=== PATIENT | male | born 1935 ===

== ENCOUNTER 2016-12-09 20:04 | Inpatient (IN) | payer MEDICARE, MEDICAID ==
[2016-12-09] MEDS ORDERED: Albuterol-Ipratrop 3 mg / 0.5 (3 ml) UD INH STA (21:22)
--- NOTE | 2016-12-09 21:29 | ED PDOC ---
HPI: Psych/Substance Abuse Time Seen by Provider: 12/09/16 20:08 Chief Complaint (Nursing): Psychiatric Evaluation Chief Complaint (Provider): Psychiatric Evaulation History Per: Other (Nursing report/patient's medication list) History/Exam Limitations: clinical condition Onset/Duration Of Symptoms: Hrs Current Symptoms Are (Timing): Still Present Additional Complaint(s): 20:08 Lorne Marin, an 81 year old male with dementia, presents to the ED on 12/09/16 for a psychiatric evaluation following aggressive behavior reported in his half-way. According to the half-way report, the patient was attempting to hit the staff members and refused to take his medications for unknown reasons. The patient is a poor historian and only reports that he's having a lot of trouble sleeping due to shortness of breath, but is unable to give further details for how long this has been occurring. The patient cannot recall the events being described at the half-way and doesn't know who his doctor is. The patient denies any chest pain, but reports pain in his feet. Of note, the patient's past medical history is obtained through reviewing the patient's medication list. Past Medical History Reviewed: Historical Data, Nursing Documentation, Vital Signs Vital Signs: Last Vital Signs Temp 97.1 F L 12/09/16 20:07 Pulse 76 12/09/16 20:07 Resp 18 12/09/16 20:07 BP 126/55 L 12/09/16 20:07 Pulse Ox 99 12/09/16 20:07 - Medical History PMH: CHF, Dementia, Diabetes, HTN, Pneumonia - Family History Family History: States: Unknown Family Hx - Living Arrangements Living Arrangements: Skilled Nursing/Assist Lvng - Home Medications Home Medications: Ambulatory Orders Medication Instructions Recorded Acetaminophen [Tylenol 325mg tab] 650 mg PO Q4 PRN 12/09/16 Acetaminophen [Tylenol 325mg tab] 650 mg PO Q4 PRN 12/09/16 Albuterol/Ipratropium [Duoneb 3 1 vial INH Q6 PRN 12/09/16 mg/0.5 mg (3 ml) UD] Amino Acids/Protein Hydrolys 30 ml PO DAILY 12/09/16 [Provide Gold Regular Liquid] Atorvastatin [Lipitor] 20 mg PO HS 12/09/16 Bacitracin OINT [Bacitracin OINT] 1 appl TOP Q12 12/09/16 Bacitracin Zinc [Bacitracin Zinc] 1 appl TOP BID 12/09/16 Benzocaine/Menthol [Cepacol Sore 1 darrion PO DAILY PRN 12/09/16 Throat] Carvedilol [Coreg] 6.25 mg PO Q12 12/09/16 Divalproex [Depakote Sprinkles] 125 mg PO BID 12/09/16 Enoxaparin [Lovenox] 40 mg SC DAILY 12/09/16 Famotidine [Pepcid] 20 mg PO BID 12/09/16 Furosemide [Lasix] 20 mg PO DAILY 12/09/16 Gabapentin [Neurontin] 300 mg PO BID 12/09/16 LORazepam [Ativan] 0.5 mg PO Q12 PRN 12/09/16 LORazepam [Ativan] 0.5 mg PO Q8 PRN 12/09/16 Linagliptin [Tradjenta] 5 mg PO DAILY 12/09/16 Magnesium Hydroxide [Milk Of 30 ml PO Q4 PRN 12/09/16 Magnesia] Nystatin [Nystop] 1 appl TOP DAILY 12/09/16 Petrolatum,White/Lanolin [Vitamin 1 appl TOP DAILY 12/09/16 A & D Ointment] Potassium Chloride [K-Dur 20 mEq 20 meq PO DAILY 12/09/16 ER Tab] Sennosides [Natural Senna Laxative] 8.6 mg PO DAILY PRN 12/09/16 Silver Sulfadiazine 1% [Silvadene 1 appl TOP BID 12/09/16 1%] Temazepam [Restoril] 7.5 mg PO HS PRN 12/09/16 traMADol [Ultram] 50 mg PO Q6 PRN 12/09/16 Home Med [Home Med] 1 tab SL DAILY 12/10/16 Home Med [Home Med] 30 ml PO Q4 PRN 12/10/16 - Allergies Allergies/Adverse Reactions: Allergies Allergy/AdvReac Type Severity Reaction Status Date / Time No Known Allergies Allergy Verified 12/09/16 20:07 Review of Systems Review Of Systems: ROS cannot be obtained secondary to pt's inabilty to answer questions. (cannot be obtained due to patient's baseline mental status) Cardiovascular: Negative for: Chest Pain Musculoskeletal: Positive for: Foot Pain Physical Exam - Reviewed Nursing Documentation Reviewed: Yes Vital Signs Reviewed: Yes - Physical Exam Appears: Positive for: Non-toxic, No Acute Distress Head Exam: Positive for: ATRAUMATIC, NORMOCEPHALIC Skin: Positive for: Warm, Dry, Pallor Eye Exam: Positive for: Normal appearance, EOMI, PERRL ENT: Positive for: Pharynx Is (Clear), Other (Moist Mucus Membranes) Neck: Positive for: Normal, Painless ROM, Supple Cardiovascular/Chest: Positive for: Irregularly Irregular. Negative for: Murmur Respiratory: Positive for: Accessory Muscle Use (specifically abdominal breathing), Rhonchi (diffuse b/l) Gastrointestinal/Abdominal: Positive for: Normal Exam, Soft. Negative for: Tenderness, Distended, Guarding, Rebound Back: Positive for: Normal Inspection. Negative for: Decreased ROM Extremity: Positive for: Swelling (Trace bilateral lower leg edema), Other ( multiple ecchymotic lesions noted to extremities; skin breakdown on left heel; abrasions on toes bilaterally; bilateral feet are cool with weak pedal pulses) Lymphatic: Negative for: Adenopathy Neurologic/Psych: Positive for: Alert, Oriented (x2). Negative for: Motor/ Sensory Deficits - Laboratory Results Result Diagrams: 12/10/16 05:05 12/10/16 05:10 - ECG O2 Sat by Pulse Oximetry: 99 (RA) Pulse Ox Interpretation: Normal Medical Decision Making Medical Decision Makin:08 Initial Impression: Altered Mental Status and Shortness of Breath Differential diagnoses includes CHF, COPD exacerbation, pneumonia, sepsis, electrolyte abnormality, dementia Initial Plan: * Chest Portable [RAD] Stat * Type and Screen Routine * ABG Shock Panel Stat * EKG Stat * Alcohol Serum Stat * B-type Natriuretic Peptide Stat * COMP Metabolic Panel Stat * LACT Acid, Plasma Stat * Magnesium Stat * Phosphorus Stat * Troponin I Stat * ED Urine Dipstick (POC) Stat * CBC (with differential) * Partial Thromboplastin time [COAG] Stat * Prothrombin Time [COAG] Stat * Duoneb 3 mg/0.5 mg (3 ml) UD 3ml INH Stat * Lasix 40 mg IVP Stat * Blood Culture Stat Pt appears more comfortable breathing post nebs. CXR demonstrate no inf/eff. Pt to be hospitalized for COPD/CHF exacerbation. [facility] Pt began to become agitated in ER (possible owning) and unable to redirect. Given initially ativan (which is prescribed for half-way stay as well. Also given Haldol. Scribe Attestation: Documented by Renetta Willis, training under Jayde Jimenez, acting as a scribe for Shana Ferguson MD. Provider Scribe Attestation: All medical record entries made by the Scribe were at my direction and personally dictated by me. I have reviewed the chart and agree that the record accurately reflects my personal performance of the history, physical exam, medical decision making, and the department course for this patient. I have also personally directed, reviewed, and agree with the discharge instructions and disposition. Disposition - Clinical Impression Clinical Impression: Altered mental status, CHF exacerbation, COPD exacerbation - Disposition Disposition Time: 22:00 Condition: FAIR - Pt Status Changed To: Hospital Disposition Of: Inpatient - Admit Certification Admit to Inpatient:: After my assessment, the patient will require hospitalization for at least two midnights. This is because of the severity of symptoms shown, intensity of services needed, and/or the medical risk in this patient being treated as an outpatient. - POA Present On Arrival: None
[2016-12-09 21:30] LABS: BASO # 0.1 K/uL (0.0-0.2); BASO % 1.5 % (0.0-2.0); EOS # 0.3 K/uL (0.0-0.7); EOS % 3.7 % (0.0-4.0); HEMATOCRIT 41.3 % (35.0-51.0); LYMPH # 1.1 K/uL (1.0-4.3); MEAN CELL VOLUME 96.1 fl (80.0-94.0); MEAN CORPUSCULAR HGB CONC 33.3 g/dL (33.0-37.0); MONO # 0.8 K/uL (0.0-0.8); MONO % 9.4 % (0.0-10.0); NEUT # 6.1 K/uL (1.8-7.0); NEUT % 72.4 % (50.0-75.0); RED CELL DISTRIBUTION WIDTH 13.2 % (11.5-14.5); WHITE BLOOD COUNT 8.4 K/uL (4.8-10.8)
[2016-12-09 21:41] LABS: ALCOHOL SERUM < 10 mg/dl (0-10); ALKALINE PHOSPHATASE 87 U/L (38-126); ALT/SGPT 82 U/L (21-72); AST/SGOT 70 U/L (17-59); BILIRUBIN,TOTAL 1.1 mg/dl (0.2-1.3); BLOOD UREA NITROGEN 12 mg/dl (9-20); CALCIUM 8.7 mg/dL (8.4-10.2); CARBON DIOXIDE 32 mmol/L (22-30); CHLORIDE 103 mmol/L (98-107); GFR AFRICAN-AMERICAN > 60; GLUCOSE,RANDOM 126 mg/dL (75-110); MAGNESIUM 2.1 MG/DL (1.6-2.3); PHOSPHOROUS 2.4 mg/dl (2.5-4.5); POTASSIUM 4.1 MMOL/L (3.6-5.0); SODIUM 144 mmol/l (132-148)
[2016-12-09] MEDS ORDERED: Albuterol-Ipratrop 3 mg / 0.5 (3 ml) UD ONE (22:26)
[2016-12-09 22:59] LABS: PARTIAL THROMBOPLASTIN TIME 25.1 SECONDS (23.3-32.5)
[2016-12-10 00:43] LABS: RBC URINE 1 /hpf (0-3); URINE BILIRUBIN NEGATIVE (NEGATIVE); URINE BLOOD SMALL (NEGATIVE); URINE COLOR COLORLESS (YELLOW); URINE GLUCOSE (UA) NEG (Normal); URINE KETONE NEGATIVE (NEGATIVE); URINE LEUKOCYTE ESTERASE NEG Leu/uL (Negative); URINE PROTEIN NEGATIVE (NEGATIVE); URINE UROBILINOGEN 0.2-1.0 mg/dL (0.2-1.0); WBC URINE < 1 /hpf (0-5)
[2016-12-10] MEDS ORDERED: Magnesium Hydroxide Susp 30 ml UD PO PRN (02:08)
[2016-12-10] MEDS ORDERED: Benzocaine/Menthol (Cepacol) Lozenge PO PRN (02:08)
[2016-12-10] MEDS ORDERED: TEMAZEPAM 7.5 MG PO PRN (02:08)
[2016-12-10 06:54] LABS: BASO # 0.1 K/uL (0.0-0.2); BASO % 0.7 % (0.0-2.0); EOS # 0.4 K/uL (0.0-0.7); EOS % 3.7 % (0.0-4.0); HEMATOCRIT 40.2 % (35.0-51.0); LYMPH # 1.3 K/uL (1.0-4.3); LYMPH % 13.3 % (20.0-40.0); MEAN CELL VOLUME 95.1 fl (80.0-94.0); MEAN CORPUSCULAR HEMOGLOBIN 31.8 pg (27.0-31.0); MEAN CORPUSCULAR HGB CONC 33.4 g/dL (33.0-37.0); MEAN PLATELET VOLUME 10.7 fl (7.2-11.7); MONO # 1.1 K/uL (0.0-0.8); MONO % 11.2 % (0.0-10.0); NEUT % 71.1 % (50.0-75.0); NRBC % 0.2 % (0.0-0.0); RED CELL DISTRIBUTION WIDTH 12.9 % (11.5-14.5); WHITE BLOOD COUNT 9.8 K/uL (4.8-10.8)
[2016-12-10 07:05] LABS: ALKALINE PHOSPHATASE 96 U/L (38-126); ALT/SGPT 81 U/L (21-72); AST/SGOT 55 U/L (17-59); BLOOD UREA NITROGEN 11 mg/dl (9-20); CALCIUM 8.7 mg/dL (8.4-10.2); CARBON DIOXIDE 33 mmol/L (22-30); CHLORIDE 101 mmol/L (98-107); GFR AFRICAN-AMERICAN > 60; GLUCOSE,RANDOM 122 mg/dL (75-110); POTASSIUM 3.3 MMOL/L (3.6-5.0); SODIUM 147 mmol/l (132-148); TOTAL PROTEIN 5.7 G/DL (6.3-8.2)
--- NOTE | 2016-12-10 07:14 | CP.PCM.HP ---
History of Present Illness - History of Present Illness History of Present Illness: pt sent by [facility] for agitation/confusion. no other complaints. no cp, dyspnea. was initiated stated to have chf/copd exacerbation in er but cardio stated that there is no further tx to be rednered fo these dx. pt in o distress. pt is agitated pulling at [place]. Present on Admission - Present on Admission Any Indicators Present on Admission: No Review of Systems - Psychiatric Psychiatric: As Per HPI, Behavioral Changes Past Patient History - Past Social History Smoking Status: Never Smoked - CARDIAC Hx Cardiac Disorders: Yes - PULMONARY Hx Respiratory Disorders: Yes - NEUROLOGICAL Hx Dementia: Yes - ENDOCRINE/METABOLIC Hx Endocrine Disorders: Yes - MUSCULOSKELETAL/RHEUMATOLOGICAL Hx Falls: (na) - PSYCHIATRIC Hx Psychophysiologic Disorder: Yes Meds Allergies/Adverse Reactions: Allergies Allergy/AdvReac Type Severity Reaction Status Date / Time No Known Allergies Allergy Verified 12/09/16 20:07 Physical Exam - Constitutional Appears: Well, Non-toxic, No Acute Distress - Head Exam Head Exam: ATRAUMATIC, NORMAL INSPECTION, NORMOCEPHALIC - Eye Exam Eye Exam: EOMI, Normal appearance, PERRL Pupil Exam: NORMAL ACCOMODATION, PERRL - ENT Exam ENT Exam: Mucous Membranes Moist, Normal Exam - Neck Exam Neck exam: Positive for: Normal Inspection - Respiratory Exam Respiratory Exam: Clear to Auscultation Bilateral, NORMAL BREATHING PATTERN - Cardiovascular Exam Cardiovascular Exam: REGULAR RHYTHM, RRR, +S1, +S2 - GI/Abdominal Exam GI & Abdominal Exam: Normal Bowel Sounds, Soft. absent: Tenderness - Extremities Exam Extremities exam: Positive for: full ROM, normal capillary refill, normal inspection, pedal pulses present - Back Exam Back exam: NORMAL INSPECTION - Neurological Exam Neurological exam: Alert, CN II-XII Intact, Normal Gait, Oriented x3, Reflexes Normal - Psychiatric Exam Psychiatric exam: Normal Affect, Normal Mood - Skin Skin Exam: Dry, Intact, Normal Color, Warm Results - Vital Signs Recent Vital Signs: Last Vital Signs Temp 98.4 F 12/10/16 01:12 Pulse 83 12/10/16 01:12 Resp 22 12/10/16 03:57 BP 132/55 L 12/10/16 01:12 Pulse Ox 99 12/10/16 03:57 - Labs Result Diagrams: 12/10/16 05:05 04/26/17 05:10 Labs: Laboratory Results - last 24 hr 12/10/16 12/10/16 00:00 05:19 POC Glucose (mg/dL) 125 H Urine Color Colorless Urine Clarity Clear Urine pH 7.0 Ur Specific [place] 1.005 Urine Protein Negative Urine Glucose (UA) Neg Urine Ketones Negative Urine Blood Small Urine Nitrate Negative Urine Bilirubin Negative Urine Urobilinogen 0.2-1.0 Ur Leukocyte Esterase Neg Urine RBC (Auto) 1 Urine Microscopic WBC < 1 Assessment & Plan (1) DVT prophylaxis Assessment and Plan: scd and aehose lovenox Status: Acute (2) Altered mental status Assessment and Plan: likely dmentia related neuro incr depakote as level not therapeutic psych for geropsych admission Status: Acute (3) CHF exacerbation Assessment and Plan: cont meds, cardio Status: Acute (4) COPD exacerbation Assessment and Plan: cont home meds Status: Acute Decision To Admit - Pt Status Changed To: Hospital Disposition Of: Observation - . Bed Request Type: Telemetry Admitting Physician: Gertrude Garcia
--- NOTE | 2016-12-10 08:25 | CP.PCM.CON ---
History of Present Illness - History of Present Illness History of Present Illness: Patient was brought to [facility] for evaluation of chest pain The patien has been agitated and does not provide history. He is llying comfortably in bed, He is attempting to pull off telmetry monitor. Review of Systems - Review of Systems Systems not reviewed;Unavailable: Altered Mental Status Past Patient History - Past Social History Smoking Status: Never Smoked - CARDIAC Hx Cardiac Disorders: Yes - PULMONARY Hx Respiratory Disorders: Yes - NEUROLOGICAL Hx Dementia: Yes - ENDOCRINE/METABOLIC Hx Endocrine Disorders: Yes - MUSCULOSKELETAL/RHEUMATOLOGICAL Hx Falls: (na) - PSYCHIATRIC Hx Psychophysiologic Disorder: Yes Meds Allergies/Adverse Reactions: Allergies Allergy/AdvReac Type Severity Reaction Status Date / Time No Known Allergies Allergy Verified 12/09/16 20:07 - Medications Medications: Current Medications Acetaminophen (Tylenol 325mg Tab) 650 mg PO Q4 PRN PRN Reason: Pain, Mild (1-3) Albuterol/Ipratropium (Duoneb 3 Mg/0.5 Mg (3 Ml) Ud) 3 ml INH Q6 PRN PRN Reason: Shortness of Breath Atorvastatin Calcium (Lipitor) 20 mg PO HS [facility] Bacitracin (Bacitracin Oint) 1 applic TOP Q12 [facility] Benzocaine/Menthol (Cepacol Sore Throat) 1 darrion PO DAILY PRN PRN Reason: Sore Throat Carvedilol (Coreg) 6.25 mg PO Q12 [facility] Divalproex Sodium (Depakote Sprinkles) 125 mg PO BID [facility] Enoxaparin Sodium (Lovenox) 40 mg SC DAILY [facility] PRN Reason: Protocol Famotidine (Pepcid) 20 mg PO BID [facility] Furosemide (Lasix) 20 mg PO DAILY [facility] Gabapentin (Neurontin) 300 mg PO BID [facility] Home Med (Amino Acids/Protein Hydrolys [Provide Gold Regular Liquid]) 30 ml PO DAILY [facility] Lorazepam (Ativan) 0.5 mg PO Q8 PRN PRN Reason: Agitation Lorazepam (Ativan) 0.5 mg IVP Q8 PRN PRN Reason: Agitation Last Admin: 12/10/16 08:13 Dose: 0.5 mg Magnesium Hydroxide (Milk Of Magnesia) 30 ml PO Q4 PRN PRN Reason: Heartburn Nystatin (Nystop Topical Powder) 1 applic TOP DAILY [facility] Potassium Chloride (K-Dur 20 Meq Er Tab) 20 meq PO DAILY [facility] Sennosides (Senokot Tab) 8.6 mg PO DAILY PRN PRN Reason: Constipation Silver Sulfadiazine (Silvadene 1% 20 Gm) 1 ea TOP BID [facility] Sitagliptin Phosphate (Januvia) 100 mg PO DAILY [facility] Temazepam (Restoril) 7.5 mg PO HS PRN PRN Reason: Insomnia Tramadol HCl (Ultram) 50 mg PO Q6 PRN PRN Reason: Pain, moderate (4-7) Vitamin A (Vitamin A & D Oint Ud Foilpak) 1 ea TOP DAILY [facility] Physical Exam - Constitutional Appears: Confused - Head Exam Head Exam: NORMAL INSPECTION - Eye Exam Eye Exam: Normal appearance - ENT Exam ENT Exam: Mucous Membranes Moist - Neck Exam Neck exam: Positive for: Full Rom - Respiratory Exam Respiratory Exam: Decreased Breath Sounds - Cardiovascular Exam Cardiovascular Exam: REGULAR RHYTHM - GI/Abdominal Exam GI & Abdominal Exam: Normal Bowel Sounds - Rectal Exam Rectal Exam: Deferred - Extremities Exam Extremities exam: Positive for: pedal edema - Back Exam Back exam: NORMAL INSPECTION - Neurological Exam Neurological exam: Alert, Oriented x3 - Psychiatric Exam Psychiatric exam: Normal Affect Results - Vital Signs Recent Vital Signs: Last Vital Signs Temp 97.9 F 12/10/16 08:15 Pulse 50 L 12/10/16 08:15 Resp 18 12/10/16 08:15 BP 132/77 12/10/16 08:15 Pulse Ox 94 L 12/10/16 08:15 - Labs Result Diagrams: 12/11/16 05:05 12/11/16 05:05 Labs: Laboratory Results - last 24 hr 12/10/16 12/10/16 12/10/16 00:00 05:05 05:10 WBC 9.8 RBC 4.23 L Hgb 13.4 Hct 40.2 MCV 95.1 H MCH 31.8 H MCHC 33.4 RDW 12.9 Plt Count 151 MPV 10.7 Neut % (Auto) 71.1 Lymph % (Auto) 13.3 L [place] % (Auto) 11.2 H Eos % (Auto) 3.7 Baso % (Auto) 0.7 Neut # 7.0 Lymph # 1.3 [place] # 1.1 H Eos # 0.4 Baso # 0.1 Sodium 147 Potassium 3.3 L Chloride 101 Carbon Dioxide 33 H Anion Gap 16 BUN 11 Creatinine 0.8 Est GFR ( Amer) > 60 Est GFR (Non-Af Amer) > 60 POC Glucose (mg/dL) Random Glucose 122 H Calcium 8.7 Total Bilirubin 1.0 AST 55 ALT 81 H Alkaline Phosphatase 96 Troponin I < 0.0120 NT-Pro-B Natriuret Pep 230 Total Protein 5.7 L Albumin 2.9 L Globulin 2.8 Albumin/Globulin Ratio 1.0 Urine Color Colorless Urine Clarity Clear Urine pH 7.0 Ur Specific [place] 1.005 Urine Protein Negative Urine Glucose (UA) Neg Urine Ketones Negative Urine Blood Small Urine Nitrate Negative Urine Bilirubin Negative Urine Urobilinogen 0.2-1.0 Ur Leukocyte Esterase Neg Urine RBC (Auto) 1 Urine Microscopic WBC < 1 12/10/16 05:19 WBC RBC Hgb Hct MCV MCH MCHC RDW Plt Count MPV Neut % (Auto) Lymph % (Auto) [place] % (Auto) Eos % (Auto) Baso % (Auto) Neut # Lymph # [place] # Eos # Baso # Sodium Potassium Chloride Carbon Dioxide Anion Gap BUN Creatinine Est GFR ( Amer) Est GFR (Non-Af Amer) POC Glucose (mg/dL) 125 H Random Glucose Calcium Total Bilirubin AST ALT Alkaline Phosphatase Troponin I NT-Pro-B Natriuret Pep Total Protein Albumin Globulin Albumin/Globulin Ratio Urine Color Urine Clarity Urine pH Ur Specific [place] Urine Protein Urine Glucose (UA) Urine Ketones Urine Blood Urine Nitrate Urine Bilirubin Urine Urobilinogen Ur Leukocyte Esterase Urine RBC (Auto) Urine Microscopic WBC - EKG Data EKG Interpreted by: Myself Assessment & Plan (1) Chest pain Assessment and Plan: unclear etiology. Patient does not offer history. would consider checking cardiac enzymes. If negative no further workup required. Status: Acute
--- NOTE | 2016-12-10 08:42 | CARD ---
APPROVED REPORT EKG Measurement Heart [id number] <Conclusion> Sinus rhythm with APCs. Low voltage QRS Abnormal ECG
[2016-12-10] MEDS ORDERED: Potassium Chloride 20 mEq/15 ml LIQ UD PO ONE (08:57)
[2016-12-10] MEDS ORDERED: AMINO ACIDS PO SCH (09:00)
[2016-12-10] MEDS ORDERED: APPL TOP SCH (09:00)
[2016-12-10] MEDS ORDERED: LANOLIN TOP SCH (09:00)
[2016-12-10] MEDS ORDERED: PETROLATUM WHITE TOP SCH (09:00)
[2016-12-10] MEDS ORDERED: PROTEIN HYDROLYS PO SCH (09:00)
[2016-12-10] MEDS ORDERED: Divalproex 125 mg Sprinkle Capsule PO SCH (09:00)
[2016-12-10] MEDS ORDERED: [UNRECOGNIZED DRUG - OTHER] TOP SCH (09:00)
[2016-12-10] MEDS: Bacitracin OINT 15GM TOP SCH ×2 (11:13→21:15)
[2016-12-10] MEDS: Enoxaparin 40 mg Syringe SC SCH (11:14)
[2016-12-10] MEDS: Vitamins A & D Oint UD Foilpak TOP SCH (11:15)
[2016-12-10] MEDS: Silver Sulfadiazine 1% Cream (20 gm) TOP SCH ×2 (11:15→16:23)
[2016-12-10] MEDS: Potassium Chloride 20 mEq ER Tab PO SCH (11:15)
--- NOTE | 2016-12-10 11:19 | RAD ---
HISTORY: Shortness of breath. Upright study 21:00. COMPARISON: No prior. FINDINGS: LUNGS: Atelectasis at the lung bases. PLEURA: No significant pleural effusion identified, no pneumothorax apparent. CARDIOVASCULAR: No radiographic findings to suggest acute or significant cardiovascular disease. OSSEOUS STRUCTURES: No significant abnormalities. VISUALIZED UPPER ABDOMEN: Normal. OTHER FINDINGS: None. IMPRESSION: No active disease.
--- NOTE | 2016-12-10 14:02 | CP.PCM.CON ---
History of Present Illness - History of Present Illness History of Present Illness: psychiatry consult ordered by yulisa virk reason: agitation reviewed chart, spoke to Betsy Jeffries apn. pt is now away at a CT scan. he is sedated from getting haldol, ativan eariler today. will reassess in morning would avoid using ativan as it may worsen confusion and disinhibit pt as well as increase fall risk would use risperdal mtab 0.5mg q6hr for agitation would check a depakote level and t/c titrating up dose for aggression again, will reassess in am when pt is awake and not at CT Past Patient History - Past Social History Smoking Status: Never Smoked - CARDIAC Hx Cardiac Disorders: Yes - PULMONARY Hx Respiratory Disorders: Yes - NEUROLOGICAL Hx Dementia: Yes - ENDOCRINE/METABOLIC Hx Endocrine Disorders: Yes - MUSCULOSKELETAL/RHEUMATOLOGICAL Hx Falls: (na) - PSYCHIATRIC Hx Psychophysiologic Disorder: Yes Meds Allergies/Adverse Reactions: Allergies Allergy/AdvReac Type Severity Reaction Status Date / Time No Known Allergies Allergy Verified 12/09/16 20:07 - Medications Medications: Current Medications Acetaminophen (Tylenol 325mg Tab) 650 mg PO Q4 PRN PRN Reason: Pain, Mild (1-3) Albuterol/Ipratropium (Duoneb 3 Mg/0.5 Mg (3 Ml) Ud) 3 ml INH Q6 PRN PRN Reason: Shortness of Breath Atorvastatin Calcium (Lipitor) 20 mg PO HS [facility] Bacitracin (Bacitracin Oint) 1 applic TOP Q12 [facility] Last Admin: 12/10/16 11:13 Dose: Not Given Benzocaine/Menthol (Cepacol Sore Throat) 1 darrion PO DAILY PRN PRN Reason: Sore Throat Carvedilol (Coreg) 6.25 mg PO Q12 [facility] Last Admin: 12/10/16 11:13 Dose: Not Given Divalproex Sodium (Depakote Sprinkles) 125 mg PO BID [facility] Last Admin: 12/10/16 11:14 Dose: Not Given Enoxaparin Sodium (Lovenox) 40 mg SC DAILY [facility] PRN Reason: Protocol Last Admin: 12/10/16 11:14 Dose: Not Given Famotidine (Pepcid) 20 mg PO BID [facility] Last Admin: 12/10/16 11:15 Dose: Not Given Furosemide (Lasix) 20 mg PO DAILY [facility] Last Admin: 12/10/16 11:14 Dose: Not Given Gabapentin (Neurontin) 300 mg PO BID [facility] Last Admin: 12/10/16 11:15 Dose: Not Given Home Med (Amino Acids/Protein Hydrolys [Provide Gold Regular Liquid]) 30 ml PO DAILY [facility] Lorazepam (Ativan) 0.5 mg PO Q8 PRN PRN Reason: Agitation Lorazepam (Ativan) 0.5 mg IVP Q8 PRN PRN Reason: Agitation Last Admin: 12/10/16 08:13 Dose: 0.5 mg Magnesium Hydroxide (Milk Of Magnesia) 30 ml PO Q4 PRN PRN Reason: Heartburn Nystatin (Nystop Topical Powder) 1 applic TOP DAILY [facility] Last Admin: 12/10/16 11:15 Dose: Not Given Potassium Chloride (K-Dur 20 Meq Er Tab) 20 meq PO DAILY [facility] Last Admin: 12/10/16 11:15 Dose: Not Given Sennosides (Senokot Tab) 8.6 mg PO DAILY PRN PRN Reason: Constipation Silver Sulfadiazine (Silvadene 1% 20 Gm) 1 ea TOP BID [facility] Last Admin: 12/10/16 11:15 Dose: Not Given Sitagliptin Phosphate (Januvia) 100 mg PO DAILY [facility] Last Admin: 12/10/16 11:14 Dose: Not Given Temazepam (Restoril) 7.5 mg PO HS PRN PRN Reason: Insomnia Tramadol HCl (Ultram) 50 mg PO Q6 PRN PRN Reason: Pain, moderate (4-7) Vitamin A (Vitamin A & D Oint Ud Foilpak) 1 ea TOP DAILY [facility] Last Admin: 12/10/16 11:15 Dose: Not Given Results - Vital Signs Recent Vital Signs: Last Vital Signs Temp 98.0 F 12/10/16 12:23 Pulse 102 H 12/10/16 12:23 Resp 20 12/10/16 12:23 BP 133/69 12/10/16 12:23 Pulse Ox 95 12/10/16 12:23 - Labs Result Diagrams: 12/10/16 05:05 12/10/16 05:10
--- NOTE | 2016-12-10 15:06 | CT ---
PROCEDURE: CT HEAD WITHOUT CONTRAST. HISTORY: AMS COMPARISON: None available. TECHNIQUE: Axial computed tomography images were obtained through the head/brain without intravenous contrast. Radiation dose: Total exam DLP = 1860.40 mGy-cm. This CT exam was performed using one or more of the following dose reduction techniques: Automated exposure control, adjustment of the mA and/or kV according to patient size, and/or use of iterative reconstruction technique. FINDINGS: Please note that this examination is incomplete. Patient uncooperative and moving during examination. A portion of the posterior fossa was not evaluated this examination. This includes a portion of the inferior occipital lobes and the cerebellum. . HEMORRHAGE: No intracranial hemorrhage. BRAIN: No intracranial mass. Moderate age-appropriate diffuse atrophy. Mild periventricular white matter lucency consistent with microvascular ischemic change. Very small lacunar infarct in body of left caudate nucleus. No evidence of acute infarct. VENTRICLES: Mild ex vacuo dilatation consistent with degree surrounding atrophy. No hydrocephalus. No midline shift. CALVARIUM: Unremarkable PARANASAL SINUSES: Mild chronic pansinusitis. MASTOID AIR CELLS: Bilateral mastoid effusions, nonspecific. OTHER FINDINGS: None. IMPRESSION: Limited examination. Due to patient motion and uncooperative 80, a portion of the posterior fossa was not evaluated at this time. No intracranial mass, hemorrhage or evidence of acute infarct. Mild chronic pansinusitis. Bilateral nonspecific mastoid effusions. Age-appropriate involutional changes.
--- NOTE | 2016-12-10 16:50 | CP.PCM.CON ---
History of Present Illness - History of Present Illness History of Present Illness: Mr. Marin is an 81-year-old man with dementia who was transferred from the custodial after he became combative and agitated. The patient continues to be confused and is difficult to converse with. He continuously moves his arms and legs in a resistant manner and seems to be upset about his positioning. He just recently returned form CT scan of the head, which did not show any acute findings despite a significant amount of motion artifact. Review of Systems - Review of Systems Systems not reviewed;Unavailable: Dementia, Altered Mental Status Past Patient History - Past Social History Smoking Status: Never Smoked - CARDIAC Hx Cardiac Disorders: Yes - PULMONARY Hx Respiratory Disorders: Yes - NEUROLOGICAL Hx Dementia: Yes - ENDOCRINE/METABOLIC Hx Endocrine Disorders: Yes - MUSCULOSKELETAL/RHEUMATOLOGICAL Hx Falls: (na) - PSYCHIATRIC Hx Psychophysiologic Disorder: Yes Meds Allergies/Adverse Reactions: Allergies Allergy/AdvReac Type Severity Reaction Status Date / Time No Known Allergies Allergy Verified 12/09/16 20:07 - Medications Medications: Current Medications Acetaminophen (Tylenol 325mg Tab) 650 mg PO Q4 PRN PRN Reason: Pain, Mild (1-3) Albuterol/Ipratropium (Duoneb 3 Mg/0.5 Mg (3 Ml) Ud) 3 ml INH Q6 PRN PRN Reason: Shortness of Breath Atorvastatin Calcium (Lipitor) 20 mg PO HS [facility] Bacitracin (Bacitracin Oint) 1 applic TOP Q12 [facility] Last Admin: 12/10/16 11:13 Dose: Not Given Benzocaine/Menthol (Cepacol Sore Throat) 1 darrion PO DAILY PRN PRN Reason: Sore Throat Carvedilol (Coreg) 6.25 mg PO Q12 [facility] Last Admin: 12/10/16 11:13 Dose: Not Given Divalproex Sodium (Depakote Sprinkles) 250 mg PO BID [facility] Enoxaparin Sodium (Lovenox) 40 mg SC DAILY [facility] PRN Reason: Protocol Last Admin: 12/10/16 11:14 Dose: Not Given Famotidine (Pepcid) 20 mg PO BID [facility] Last Admin: 12/10/16 16:23 Dose: Not Given Furosemide (Lasix) 20 mg PO DAILY [facility] Last Admin: 12/10/16 11:14 Dose: Not Given Gabapentin (Neurontin) 300 mg PO BID [facility] Last Admin: 12/10/16 16:23 Dose: Not Given Home Med (Amino Acids/Protein Hydrolys [Provide Gold Regular Liquid]) 30 ml PO DAILY [facility] Lorazepam (Ativan) 0.5 mg PO Q8 PRN PRN Reason: Agitation Lorazepam (Ativan) 0.5 mg IVP Q8 PRN PRN Reason: Agitation Last Admin: 12/10/16 08:13 Dose: 0.5 mg Magnesium Hydroxide (Milk Of Magnesia) 30 ml PO Q4 PRN PRN Reason: Heartburn Nystatin (Nystop Topical Powder) 1 applic TOP DAILY [facility] Last Admin: 12/10/16 11:15 Dose: Not Given Potassium Chloride (K-Dur 20 Meq Er Tab) 20 meq PO DAILY [facility] Last Admin: 12/10/16 11:15 Dose: Not Given Risperidone (Risperdal Tab) 0.5 mg PO Q6 PRN PRN Reason: Agitation Sennosides (Senokot Tab) 8.6 mg PO DAILY PRN PRN Reason: Constipation Silver Sulfadiazine (Silvadene 1% 20 Gm) 1 ea TOP BID [facility] Last Admin: 12/10/16 16:23 Dose: Not Given Sitagliptin Phosphate (Januvia) 100 mg PO DAILY [facility] Last Admin: 12/10/16 11:14 Dose: Not Given Temazepam (Restoril) 7.5 mg PO HS PRN PRN Reason: Insomnia Tramadol HCl (Ultram) 50 mg PO Q6 PRN PRN Reason: Pain, moderate (4-7) Vitamin A (Vitamin A & D Oint Ud Foilpak) 1 ea TOP DAILY [facility] Last Admin: 12/10/16 11:15 Dose: Not Given Physical Exam - Constitutional Appears: Unkempt, Combative, Agitated, Confused - Head Exam Head Exam: ATRAUMATIC, NORMAL INSPECTION, NORMOCEPHALIC - Eye Exam Eye Exam: EOMI, Normal appearance, PERRL - ENT Exam ENT Exam: Mucous Membranes Moist, Normal Exam - Neck Exam Neck exam: Positive for: Normal Inspection - Respiratory Exam Respiratory Exam: Clear to Auscultation Bilateral, NORMAL BREATHING PATTERN - Cardiovascular Exam Cardiovascular Exam: REGULAR RHYTHM, +S1, +S2 - GI/Abdominal Exam GI & Abdominal Exam: Normal Bowel Sounds, Soft. absent: Tenderness - Rectal Exam Rectal Exam: Deferred - Back Exam Back exam: NORMAL INSPECTION - Neurological Exam Neurological exam: Altered Additional comments: Moves all extremities, speech is somewhat dysarthric, does not follow commands, answers only his name. Difficult to examine more extensively - Psychiatric Exam Psychiatric exam: Agitated Results - Vital Signs Recent Vital Signs: Last Vital Signs Temp 97.4 F L 12/10/16 16:00 Pulse 80 12/10/16 16:00 Resp 20 12/10/16 16:00 BP 129/83 12/10/16 16:00 Pulse Ox 96 12/10/16 16:00 - Labs Result Diagrams: 12/10/16 05:05 12/10/16 05:10 Labs: Laboratory Results - last 24 hr 12/10/16 12/10/16 12/10/16 14:13 14:13 16:13 POC Glucose (mg/dL) 164 H Vitamin B12 > 1000 H Valproic Acid < 10.0 L - Imaging and Cardiology CT scan - head Status: Image reviewed by me, Report reviewed by me (No acute findings. Poor quality. ) Assessment & Plan (1) Encephalopathy Assessment and Plan: The patient likely has advanced dementia and may have a psychiatric component as well. I recommend avoiding benzodiazepines, but may consider a small dose of Seroquel or Risperdal, per psychiatry. Continue adequate hydration with NS at 100 mL/hr, infectious work-up with cultures and urinalysis, DVT prophylaxis. Thank you for this consultation. Status: Acute Priority: High
[2016-12-10] MEDS: Divalproex 125 mg Sprinkle Capsule PO SCH (19:52)
[2016-12-10 22:32] LABS: FOLATE > 20.0 ng/mL
--- NOTE | 2016-12-11 06:53 | CP.PCM.PN ---
Subjective - Date & Time of Evaluation Date of Evaluation: 12/11/16 Time of Evaluation: 06:53 - Subjective Subjective: pt sleeping in bed w/ 1L1 at bedside. no distres. pt still w/ agitation requiring medication for sedation. pt pulled blackmon despite these monitoring. bw noted wnl. k low butpt on daily kdur. cleared by neuro and cardio pendign psych dispo Objective - Vital Signs/Intake and Output Vital Signs (last 24 hours): Temp Pulse Resp BP Pulse Ox 97.8 F 82 16 146/64 95 12/11/16 05:20 12/11/16 05:20 12/11/16 05:20 12/11/16 05:20 12/11/16 05:20 - Medications Medications: Current Medications Acetaminophen (Tylenol 325mg Tab) 650 mg PO Q4 PRN PRN Reason: Pain, Mild (1-3) Albuterol/Ipratropium (Duoneb 3 Mg/0.5 Mg (3 Ml) Ud) 3 ml INH Q6 PRN PRN Reason: Shortness of Breath Atorvastatin Calcium (Lipitor) 20 mg PO HS [facility] Last Admin: 12/10/16 21:16 Dose: 20 mg Bacitracin (Bacitracin Oint) 1 applic TOP Q12 [facility] Last Admin: 12/10/16 21:15 Dose: 1 applic Benzocaine/Menthol (Cepacol Sore Throat) 1 darrion PO DAILY PRN PRN Reason: Sore Throat Carvedilol (Coreg) 6.25 mg PO Q12 [facility] Last Admin: 12/10/16 21:15 Dose: 6.25 mg Divalproex Sodium (Depakote Sprinkles) 250 mg PO BID [facility] Last Admin: 12/10/16 19:52 Dose: Not Given Enoxaparin Sodium (Lovenox) 40 mg SC DAILY [facility] PRN Reason: Protocol Last Admin: 12/10/16 11:14 Dose: Not Given Famotidine (Pepcid) 20 mg PO BID [facility] Last Admin: 12/10/16 16:23 Dose: Not Given Furosemide (Lasix) 20 mg PO DAILY [facility] Last Admin: 12/10/16 11:14 Dose: Not Given Gabapentin (Neurontin) 300 mg PO BID [facility] Last Admin: 12/10/16 16:23 Dose: Not Given Home Med (Amino Acids/Protein Hydrolys [Provide Gold Regular Liquid]) 30 ml PO DAILY [facility] Lorazepam (Ativan) 0.5 mg PO Q8 PRN PRN Reason: Agitation Lorazepam (Ativan) 0.5 mg IVP Q8 PRN PRN Reason: Agitation Last Admin: 12/10/16 20:55 Dose: 0.5 mg Magnesium Hydroxide (Milk Of Magnesia) 30 ml PO Q4 PRN PRN Reason: Heartburn Nystatin (Nystop Topical Powder) 1 applic TOP DAILY [facility] Last Admin: 12/10/16 11:15 Dose: Not Given Potassium Chloride (K-Dur 20 Meq Er Tab) 20 meq PO DAILY [facility] Last Admin: 12/10/16 11:15 Dose: Not Given Risperidone (Risperdal Tab) 0.5 mg PO Q6 PRN PRN Reason: Agitation Sennosides (Senokot Tab) 8.6 mg PO DAILY PRN PRN Reason: Constipation Silver Sulfadiazine (Silvadene 1% 20 Gm) 1 ea TOP BID [facility] Last Admin: 12/10/16 16:23 Dose: Not Given Sitagliptin Phosphate (Januvia) 100 mg PO DAILY [facility] Last Admin: 12/10/16 11:14 Dose: Not Given Temazepam (Restoril) 7.5 mg PO HS PRN PRN Reason: Insomnia Tramadol HCl (Ultram) 50 mg PO Q6 PRN PRN Reason: Pain, moderate (4-7) Vitamin A (Vitamin A & D Oint Ud Foilpak) 1 ea TOP DAILY [facility] Last Admin: 12/10/16 11:15 Dose: Not Given - Labs Labs: PT 11.8 SECONDS (9.6-11.2) H 12/09/16 20:50 INR 1.13 (0.92-1.08) H 12/09/16 20:50 APTT 25.1 SECONDS (23.3-32.5) 12/09/16 20:50 - Constitutional Appears: Well, Non-toxic, No Acute Distress, Agitated - Head Exam Head Exam: ATRAUMATIC, NORMAL INSPECTION, NORMOCEPHALIC - Eye Exam Eye Exam: EOMI, Normal appearance, PERRL Pupil Exam: NORMAL ACCOMODATION, PERRL - ENT Exam ENT Exam: Mucous Membranes Moist, Normal Exam - Neck Exam Neck Exam: Full ROM, Normal Inspection. absent: Lymphadenopathy - Respiratory Exam Respiratory Exam: Clear to Ausculation Bilateral, NORMAL BREATHING PATTERN - Cardiovascular Exam Cardiovascular Exam: REGULAR RHYTHM, RRR, +S1, +S2. absent: Murmur - GI/Abdominal Exam GI & Abdominal Exam: Soft, Normal Bowel Sounds. absent: Tenderness - Extremities Exam Extremities Exam: Full ROM, Normal Capillary Refill, Normal Inspection. absent : Joint Swelling, Pedal Edema - Back Exam Back Exam: NORMAL INSPECTION - Neurological Exam Neurological Exam: Altered, Awake, CN II-XII Intact, Normal Gait - Psychiatric Exam Psychiatric exam: Normal Affect, Normal Mood - Skin Skin Exam: Dry, Intact, Normal Color, Warm Assessment and Plan (1) DVT prophylaxis Status: Acute (2) Altered mental status Status: Acute (3) CHF exacerbation Status: Acute (4) COPD exacerbation Status: Acute - Assessment and Plan (Free Text) Assessment: (1) DVT prophylaxis Assessment and Plan: scd and aehose lovenox Status: Acute (2) Altered mental status Assessment and Plan: likely dmentia related neuro incr depakote as level not therapeutic psych for geropsych admission Status: Acute (3) CHF exacerbation Assessment and Plan: cont meds, cardio Status: Acute (4) COPD exacerbation Assessment and Plan: cont home meds Status: Acute
[2016-12-11 07:13] LABS: BASO # 0.1 K/uL (0.0-0.2); BASO % 0.7 % (0.0-2.0); EOS # 0.3 K/uL (0.0-0.7); EOS % 2.9 % (0.0-4.0); HEMATOCRIT 37.3 % (35.0-51.0); LYMPH # 1.2 K/uL (1.0-4.3); LYMPH % 12.9 % (20.0-40.0); MEAN CELL VOLUME 95.1 fl (80.0-94.0); MEAN CORPUSCULAR HGB CONC 33.6 g/dL (33.0-37.0); MEAN PLATELET VOLUME 10.6 fl (7.2-11.7); MONO # 1.1 K/uL (0.0-0.8); MONO % 12.1 % (0.0-10.0); NEUT # 6.5 K/uL (1.8-7.0); NEUT % 71.4 % (50.0-75.0)
[2016-12-11 07:25] LABS: ALKALINE PHOSPHATASE 92 U/L (38-126); ALT/SGPT 74 U/L (21-72); AST/SGOT 40 U/L (17-59); BLOOD UREA NITROGEN 11 mg/dl (9-20); CALCIUM 8.4 mg/dL (8.4-10.2); CARBON DIOXIDE 32 mmol/L (22-30); CHLORIDE 101 mmol/L (98-107); GFR AFRICAN-AMERICAN > 60; GLUCOSE,RANDOM 124 mg/dL (75-110); POTASSIUM 3.3 MMOL/L (3.6-5.0); SODIUM 143 mmol/l (132-148); TOTAL PROTEIN 5.3 G/DL (6.3-8.2)
[2016-12-11] MEDS ORDERED: Divalproex 250 mg ER (ONCE DAILY formulation) PO SCH (09:00)
[2016-12-11 09:14] LABS: ABG ALLEN TEST YES; ARTERIAL BLOOD GAS HCO3 31.4 mmol/L (21-28); ARTERIAL BLOOD GAS PH 7.44 (7.35-7.45); ARTERIAL BLOOD GAS PO2 86 mm/Hg (80-100)
[2016-12-11] MEDS: Enoxaparin 40 mg Syringe SC SCH (09:40)
[2016-12-11] MEDS: Silver Sulfadiazine 1% Cream (20 gm) TOP SCH ×2 (09:41→18:15)
[2016-12-11] MEDS: Vitamins A & D Oint UD Foilpak TOP SCH (09:41)
[2016-12-11] MEDS: Divalproex 125 mg Sprinkle Capsule PO SCH ×2 (09:49→16:32)
[2016-12-11] MEDS: Bacitracin OINT 15GM TOP SCH ×2 (09:49→21:32)
[2016-12-11] MEDS: Potassium Chloride 20 mEq ER Tab PO SCH (09:49)
--- NOTE | 2016-12-11 11:56 | PQF GENQUE ---
Marshall Jiménez ENGINEER STEAM, Two (2) queries as follows: (1)Food Analyst documented the following information with no mention of this diagnosis in your documentation. Please indicate in your next progress note and/ or discharge summary your agreement with digital media sales consultant or provide clarification that this diagnosis is not a current condition. Diagnosis: Encephalopathy: Acute Documented by:Shamir Jackson MD Location: Consult Note: 12/10/2016 OR: Disagree OR: Other explanation of clinical finding (2) I f in agreement with the Diagnosis of Encephalopathy: AMS due to Dementia and Encephalopathy OR: Disagree OR:Other explanation of clinical finding Neurology Consult: 81-year-old man with dementia who was transferred from the [facility] after he became combative and agitated. The patient continues to be confused and is difficult to converse with. He continuously moves his arms and legs in a resistant manner and seems to be upset about his positioning. He just recently returned form CT scan of the head, which did not show any acute findings despite a significant amount of motion artifact Assessment ;Plan: (1) Encephalopathy Assessment and Plan: The patient likely has advanced dementia and may have a psychiatric component as well. I recommend avoiding benzodiazepines, but may consider a small dose of Seroquel or Risperdal , per psychiatry. Continue adequate hydration with NS at 100 mL/hr, infectious work-up with cultures and urinalysis, DVT prophylaxis. Status: Acute Priority: High 12/11 ENGINEER STEAM progress note: 2) Altered mental status: likely dmentia related ;neuro incr depakote as level not therapeutic,psych: for geropsych admission Status: Acute Psych consult pending This form is a permanent part of the medical record Clarification of your documentation is requested to better reflect the severity of illness and intensity of treatment of your patient. Indicators present [] Specify: [] [] Specify: [] [] Specify: [] [] Specify: [] Location in the medical record that reflects the above clinical findings: [] Treatment Provided: [] PHYSICIAN'S RESPONSE Based on your medical judgment of the clinical indicators outlined above please clarify the following: [] Practitioner response -agree w/ neuro note [] If unable to determine, please check the box, sign and date. Present On Admission (POA) Indicator: [] Present at the time of admission [] Not present at the time of admission [] Clinically Undetermined In responding to this query, please exercise your independent professional judgment. The fact that a question is asked does not imply that any particular answer is desired or expected. Thank you for your clarification on this documentation. If you have any questions please call. * Thank you, Brittaney Dubois RN BSN ext. #[phone] MTDD
--- NOTE | 2016-12-11 12:04 | PQF GENQUE ---
Marshall Jiménez NP, Please specify the type of heart failure exacerbation in your progress notes: 1. 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 Indicators present [] Specify: [] [] Specify: [] [] Specify: [] [] Specify: [] Location in the medical record that reflects the above clinical findings: [] Treatment Provided: [] PHYSICIAN'S RESPONSE Based on your medical judgment of the clinical indicators outlined above please clarify the following: [] Practitioner response chronic systolic chf [] If unable to determine, please check the box, sign and date. Present On Admission (POA) Indicator: [] Present at the time of admission [] Not present at the time of admission [] Clinically Undetermined In responding to this query, please exercise your independent professional judgment. The fact that a question is asked does not imply that any particular answer is desired or expected. Thank you for your clarification on this documentation. If you have any questions please call. * Thank you, Brittaney Dubois RN BSN ext. #[phone] MTDD
--- NOTE | 2016-12-11 12:58 | CP.PCM.CON ---
History of Present Illness - History of Present Illness History of Present Illness: psychiatry consult orderd by [facility] reason: agitation cc: pt sleeping hpi: pt has no history of dementia or any psych history per his and granddaughter who were present. pt is snoring loudly and it is difficult to arouse the patient. pt has gotten haldol and ativan for agitation. also takes restoril at night. family states aggression only started when he was sent to [facility]. family states they tried depakote there but pt spit it out. substance use history: last alcohol use was 30 years ago per the . no other substance use noted social: born in [place]. came to [place] in 1959. worked in [employer] mse: somnolent. episodes of confusion and agitation per chart. assessment: delirium r/o dementia with behavioral distrubance recommendations: would not give restoril or ativan as pt is somnolent will take time for haldol to wash out use prn risperdal mtab 0.5mg for aggression can restart the depakote but would use sprinkle formulation would continue 1:1 supervision pt is not in a [facility], but was sent there for rehab and he can return home per family Past Patient History - Past Social History Smoking Status: Never Smoked - CARDIAC Hx Cardiac Disorders: Yes - PULMONARY Hx Respiratory Disorders: Yes - NEUROLOGICAL Hx Dementia: Yes - ENDOCRINE/METABOLIC Hx Endocrine Disorders: Yes - MUSCULOSKELETAL/RHEUMATOLOGICAL Hx Falls: (na) - PSYCHIATRIC Hx Psychophysiologic Disorder: Yes Meds Allergies/Adverse Reactions: Allergies Allergy/AdvReac Type Severity Reaction Status Date / Time No Known Allergies Allergy Verified 12/09/16 20:07 - Medications Medications: Current Medications Acetaminophen (Tylenol 325mg Tab) 650 mg PO Q4 PRN PRN Reason: Pain, Mild (1-3) Albuterol/Ipratropium (Duoneb 3 Mg/0.5 Mg (3 Ml) Ud) 3 ml INH Q6 PRN PRN Reason: Shortness of Breath Atorvastatin Calcium (Lipitor) 20 mg PO HS [facility] Last Admin: 12/10/16 21:16 Dose: 20 mg Bacitracin (Bacitracin Oint) 1 applic TOP Q12 [facility] Last Admin: 12/11/16 09:49 Dose: 1 applic Benzocaine/Menthol (Cepacol Sore Throat) 1 darrion PO DAILY PRN PRN Reason: Sore Throat Carvedilol (Coreg) 6.25 mg PO Q12 [facility] Last Admin: 12/11/16 09:49 Dose: Not Given Divalproex Sodium (Depakote Sprinkles) 250 mg PO BID [facility] Last Admin: 12/11/16 09:49 Dose: Not Given Enoxaparin Sodium (Lovenox) 40 mg SC DAILY [facility] PRN Reason: Protocol Last Admin: 12/11/16 09:40 Dose: 40 mg Famotidine (Pepcid) 20 mg PO BID [facility] Last Admin: 12/11/16 09:50 Dose: Not Given Furosemide (Lasix) 20 mg PO DAILY [facility] Last Admin: 12/11/16 09:49 Dose: Not Given Gabapentin (Neurontin) 300 mg PO BID [facility] Last Admin: 12/11/16 09:48 Dose: Not Given Sodium Chloride (Sodium Chloride 0.9%) 1,000 mls @ 75 mls/hr IV .[id number] [facility] Stop: 12/12/16 09:52 Lorazepam (Ativan) 0.5 mg PO Q8 PRN PRN Reason: Agitation Lorazepam (Ativan) 0.5 mg IVP Q8 PRN PRN Reason: Agitation Last Admin: 12/10/16 20:55 Dose: 0.5 mg Magnesium Hydroxide (Milk Of Magnesia) 30 ml PO Q4 PRN PRN Reason: Heartburn Nystatin (Nystop Topical Powder) 1 applic TOP DAILY [facility] Last Admin: 12/11/16 09:50 Dose: 1 applic Potassium Chloride (K-Dur 20 Meq Er Tab) 20 meq PO DAILY [facility] Last Admin: 12/11/16 09:49 Dose: Not Given Risperidone (Risperdal Tab) 0.5 mg PO Q6 PRN PRN Reason: Agitation Sennosides (Senokot Tab) 8.6 mg PO DAILY PRN PRN Reason: Constipation Silver Sulfadiazine (Silvadene 1% 20 Gm) 1 ea TOP BID [facility] Last Admin: 12/11/16 09:41 Dose: 1 % Sitagliptin Phosphate (Januvia) 100 mg PO DAILY [facility] Last Admin: 12/11/16 09:49 Dose: Not Given Temazepam (Restoril) 7.5 mg PO HS PRN PRN Reason: Insomnia Tramadol HCl (Ultram) 50 mg PO Q6 PRN PRN Reason: Pain, moderate (4-7) Vitamin A (Vitamin A & D Oint Ud Foilpak) 1 ea TOP DAILY [facility] Last Admin: 12/11/16 09:41 Dose: 1 ea Results - Vital Signs Recent Vital Signs: Last Vital Signs Temp 98.6 F 12/11/16 12:36 Pulse 76 12/11/16 12:36 Resp 20 12/11/16 12:36 BP 122/49 L 12/11/16 12:36 Pulse Ox 99 12/11/16 12:36 - Labs Result Diagrams: 12/11/16 05:05 12/11/16 05:05 Labs: Laboratory Results - last 24 hr 12/10/16 12/10/16 12/10/16 14:13 14:13 14:13 WBC RBC Hgb Hct MCV MCH MCHC RDW Plt Count MPV Neut % (Auto) Lymph % (Auto) Charles % (Auto) Eos % (Auto) Baso % (Auto) Neut # Lymph # Charles # Eos # Baso # Sodium Potassium Chloride Carbon Dioxide Anion Gap BUN Creatinine Est GFR ( Amer) Est GFR (Non-Af Amer) POC Glucose (mg/dL) Random Glucose Calcium Total Bilirubin AST ALT Alkaline Phosphatase Total Protein Albumin Globulin Albumin/Globulin Ratio Vitamin B12 > 1000 H Folate > 20.0 Valproic Acid < 10.0 L RPR Nonreactive 12/10/16 12/10/16 12/11/16 16:13 21:45 05:05 WBC 9.0 RBC 3.93 L Hgb 12.6 Hct 37.3 MCV 95.1 H MCH 32.0 H MCHC 33.6 RDW 13.0 Plt Count 158 MPV 10.6 Neut % (Auto) 71.4 Lymph % (Auto) 12.9 L Charles % (Auto) 12.1 H Eos % (Auto) 2.9 Baso % (Auto) 0.7 Neut # 6.5 Lymph # 1.2 Charles # 1.1 H Eos # 0.3 Baso # 0.1 Sodium Potassium Chloride Carbon Dioxide Anion Gap BUN Creatinine Est GFR ( Amer) Est GFR (Non-Af Amer) POC Glucose (mg/dL) 164 H 148 H Random Glucose Calcium Total Bilirubin AST ALT Alkaline Phosphatase Total Protein Albumin Globulin Albumin/Globulin Ratio Vitamin B12 Folate Valproic Acid RPR 12/11/16 12/11/16 05:05 11:34 WBC RBC Hgb Hct MCV MCH MCHC RDW Plt Count MPV Neut % (Auto) Lymph % (Auto) Charles % (Auto) Eos % (Auto) Baso % (Auto) Neut # Lymph # Charles # Eos # Baso # Sodium 143 Potassium 3.3 L Chloride 101 Carbon Dioxide 32 H Anion Gap 13 BUN 11 Creatinine 0.7 L Est GFR ( Amer) > 60 Est GFR (Non-Af Amer) > 60 POC Glucose (mg/dL) 158 H Random Glucose 124 H Calcium 8.4 Total Bilirubin 1.0 AST 40 ALT 74 H Alkaline Phosphatase 92 Total Protein 5.3 L Albumin 2.6 L Globulin 2.7 Albumin/Globulin Ratio 1.0 Vitamin B12 Folate Valproic Acid RPR
[2016-12-11] MEDS: Sodium Chloride 0.9% 1,000 ML IV SCH ×2 (18:15→22:59)
[2016-12-12] MEDS: Albuterol-Ipratrop 3 mg / 0.5 (3 ml) UD INH PRN ×3 (02:37→22:54)
--- NOTE | 2016-12-12 07:51 | CP.PCM.PN ---
Subjective - Date & Time of Evaluation Date of Evaluation: 12/12/16 Time of Evaluation: 07:51 - Subjective Subjective: pt mental status about the same, meds continued and 1:1 continued for agitation. no f/c, nv/d. for psych dispo. Objective - Vital Signs/Intake and Output Vital Signs (last 24 hours): Temp Pulse Resp BP Pulse Ox 98 F 96 H 20 131/64 95 12/11/16 22:00 12/12/16 02:38 12/11/16 22:00 12/11/16 22:00 12/11/16 22:00 - Medications Medications: Current Medications Acetaminophen (Tylenol 325mg Tab) 650 mg PO Q4 PRN PRN Reason: Pain, Mild (1-3) Albuterol/Ipratropium (Duoneb 3 Mg/0.5 Mg (3 Ml) Ud) 3 ml INH Q6 PRN PRN Reason: Shortness of Breath Last Admin: 12/12/16 02:37 Dose: 3 ml Atorvastatin Calcium (Lipitor) 20 mg PO HS [facility] OF [facility] Last Admin: 12/11/16 21:32 Dose: 20 mg Bacitracin (Bacitracin Oint) 1 applic TOP Q12 [facility] Last Admin: 12/11/16 21:32 Dose: 1 applic Benzocaine/Menthol (Cepacol Sore Throat) 1 darrion PO DAILY PRN PRN Reason: Sore Throat Carvedilol (Coreg) 6.25 mg PO Q12 [facility] OF [facility] Last Admin: 12/11/16 21:33 Dose: 6.25 mg Divalproex Sodium (Depakote Sprinkles) 250 mg PO BID [facility] OF [facility] Last Admin: 12/11/16 16:32 Dose: 250 mg Enoxaparin Sodium (Lovenox) 40 mg SC DAILY [facility] PRN Reason: Protocol Last Admin: 12/11/16 09:40 Dose: 40 mg Famotidine (Pepcid) 20 mg PO BID [facility] Last Admin: 12/11/16 18:16 Dose: 20 mg Furosemide (Lasix) 20 mg PO DAILY [facility] Last Admin: 12/11/16 09:49 Dose: Not Given Gabapentin (Neurontin) 300 mg PO BID [facility] Last Admin: 12/11/16 16:33 Dose: 300 mg Sodium Chloride (Sodium Chloride 0.9%) 1,000 mls @ 75 mls/hr IV .[id number] ON LICENSE OF [facility] Stop: 12/12/16 09:52 Last Admin: 12/11/16 22:59 Dose: Not Given Lorazepam (Ativan) 0.5 mg PO Q8 PRN PRN Reason: Agitation Lorazepam (Ativan) 0.5 mg IVP Q8 PRN PRN Reason: Agitation Last Admin: 12/11/16 19:58 Dose: 0.5 mg Magnesium Hydroxide (Milk Of Magnesia) 30 ml PO Q4 PRN PRN Reason: Heartburn Nystatin (Nystop Topical Powder) 1 applic TOP DAILY [facility] Last Admin: 12/11/16 09:50 Dose: 1 applic Potassium Chloride (K-Dur 20 Meq Er Tab) 20 meq PO DAILY [facility] Last Admin: 12/11/16 09:49 Dose: Not Given Risperidone (Risperdal Tab) 0.5 mg PO Q6 PRN PRN Reason: Agitation Last Admin: 12/11/16 16:33 Dose: 0.5 mg Sennosides (Senokot Tab) 8.6 mg PO DAILY PRN PRN Reason: Constipation Silver Sulfadiazine (Silvadene 1% 20 Gm) 1 ea TOP BID ON [facility] OF [facility] Last Admin: 12/11/16 18:15 Dose: 1 % Sitagliptin Phosphate (Januvia) 100 mg PO DAILY [facility] Last Admin: 12/11/16 09:49 Dose: Not Given Temazepam (Restoril) 7.5 mg PO HS PRN PRN Reason: Insomnia Tramadol HCl (Ultram) 50 mg PO Q6 PRN PRN Reason: Pain, moderate (4-7) Vitamin A (Vitamin A & D Oint Ud Foilpak) 1 ea TOP DAILY ON [facility] OF [facility] Last Admin: 12/11/16 09:41 Dose: 1 ea - Labs Labs: 12/11/16 05:05 12/11/16 05:05 PT 11.8 SECONDS (9.6-11.2) H 12/09/16 20:50 INR 1.13 (0.92-1.08) H 12/09/16 20:50 APTT 25.1 SECONDS (23.3-32.5) 12/09/16 20:50 - Constitutional Appears: Well, Non-toxic, No Acute Distress - Head Exam Head Exam: ATRAUMATIC, NORMAL INSPECTION, NORMOCEPHALIC - Eye Exam Eye Exam: EOMI, Normal appearance, PERRL Pupil Exam: NORMAL ACCOMODATION, PERRL - ENT Exam ENT Exam: Mucous Membranes Moist, Normal Exam - Neck Exam Neck Exam: Full ROM, Normal Inspection. absent: Lymphadenopathy - Respiratory Exam Respiratory Exam: Clear to Ausculation Bilateral, NORMAL BREATHING PATTERN - Cardiovascular Exam Cardiovascular Exam: REGULAR RHYTHM, +S1, +S2. absent: Murmur - GI/Abdominal Exam GI & Abdominal Exam: Soft, Normal Bowel Sounds. absent: Tenderness - Extremities Exam Extremities Exam: Full ROM, Normal Capillary Refill, Normal Inspection. absent : Joint Swelling, Pedal Edema - Back Exam Back Exam: NORMAL INSPECTION - Neurological Exam Neurological Exam: Alert, Awake, CN II-XII Intact, Normal Gait, Oriented x3 - Psychiatric Exam Psychiatric exam: Normal Affect, Normal Mood - Skin Skin Exam: Dry, Intact, Normal Color, Warm Assessment and Plan (1) DVT prophylaxis Status: Acute (2) Altered mental status Status: Acute (3) CHF exacerbation Status: Acute (4) COPD exacerbation Status: Acute - Assessment and Plan (Free Text) Assessment: (1) DVT prophylaxis Assessment and Plan: scd and aehose lovenox Status: Acute (2) Altered mental status Assessment and Plan: likely dmentia related neuro incr depakote as level not therapeutic psych for geropsych admission Status: Acute (3) CHF exacerbation Assessment and Plan: cont meds, cardio Status: Acute (4) COPD exacerbation Assessment and Plan: cont home meds Status: Acute
[2016-12-12 08:12] LABS: BASO # 0.1 K/uL (0.0-0.2); BASO % 0.6 % (0.0-2.0); EOS # 0.3 K/uL (0.0-0.7); EOS % 3.6 % (0.0-4.0); HEMATOCRIT 38.3 % (35.0-51.0); LYMPH # 1.1 K/uL (1.0-4.3); LYMPH % 13.5 % (20.0-40.0); MEAN CORPUSCULAR HEMOGLOBIN 31.9 pg (27.0-31.0); MEAN CORPUSCULAR HGB CONC 32.8 g/dL (33.0-37.0); MEAN PLATELET VOLUME 9.9 fl (7.2-11.7); MONO % 12.2 % (0.0-10.0); NEUT # 5.7 K/uL (1.8-7.0); NEUT % 70.1 % (50.0-75.0); RED CELL DISTRIBUTION WIDTH 13.2 % (11.5-14.5); WHITE BLOOD COUNT 8.2 K/uL (4.8-10.8)
[2016-12-12 08:26] LABS: ALKALINE PHOSPHATASE 87 U/L (38-126); ALT/SGPT 65 U/L (21-72); AST/SGOT 35 U/L (17-59); BILIRUBIN,TOTAL 0.9 mg/dl (0.2-1.3); BLOOD UREA NITROGEN 10 mg/dl (9-20); CALCIUM 8.3 mg/dL (8.4-10.2); CARBON DIOXIDE 31 mmol/L (22-30); CHLORIDE 103 mmol/L (98-107); GFR AFRICAN-AMERICAN > 60; GLUCOSE,RANDOM 116 mg/dL (75-110); POTASSIUM 3.9 MMOL/L (3.6-5.0); SODIUM 144 mmol/l (132-148); TOTAL PROTEIN 5.7 G/DL (6.3-8.2)
[2016-12-12] MEDS: Silver Sulfadiazine 1% Cream (20 gm) TOP SCH ×2 (09:00→17:00)
[2016-12-12] MEDS: Potassium Chloride 20 mEq ER Tab PO SCH (09:38)
[2016-12-12] MEDS: Enoxaparin 40 mg Syringe SC SCH (09:40)
[2016-12-12] MEDS: Bacitracin OINT 15GM TOP SCH ×2 (09:40→21:06)
[2016-12-12] MEDS: Divalproex 125 mg Sprinkle Capsule PO SCH ×2 (09:41→16:19)
[2016-12-12] MEDS: Vitamins A & D Oint UD Foilpak TOP SCH (09:43)
--- NOTE | 2016-12-12 12:20 | RAD ---
HISTORY: Cough COMPARISON: 12/09/2016 FINDINGS: LUNGS: The lungs are clear. PLEURA: No significant pleural effusion identified, no pneumothorax apparent. CARDIOVASCULAR: Normal. OSSEOUS STRUCTURES: No significant abnormalities. VISUALIZED UPPER ABDOMEN: Normal. OTHER FINDINGS: There is chronic elevation of the right hemidiaphragm. IMPRESSION: No active pulmonary disease.
[2016-12-12] MEDS ORDERED: Albuterol-Ipratrop 3 mg / 0.5 (3 ml) UD INH STA (17:00)
[2016-12-13] MEDS: Albuterol-Ipratrop 3 mg / 0.5 (3 ml) UD INH PRN ×2 (02:00→18:05)
--- NOTE | 2016-12-13 07:08 | CP.PCM.PN ---
Subjective - Date & Time of Evaluation Date of Evaluation: 12/13/16 Time of Evaluation: 07:08 - Subjective Subjective: pt calmer, still on 1:1 requires coaching for swallowing food/pills pt/ot/st consults pending cleared by cardio/neuro psych consult just chanign meds around not for geropsych admission. no distress am labs pending no s/s infection at htis time. Objective - Vital Signs/Intake and Output Vital Signs (last 24 hours): Temp Pulse Resp BP Pulse Ox 98.4 F 80 21 105/70 97 12/12/16 20:48 12/12/16 21:06 12/12/16 20:48 12/12/16 21:06 12/12/16 20:48 - Medications Medications: Current Medications Acetaminophen (Tylenol 325mg Tab) 650 mg PO Q4 PRN PRN Reason: Pain, Mild (1-3) Albuterol/Ipratropium (Duoneb 3 Mg/0.5 Mg (3 Ml) Ud) 3 ml INH RQ4 PRN PRN Reason: Shortness of Breath Last Admin: 12/13/16 02:00 Dose: 3 ml Atorvastatin Calcium (Lipitor) 20 mg PO HS [facility] Last Admin: 12/12/16 21:05 Dose: 20 mg Bacitracin (Bacitracin Oint) 1 applic TOP Q12 [facility] Last Admin: 12/12/16 21:06 Dose: 1 applic Benzocaine/Menthol (Cepacol Sore Throat) 1 darrion PO DAILY PRN PRN Reason: Sore Throat Carvedilol (Coreg) 6.25 mg PO Q12 [facility] Last Admin: 12/12/16 21:06 Dose: 6.25 mg Divalproex Sodium (Depakote Sprinkles) 250 mg PO BID [facility] Last Admin: 12/12/16 16:19 Dose: 250 mg Enoxaparin Sodium (Lovenox) 40 mg SC DAILY [facility] PRN Reason: Protocol Last Admin: 12/12/16 09:40 Dose: 40 mg Famotidine (Pepcid) 20 mg PO BID [facility] Last Admin: 12/12/16 16:19 Dose: 20 mg Furosemide (Lasix) 20 mg PO DAILY [facility] Last Admin: 12/12/16 09:39 Dose: 20 mg Gabapentin (Neurontin) 300 mg PO BID [facility] Last Admin: 12/12/16 16:19 Dose: 300 mg Lorazepam (Ativan) 0.5 mg PO Q8 PRN PRN Reason: Agitation Lorazepam (Ativan) 0.5 mg IVP Q8 PRN PRN Reason: Agitation Last Admin: 12/11/16 19:58 Dose: 0.5 mg Magnesium Hydroxide (Milk Of Magnesia) 30 ml PO Q4 PRN PRN Reason: Heartburn Nystatin (Nystop Topical Powder) 1 applic TOP DAILY [facility] Last Admin: 12/12/16 09:00 Dose: 1 applic Potassium Chloride (K-Dur 20 Meq Er Tab) 20 meq PO DAILY [facility] Last Admin: 12/12/16 09:38 Dose: 20 meq Risperidone (Risperdal Tab) 0.5 mg PO Q6 PRN PRN Reason: Agitation Last Admin: 12/11/16 16:33 Dose: 0.5 mg Sennosides (Senokot Tab) 8.6 mg PO DAILY PRN PRN Reason: Constipation Silver Sulfadiazine (Silvadene 1% 20 Gm) 1 ea TOP BID [facility] Last Admin: 12/12/16 17:00 Dose: 1 % Sitagliptin Phosphate (Januvia) 100 mg PO DAILY [facility] Last Admin: 12/12/16 09:38 Dose: 100 mg Temazepam (Restoril) 7.5 mg PO HS PRN PRN Reason: Insomnia Tramadol HCl (Ultram) 50 mg PO Q6 PRN PRN Reason: Pain, moderate (4-7) Vitamin A (Vitamin A & D Oint Ud Foilpak) 1 ea TOP DAILY [facility] Last Admin: 12/12/16 09:43 Dose: 1 ea - Labs Labs: 12/12/16 07:45 12/12/16 07:45 PT 11.8 SECONDS (9.6-11.2) H 12/09/16 20:50 INR 1.13 (0.92-1.08) H 12/09/16 20:50 APTT 25.1 SECONDS (23.3-32.5) 12/09/16 20:50 - Constitutional Appears: Non-toxic, No Acute Distress, Agitated, Confused - Head Exam Head Exam: ATRAUMATIC, NORMAL INSPECTION, NORMOCEPHALIC - Eye Exam Eye Exam: EOMI, Normal appearance, PERRL Pupil Exam: NORMAL ACCOMODATION, PERRL - ENT Exam ENT Exam: Mucous Membranes Moist, Normal Exam - Neck Exam Neck Exam: Full ROM, Normal Inspection. absent: Lymphadenopathy - Respiratory Exam Respiratory Exam: Clear to Ausculation Bilateral, NORMAL BREATHING PATTERN - Cardiovascular Exam Cardiovascular Exam: REGULAR RHYTHM, +S1, +S2. absent: Murmur - GI/Abdominal Exam GI & Abdominal Exam: Soft, Normal Bowel Sounds. absent: Tenderness - Extremities Exam Extremities Exam: Full ROM, Normal Capillary Refill, Normal Inspection. absent : Joint Swelling, Pedal Edema - Back Exam Back Exam: NORMAL INSPECTION - Neurological Exam Neurological Exam: Abnormal Gait, Altered, Awake, CN II-XII Intact - Psychiatric Exam Psychiatric exam: Normal Affect, Normal Mood - Skin Skin Exam: Dry, Intact, Normal Color, Warm Assessment and Plan (1) DVT prophylaxis Status: Acute (2) Altered mental status Status: Acute (3) CHF exacerbation Status: Acute (4) COPD exacerbation Status: Acute - Assessment and Plan (Free Text) Assessment: (1) DVT prophylaxis Assessment and Plan: scd and aehose lovenox Status: Acute (2) Altered mental status Assessment and Plan: likely dmentia related neuro incr depakote as level not therapeutic psych for geropsych admission-?? Status: Acute (3) CHF exacerbation Assessment and Plan: cont meds, cardio Status: Acute (4) COPD exacerbation Assessment and Plan: cont home meds Status: Acute ?? dc back to [facility] vs home w/ family
[2016-12-13 07:53] LABS: BASO # 0.1 K/uL (0.0-0.2); BASO % 0.6 % (0.0-2.0); EOS # 0.2 K/uL (0.0-0.7); EOS % 2.7 % (0.0-4.0); HEMATOCRIT 39.2 % (35.0-51.0); LYMPH # 1.1 K/uL (1.0-4.3); MEAN CELL VOLUME 95.1 fl (80.0-94.0); MEAN CORPUSCULAR HEMOGLOBIN 32.1 pg (27.0-31.0); MEAN CORPUSCULAR HGB CONC 33.8 g/dL (33.0-37.0); MEAN PLATELET VOLUME 10.2 fl (7.2-11.7); MONO # 1.1 K/uL (0.0-0.8); MONO % 12.8 % (0.0-10.0); NEUT # 5.9 K/uL (1.8-7.0); NEUT % 70.9 % (50.0-75.0); NRBC % 0.1 % (0.0-0.0); RED CELL DISTRIBUTION WIDTH 12.8 % (11.5-14.5); WHITE BLOOD COUNT 8.3 K/uL (4.8-10.8)
[2016-12-13 08:09] LABS: ALKALINE PHOSPHATASE 93 U/L (38-126); ALT/SGPT 57 U/L (21-72); AST/SGOT 31 U/L (17-59); BILIRUBIN,TOTAL 0.9 mg/dl (0.2-1.3); BLOOD UREA NITROGEN 14 mg/dl (9-20); CALCIUM 8.8 mg/dL (8.4-10.2); CARBON DIOXIDE 32 mmol/L (22-30); CHLORIDE 103 mmol/L (98-107); GFR AFRICAN-AMERICAN > 60; GLUCOSE,RANDOM 119 mg/dL (75-110); POTASSIUM 3.8 MMOL/L (3.6-5.0); SODIUM 144 mmol/l (132-148); TOTAL PROTEIN 5.6 G/DL (6.3-8.2)
--- NOTE | 2016-12-13 10:43 | CARD ---
APPROVED REPORT EXAM: Two-dimensional and M-mode echocardiogram with Doppler and color Doppler. Other Information Quality : FairRhythm : NSR Technically limited study due to body habitus.Pt agitated Mitral Valve E/A ratio0.0 TDI E/Lateral E'0.0E/Medial E'0.0 LEFT VENTRICLE The left ventricle is normal size. There is borderline concentric left ventricular hypertrophy. The left ventricular function is normal. The left ventricular ejection fraction is within the normal range. (LVEF was probably normal) LV segmental wall motion appeard normal.. Transmitral Doppler flow pattern is Grade I-abnormal relaxation pattern. RIGHT VENTRICLE The right ventricle is normal size. The right ventricular systolic function is normal. ATRIA The left atrium is borderline dilated. The right atrium size is normal. AORTIC VALVE The aortic valve is normal in structure and function. No aortic regurgitation is present. There is no aortic valvular stenosis. MITRAL VALVE The mitral valve is normal in structure. There is no evidence of mitral valve prolapse. There is no mitral valve stenosis. Mitral regurgitation is moderate. TRICUSPID VALVE The tricuspid valve is normal in structure and function. There is no tricuspid valve regurgitation noted. PULMONIC VALVE The pulmonic valve is not well visualized. There is no pulmonic valvular regurgitation. GREAT VESSELS The aortic root is normal in size. Due to poor image quality, the IVC could not be assessed. PERICARDIAL EFFUSION The pericardium appears normal. <Conclusion> Extremely poor images due to poor echo window and an agitated pt. Limited study. M-mode images could not be obtained. Particularly, inferior LV wall could not be visualised. The left ventricle is normal size. There is borderline concentric left ventricular hypertrophy. LV segmental wall which could be visualied appeared to move normally. The left ventricular function appears to be normal. The left ventricular ejection fraction is within the normal range. Transmitral Doppler flow pattern is Grade I-abnormal relaxation pattern. Mitral regurgitation is moderate.
[2016-12-13] MEDS: Bacitracin OINT 15GM TOP SCH ×2 (10:57→20:48)
[2016-12-13] MEDS: Enoxaparin 40 mg Syringe SC SCH (10:57)
[2016-12-13] MEDS: Divalproex 125 mg Sprinkle Capsule PO SCH ×2 (10:59→16:55)
[2016-12-13] MEDS: Vitamins A & D Oint UD Foilpak TOP SCH (10:59)
[2016-12-13] MEDS: Potassium Chloride 20 mEq ER Tab PO SCH (10:59)
[2016-12-13] MEDS: Silver Sulfadiazine 1% Cream (20 gm) TOP SCH ×2 (11:00→17:02)
[2016-12-14 08:26] LABS: BASO % 0.5 % (0.0-2.0); EOS # 0.2 K/uL (0.0-0.7); EOS % 3.3 % (0.0-4.0); HEMATOCRIT 39.3 % (35.0-51.0); MEAN CELL VOLUME 95.4 fl (80.0-94.0); MEAN CORPUSCULAR HEMOGLOBIN 31.9 pg (27.0-31.0); MEAN CORPUSCULAR HGB CONC 33.4 g/dL (33.0-37.0); MEAN PLATELET VOLUME 9.8 fl (7.2-11.7); MONO # 0.8 K/uL (0.0-0.8); MONO % 14.1 % (0.0-10.0); NEUT # 3.9 K/uL (1.8-7.0); NEUT % 65.1 % (50.0-75.0); NRBC % 0.1 % (0.0-0.0)
[2016-12-14 08:41] LABS: ALKALINE PHOSPHATASE 95 U/L (38-126); ALT/SGPT 48 U/L (21-72); AST/SGOT 26 U/L (17-59); BILIRUBIN,TOTAL 0.8 mg/dl (0.2-1.3); BLOOD UREA NITROGEN 12 mg/dl (9-20); CALCIUM 8.7 mg/dL (8.4-10.2); CARBON DIOXIDE 31 mmol/L (22-30); CHLORIDE 105 mmol/L (98-107); GFR AFRICAN-AMERICAN > 60; GLUCOSE,RANDOM 125 mg/dL (75-110); POTASSIUM 3.3 MMOL/L (3.6-5.0); SODIUM 146 mmol/l (132-148); TOTAL PROTEIN 5.5 G/DL (6.3-8.2)
[2016-12-14] MEDS ORDERED: Potassium Chloride 20 mEq ER Tab PO ONE (09:18)
--- NOTE | 2016-12-14 09:19 | CP.PCM.PN ---
Subjective - Date & Time of Evaluation Date of Evaluation: 12/14/16 Time of Evaluation: 09:19 - Subjective Subjective: pt more calm today. not agitated at present. no f/c, n/v/d. bw noted. k low peding sw and psych dispo Objective - Vital Signs/Intake and Output Vital Signs (last 24 hours): Temp Pulse Resp BP Pulse Ox 98.0 F 82 20 143/82 95 12/14/16 08:02 12/14/16 08:02 12/14/16 08:02 12/14/16 08:02 12/14/16 08:02 - Medications Medications: Current Medications Acetaminophen (Tylenol 325mg Tab) 650 mg PO Q4 PRN PRN Reason: Pain, Mild (1-3) Albuterol/Ipratropium (Duoneb 3 Mg/0.5 Mg (3 Ml) Ud) 3 ml INH RQ4 PRN PRN Reason: Shortness of Breath Last Admin: 12/13/16 18:05 Dose: 3 ml Atorvastatin Calcium (Lipitor) 20 mg PO HS [facility] Last Admin: 12/13/16 21:00 Dose: 20 mg Bacitracin (Bacitracin Oint) 1 applic TOP Q12 [facility] Last Admin: 12/13/16 20:48 Dose: 1 applic Benzocaine/Menthol (Cepacol Sore Throat) 1 darrion PO DAILY PRN PRN Reason: Sore Throat Carvedilol (Coreg) 6.25 mg PO Q12 [facility] Last Admin: 12/13/16 20:46 Dose: 6.25 mg Divalproex Sodium (Depakote Sprinkles) 250 mg PO BID [facility] Last Admin: 12/13/16 16:55 Dose: Not Given Enoxaparin Sodium (Lovenox) 40 mg SC DAILY [facility] PRN Reason: Protocol Last Admin: 12/13/16 10:57 Dose: 40 mg Famotidine (Pepcid) 20 mg PO BID [facility] Last Admin: 12/13/16 16:54 Dose: Not Given Furosemide (Lasix) 20 mg PO DAILY [facility] Last Admin: 12/13/16 10:59 Dose: 20 mg Gabapentin (Neurontin) 300 mg PO BID [facility] Last Admin: 12/13/16 17:02 Dose: Not Given Lorazepam (Ativan) 0.5 mg PO Q8 PRN PRN Reason: Agitation Lorazepam (Ativan) 0.5 mg IVP Q8 PRN PRN Reason: Agitation Last Admin: 12/11/16 19:58 Dose: 0.5 mg Magnesium Hydroxide (Milk Of Magnesia) 30 ml PO Q4 PRN PRN Reason: Heartburn Nystatin (Nystop Topical Powder) 1 applic TOP DAILY [facility] Last Admin: 12/13/16 11:00 Dose: 1 applic Potassium Chloride (K-Dur 20 Meq Er Tab) 20 meq PO DAILY [facility] Last Admin: 12/13/16 10:59 Dose: 20 meq Risperidone (Risperdal Tab) 0.5 mg PO Q6 PRN PRN Reason: Agitation Last Admin: 12/13/16 20:44 Dose: 0.5 mg Sennosides (Senokot Tab) 8.6 mg PO DAILY PRN PRN Reason: Constipation Silver Sulfadiazine (Silvadene 1% 20 Gm) 1 ea TOP BID [facility] Last Admin: 12/13/16 17:02 Dose: 1 % Sitagliptin Phosphate (Januvia) 100 mg PO DAILY [facility] Last Admin: 12/13/16 10:59 Dose: 100 mg Temazepam (Restoril) 7.5 mg PO HS PRN PRN Reason: Insomnia Vitamin A (Vitamin A & D Oint Ud Foilpak) 1 ea TOP DAILY [facility] Last Admin: 12/13/16 10:59 Dose: 1 ea - Labs Labs: 12/14/16 06:30 12/14/16 06:00 PT 11.8 SECONDS (9.6-11.2) H 12/09/16 20:50 INR 1.13 (0.92-1.08) H 12/09/16 20:50 APTT 25.1 SECONDS (23.3-32.5) 12/09/16 20:50 - Constitutional Appears: Well, Non-toxic, No Acute Distress - Head Exam Head Exam: ATRAUMATIC, NORMAL INSPECTION, NORMOCEPHALIC - Eye Exam Eye Exam: EOMI, Normal appearance, PERRL Pupil Exam: NORMAL ACCOMODATION, PERRL - ENT Exam ENT Exam: Mucous Membranes Moist, Normal Exam - Neck Exam Neck Exam: Full ROM, Normal Inspection. absent: Lymphadenopathy - Respiratory Exam Respiratory Exam: Clear to Ausculation Bilateral, NORMAL BREATHING PATTERN - Cardiovascular Exam Cardiovascular Exam: REGULAR RHYTHM, RRR, +S1, +S2. absent: Murmur - GI/Abdominal Exam GI & Abdominal Exam: Soft, Normal Bowel Sounds. absent: Tenderness - Extremities Exam Extremities Exam: Full ROM, Normal Capillary Refill, Normal Inspection. absent : Joint Swelling, Pedal Edema - Back Exam Back Exam: NORMAL INSPECTION - Neurological Exam Neurological Exam: Alert, Awake, CN II-XII Intact, Normal Gait, Oriented x3 - Psychiatric Exam Psychiatric exam: Normal Affect, Normal Mood - Skin Skin Exam: Dry, Intact, Normal Color, Warm Assessment and Plan (1) DVT prophylaxis Status: Acute (2) Altered mental status Status: Acute (3) CHF exacerbation Status: Acute (4) COPD exacerbation Status: Acute - Assessment and Plan (Free Text) Assessment: (1) DVT prophylaxis Assessment and Plan: scd and aehose lovenox Status: Acute (2) Altered mental status Assessment and Plan: likely dmentia related neuro incr depakote as level not therapeutic psych for geropsych admission-?? Status: Acute (3) CHF exacerbation Assessment and Plan: cont meds, cardio Status: Acute (4) COPD exacerbation Assessment and Plan: cont home meds Status: Acute ?? dc back to [facility] vs home w/ family depokot elevel noted. cont dosing at present.
[2016-12-14] MEDS: Vitamins A & D Oint UD Foilpak TOP SCH (09:44)
[2016-12-14] MEDS: Potassium Chloride 20 mEq ER Tab PO SCH (09:45)
[2016-12-14] MEDS: Enoxaparin 40 mg Syringe SC SCH (09:48)
[2016-12-14] MEDS: Divalproex 125 mg Sprinkle Capsule PO SCH ×2 (09:48→17:38)
[2016-12-14] MEDS: Silver Sulfadiazine 1% Cream (20 gm) TOP SCH ×2 (09:49→17:38)
[2016-12-14] MEDS: Bacitracin OINT 15GM TOP SCH ×2 (10:00→20:54)
[2016-12-15 07:15] LABS: BASO % 0.7 % (0.0-2.0); EOS # 0.3 K/uL (0.0-0.7); HEMATOCRIT 43.4 % (35.0-51.0); LYMPH # 1.3 K/uL (1.0-4.3); LYMPH % 20.2 % (20.0-40.0); MEAN CELL VOLUME 95.7 fl (80.0-94.0); MEAN CORPUSCULAR HEMOGLOBIN 31.1 pg (27.0-31.0); MEAN CORPUSCULAR HGB CONC 32.5 g/dL (33.0-37.0); MEAN PLATELET VOLUME 9.8 fl (7.2-11.7); MONO # 0.9 K/uL (0.0-0.8); MONO % 12.9 % (0.0-10.0); NEUT # 4.1 K/uL (1.8-7.0); NEUT % 62.2 % (50.0-75.0); NRBC % 0.1 % (0.0-0.0); RED CELL DISTRIBUTION WIDTH 13.2 % (11.5-14.5); WHITE BLOOD COUNT 6.6 K/uL (4.8-10.8)
--- NOTE | 2016-12-15 07:18 | CP.PCM.PN ---
Subjective - Date & Time of Evaluation Date of Evaluation: 12/15/16 Time of Evaluation: 07:18 - Subjective Subjective: pt remains as assessed. sleeping calm at present. no complaitns/distress for dispo today still on 1:1 Objective - Vital Signs/Intake and Output Vital Signs (last 24 hours): Temp Pulse Resp BP Pulse Ox 97.5 F L 80 20 129/71 97 12/14/16 17:48 12/14/16 20:54 12/14/16 17:48 12/14/16 20:54 12/14/16 17:48 - Medications Medications: Current Medications Acetaminophen (Tylenol 325mg Tab) 650 mg PO Q4 PRN PRN Reason: Pain, Mild (1-3) Albuterol/Ipratropium (Duoneb 3 Mg/0.5 Mg (3 Ml) Ud) 3 ml INH RQ4 PRN PRN Reason: Shortness of Breath Last Admin: 12/13/16 18:05 Dose: 3 ml Atorvastatin Calcium (Lipitor) 20 mg PO HS [facility] Last Admin: 12/14/16 21:02 Dose: 20 mg Bacitracin (Bacitracin Oint) 1 applic TOP Q12 [facility] Last Admin: 12/14/16 20:54 Dose: 1 applic Benzocaine/Menthol (Cepacol Sore Throat) 1 darrion PO DAILY PRN PRN Reason: Sore Throat Carvedilol (Coreg) 6.25 mg PO Q12 [facility] Last Admin: 12/14/16 20:54 Dose: 6.25 mg Divalproex Sodium (Depakote Sprinkles) 250 mg PO BID [facility] Last Admin: 12/14/16 17:38 Dose: 250 mg Enoxaparin Sodium (Lovenox) 40 mg SC DAILY [facility] PRN Reason: Protocol Last Admin: 12/14/16 09:48 Dose: 40 mg Famotidine (Pepcid) 20 mg PO BID [facility] Last Admin: 12/14/16 17:38 Dose: 20 mg Furosemide (Lasix) 20 mg PO DAILY [facility] Last Admin: 12/14/16 09:45 Dose: 20 mg Gabapentin (Neurontin) 300 mg PO BID [facility] Last Admin: 12/14/16 17:38 Dose: 300 mg Lorazepam (Ativan) 0.5 mg PO Q8 PRN PRN Reason: Agitation Lorazepam (Ativan) 0.5 mg IVP Q8 PRN PRN Reason: Agitation Last Admin: 12/11/16 19:58 Dose: 0.5 mg Magnesium Hydroxide (Milk Of Magnesia) 30 ml PO Q4 PRN PRN Reason: Heartburn Nystatin (Nystop Topical Powder) 1 applic TOP DAILY [facility] Last Admin: 12/14/16 09:49 Dose: 1 applic Potassium Chloride (K-Dur 20 Meq Er Tab) 20 meq PO DAILY [facility] Last Admin: 12/14/16 09:45 Dose: 20 meq Risperidone (Risperdal Tab) 0.5 mg PO Q6 PRN PRN Reason: Agitation Last Admin: 12/14/16 20:54 Dose: 0.5 mg Sennosides (Senokot Tab) 8.6 mg PO DAILY PRN PRN Reason: Constipation Silver Sulfadiazine (Silvadene 1% 20 Gm) 1 ea TOP BID [facility] Last Admin: 12/14/16 17:38 Dose: 1 % Sitagliptin Phosphate (Januvia) 100 mg PO DAILY [facility] Last Admin: 12/14/16 09:45 Dose: 100 mg Temazepam (Restoril) 7.5 mg PO HS PRN PRN Reason: Insomnia Vitamin A (Vitamin A & D Oint Ud Foilpak) 1 ea TOP DAILY [facility] Last Admin: 12/14/16 09:44 Dose: 1 ea - Labs Labs: 12/14/16 06:30 12/14/16 06:00 PT 11.8 SECONDS (9.6-11.2) H 12/09/16 20:50 INR 1.13 (0.92-1.08) H 12/09/16 20:50 APTT 25.1 SECONDS (23.3-32.5) 12/09/16 20:50 - Constitutional Appears: Well, Non-toxic, No Acute Distress, Confused - Head Exam Head Exam: ATRAUMATIC, NORMAL INSPECTION, NORMOCEPHALIC - Eye Exam Eye Exam: EOMI, Normal appearance, PERRL Pupil Exam: NORMAL ACCOMODATION, PERRL - ENT Exam ENT Exam: Mucous Membranes Moist, Normal Exam - Neck Exam Neck Exam: Full ROM, Normal Inspection. absent: Lymphadenopathy - Respiratory Exam Respiratory Exam: Clear to Ausculation Bilateral, NORMAL BREATHING PATTERN - Cardiovascular Exam Cardiovascular Exam: REGULAR RHYTHM, RRR, +S1, +S2. absent: Murmur - GI/Abdominal Exam GI & Abdominal Exam: Soft, Normal Bowel Sounds. absent: Tenderness - Extremities Exam Extremities Exam: Full ROM, Normal Capillary Refill, Normal Inspection. absent : Joint Swelling, Pedal Edema - Back Exam Back Exam: NORMAL INSPECTION - Neurological Exam Neurological Exam: Abnormal Gait, Alert, Altered, Awake, CN II-XII Intact - Psychiatric Exam Psychiatric exam: Normal Affect, Normal Mood - Skin Skin Exam: Dry, Intact, Normal Color, Warm Assessment and Plan (1) DVT prophylaxis Status: Acute (2) Altered mental status Status: Acute (3) CHF exacerbation Status: Acute (4) COPD exacerbation Status: Acute - Assessment and Plan (Free Text) Assessment: (1) DVT prophylaxis Assessment and Plan: scd and aehose lovenox Status: Acute (2) Altered mental status Assessment and Plan: likely dmentia related neuro incr depakote as level not therapeutic psych for geropsych admission-?? Status: Acute (3) CHF exacerbation Assessment and Plan: cont meds, cardio Status: Acute (4) COPD exacerbation Assessment and Plan: cont home meds Status: Acute ?? dc back to [facility] vs home w/ family depokot elevel noted. cont dosing at present. pending am labs, pending dispo, cont 1:!
[2016-12-15 07:53] LABS: ALKALINE PHOSPHATASE 103 U/L (38-126); ALT/SGPT 48 U/L (21-72); AST/SGOT 32 U/L (17-59); BILIRUBIN,TOTAL 0.7 mg/dl (0.2-1.3); BLOOD UREA NITROGEN 12 mg/dl (9-20); CARBON DIOXIDE 30 mmol/L (22-30); CHLORIDE 106 mmol/L (98-107); GFR AFRICAN-AMERICAN > 60; GLUCOSE,RANDOM 130 mg/dL (75-110); POTASSIUM 4.1 MMOL/L (3.6-5.0); SODIUM 146 mmol/l (132-148); TOTAL PROTEIN 6.1 G/DL (6.3-8.2)
[2016-12-15] MEDS: Potassium Chloride 20 mEq ER Tab PO SCH (08:59)
[2016-12-15] MEDS: Enoxaparin 40 mg Syringe SC SCH (08:59)
[2016-12-15] MEDS: Bacitracin OINT 15GM TOP SCH ×2 (09:02→21:29)
[2016-12-15] MEDS: Divalproex 125 mg Sprinkle Capsule PO SCH ×2 (09:02→17:47)
[2016-12-15] MEDS: Vitamins A & D Oint UD Foilpak TOP SCH (09:03)
[2016-12-15] MEDS: Silver Sulfadiazine 1% Cream (20 gm) TOP SCH ×2 (09:04→17:50)
[2016-12-15] MEDS: Albuterol-Ipratrop 3 mg / 0.5 (3 ml) UD INH PRN ×2 (09:36→14:24)
[2016-12-15 12:21] LABS: ABG ALLEN TEST YES; ARTERIAL BLOOD GAS HCO3 31.3 mmol/L (21-28); ARTERIAL BLOOD GAS O2 CAPACITY 17.9 mL/dL (16-24); ARTERIAL BLOOD GAS O2 CONTENT 17.7 ML/dL (15-23); ARTERIAL BLOOD GAS PH 7.35 (7.35-7.45); ARTERIAL BLOOD GAS PO2 84 mm/Hg (80-100); ARTERIAL BLOOD HGB O2 SAT 93.8 % (95.0-98.0); HHB 0.9 % (0.0-5.0); METHEMOGLOBIN 2.3 % (0.0-3.0)
[2016-12-15] MEDS ORDERED: Dextrose 5%/0.45% NS 1,000 ML IV SCH (20:45)
--- NOTE | 2016-12-16 07:23 | CP.PCM.PN ---
Subjective - Date & Time of Evaluation Date of Evaluation: 12/16/16 Time of Evaluation: 07:23 - Subjective Subjective: pt in no distress. less agitated/combative. no f/c, n/v/d. for dispo today Objective - Vital Signs/Intake and Output Vital Signs (last 24 hours): Temp Pulse Resp BP Pulse Ox 98.7 F 86 15 138/65 98 12/15/16 21:26 12/16/16 04:58 12/15/16 21:26 12/15/16 21:26 12/15/16 21:26 - Medications Medications: Current Medications Acetaminophen (Tylenol 325mg Tab) 650 mg PO Q4 PRN PRN Reason: Pain, Mild (1-3) Albuterol/Ipratropium (Duoneb 3 Mg/0.5 Mg (3 Ml) Ud) 3 ml INH RQ4 PRN PRN Reason: Shortness of Breath Last Admin: 12/15/16 14:24 Dose: 3 ml Atorvastatin Calcium (Lipitor) 20 mg PO HS [facility] Last Admin: 12/15/16 21:14 Dose: 20 mg Bacitracin (Bacitracin Oint) 1 applic TOP Q12 [facility] Last Admin: 12/15/16 21:29 Dose: 1 applic Benzocaine/Menthol (Cepacol Sore Throat) 1 darrion PO DAILY PRN PRN Reason: Sore Throat Carvedilol (Coreg) 6.25 mg PO Q12 [facility] Last Admin: 12/15/16 21:14 Dose: 6.25 mg Divalproex Sodium (Depakote Sprinkles) 250 mg PO BID [facility] Last Admin: 12/15/16 17:47 Dose: Not Given Enoxaparin Sodium (Lovenox) 40 mg SC DAILY [facility] PRN Reason: Protocol Last Admin: 12/15/16 08:59 Dose: 40 mg Famotidine (Pepcid) 20 mg PO BID [facility] Last Admin: 12/15/16 17:48 Dose: Not Given Fluticasone Propionate (Flonase) 1 spr ABBY BID [facility] Last Admin: 12/15/16 17:47 Dose: Not Given Furosemide (Lasix) 20 mg PO DAILY [facility] Last Admin: 12/15/16 09:00 Dose: 20 mg Gabapentin (Neurontin) 300 mg PO BID [facility] Last Admin: 12/15/16 17:48 Dose: Not Given Dextrose/Sodium Chloride (Dextrose 5%/0.45% Ns 1000 Ml) 1,000 mls @ 80 mls/hr IV .[id number] [facility] Stop: 12/16/16 20:33 Last Admin: 12/15/16 22:05 Dose: 80 mls/hr Lorazepam (Ativan) 0.5 mg IVP Q8 PRN PRN Reason: Agitation Last Admin: 12/11/16 19:58 Dose: 0.5 mg Magnesium Hydroxide (Milk Of Magnesia) 30 ml PO Q4 PRN PRN Reason: Heartburn Nystatin (Nystop Topical Powder) 1 applic TOP DAILY [facility] Last Admin: 12/15/16 09:03 Dose: 1 applic Potassium Chloride (K-Dur 20 Meq Er Tab) 20 meq PO DAILY [facility] Last Admin: 12/15/16 08:59 Dose: 20 meq Risperidone (Risperdal Tab) 0.5 mg PO Q6 PRN PRN Reason: Agitation Last Admin: 12/15/16 08:59 Dose: 0.5 mg Sennosides (Senokot Tab) 8.6 mg PO DAILY PRN PRN Reason: Constipation Silver Sulfadiazine (Silvadene 1% 20 Gm) 1 ea TOP BID [facility] Last Admin: 12/15/16 17:50 Dose: 1 % Sitagliptin Phosphate (Januvia) 100 mg PO DAILY [facility] Last Admin: 12/15/16 09:03 Dose: 100 mg Temazepam (Restoril) 7.5 mg PO HS PRN PRN Reason: Insomnia Vitamin A (Vitamin A & D Oint Ud Foilpak) 1 ea TOP DAILY [facility] Last Admin: 12/15/16 09:03 Dose: 1 ea - Labs Labs: 12/15/16 06:20 12/15/16 06:20 PT 11.8 SECONDS (9.6-11.2) H 12/09/16 20:50 INR 1.13 (0.92-1.08) H 12/09/16 20:50 APTT 25.1 SECONDS (23.3-32.5) 12/09/16 20:50 - Constitutional Appears: Well, Non-toxic, No Acute Distress - Head Exam Head Exam: ATRAUMATIC, NORMAL INSPECTION, NORMOCEPHALIC - Eye Exam Eye Exam: EOMI, Normal appearance, PERRL Pupil Exam: NORMAL ACCOMODATION, PERRL - ENT Exam ENT Exam: Mucous Membranes Moist, Normal Exam - Neck Exam Neck Exam: Full ROM, Normal Inspection. absent: Lymphadenopathy - Respiratory Exam Respiratory Exam: Clear to Ausculation Bilateral, NORMAL BREATHING PATTERN - Cardiovascular Exam Cardiovascular Exam: REGULAR RHYTHM, RRR, +S1, +S2. absent: Murmur - GI/Abdominal Exam GI & Abdominal Exam: Soft, Normal Bowel Sounds. absent: Tenderness - Extremities Exam Extremities Exam: Full ROM, Normal Capillary Refill, Normal Inspection. absent : Joint Swelling, Pedal Edema - Back Exam Back Exam: NORMAL INSPECTION - Neurological Exam Neurological Exam: Alert, Awake, CN II-XII Intact, Normal Gait, Oriented x3 - Psychiatric Exam Psychiatric exam: Normal Affect, Normal Mood - Skin Skin Exam: Dry, Intact, Normal Color, Warm Assessment and Plan (1) DVT prophylaxis Status: Acute (2) Altered mental status Status: Acute (3) CHF exacerbation Status: Acute (4) COPD exacerbation Status: Acute - Assessment and Plan (Free Text) Assessment: (1) DVT prophylaxis Assessment and Plan: scd and aehose lovenox Status: Acute (2) Altered mental status Assessment and Plan: likely dmentia related neuro incr depakote as level not therapeutic psych for geropsych admission-?? Status: Acute (3) CHF exacerbation Assessment and Plan: cont meds, cardio Status: Acute (4) COPD exacerbation Assessment and Plan: cont home meds Status: Acute ?? dc back to [facility] vs home w/ family depokot elevel noted. cont dosing at present. pending am labs, pending dispo, cont 1:!
[2016-12-16] MEDS: Albuterol-Ipratrop 3 mg / 0.5 (3 ml) UD INH PRN (07:47)
[2016-12-16 08:02] LABS: BASO % 0.5 % (0.0-2.0); EOS # 0.2 K/uL (0.0-0.7); EOS % 3.4 % (0.0-4.0); HEMATOCRIT 41.6 % (35.0-51.0); LYMPH # 1.2 K/uL (1.0-4.3); LYMPH % 17.6 % (20.0-40.0); MEAN CELL VOLUME 96.3 fl (80.0-94.0); MEAN CORPUSCULAR HEMOGLOBIN 31.7 pg (27.0-31.0); MEAN PLATELET VOLUME 9.4 fl (7.2-11.7); MONO # 0.9 K/uL (0.0-0.8); MONO % 12.4 % (0.0-10.0); NEUT # 4.6 K/uL (1.8-7.0); NEUT % 66.1 % (50.0-75.0); NRBC % 0.1 % (0.0-0.0); RED CELL DISTRIBUTION WIDTH 13.4 % (11.5-14.5)
[2016-12-16 08:17] LABS: ALB/GLOB RATIO 0.9 (1.0-2.1); ALKALINE PHOSPHATASE 100 U/L (38-126); ALT/SGPT 48 U/L (21-72); AST/SGOT 28 U/L (17-59); BILIRUBIN,TOTAL 0.7 mg/dl (0.2-1.3); BLOOD UREA NITROGEN 18 mg/dl (9-20); CALCIUM 8.7 mg/dL (8.4-10.2); CARBON DIOXIDE 33 mmol/L (22-30); CHLORIDE 105 mmol/L (98-107); GFR AFRICAN-AMERICAN > 60; GLUCOSE,RANDOM 144 mg/dL (75-110); PHOSPHOROUS 3.4 mg/dl (2.5-4.5); POTASSIUM 3.9 MMOL/L (3.6-5.0); SODIUM 148 mmol/l (132-148); TOTAL PROTEIN 6.1 G/DL (6.3-8.2)
[2016-12-16] MEDS: Bacitracin OINT 15GM TOP SCH (08:59)
[2016-12-16] MEDS: Divalproex 125 mg Sprinkle Capsule PO SCH ×2 (09:00→16:38)
[2016-12-16] MEDS: Potassium Chloride 20 mEq ER Tab PO SCH (09:01)
[2016-12-16] MEDS: Enoxaparin 40 mg Syringe SC SCH (09:04)
[2016-12-16] MEDS: Vitamins A & D Oint UD Foilpak TOP SCH (09:07)
[2016-12-16] MEDS: Silver Sulfadiazine 1% Cream (20 gm) TOP SCH ×2 (12:11→16:39)
--- NOTE | 2016-12-16 17:17 | RAD ---
PROCEDURE: CHEST RADIOGRAPH, 1 VIEW HISTORY: [email or web address] COMPARISON: 12/12/2016. FINDINGS: LUNGS: Bibasilar atelectasis left greater than right. Developing left lower lobe infiltrate could be excluded with followup radiographs. There may also be small bilateral effusions left larger than right. PLEURA: No pneumothorax or pleural fluid seen. CARDIOVASCULAR: Borderline cardiomegaly. OSSEOUS STRUCTURES: No significant abnormalities. VISUALIZED UPPER ABDOMEN: Normal. OTHER FINDINGS: None. IMPRESSION: Bibasilar atelectasis left greater than right. Developing left lower lobe infiltrate could be excluded with followup radiographs. There may also be small bilateral effusions left larger than right.
[2016-12-16 20:50] VITALS: BP 105/60; PULSE 72; RESP 15; TEMP 97.6; O2SAT 95
--- NOTE | 2016-12-17 06:06 | CP.PCM.DIS ---
Provider - Provider Date of Admission: 12/10/16 12:34 Attending physician: Gertrude Garcia MD Time Spent in preparation of Discharge (in minutes): 15 Diagnosis - Discharge Diagnosis (1) DVT prophylaxis Status: Acute (2) Altered mental status Status: Acute (3) CHF exacerbation Status: Acute (4) COPD exacerbation Status: Acute Hospital Course - Lab Results Lab Results: Most Recent Lab Values WBC 7.0 K/uL (4.8-10.8) 12/16/16 07:30 RBC 4.32 Mil/uL (4.40-5.90) L 12/16/16 07:30 Hgb 13.7 g/dL (12.0-18.0) 12/16/16 07:30 Hct 41.6 % (35.0-51.0) 12/16/16 07:30 MCV 96.3 fl (80.0-94.0) H 12/16/16 07:30 MCH 31.7 pg (27.0-31.0) H 12/16/16 07:30 MCHC 33.0 g/dL (33.0-37.0) 12/16/16 07:30 RDW 13.4 % (11.5-14.5) 12/16/16 07:30 Plt Count 160 K/uL (130-400) 12/16/16 07:30 MPV 9.4 fl (7.2-11.7) 12/16/16 07:30 Neut % (Auto) 66.1 % (50.0-75.0) 12/16/16 07:30 Lymph % (Auto) 17.6 % (20.0-40.0) L 12/16/16 07:30 Sac % (Auto) 12.4 % (0.0-10.0) H 12/16/16 07:30 Eos % (Auto) 3.4 % (0.0-4.0) 12/16/16 07:30 Baso % (Auto) 0.5 % (0.0-2.0) 12/16/16 07:30 Neut # 4.6 K/uL (1.8-7.0) 12/16/16 07:30 Lymph # 1.2 K/uL (1.0-4.3) 12/16/16 07:30 Sac # 0.9 K/uL (0.0-0.8) H 12/16/16 07:30 Eos # 0.2 K/uL (0.0-0.7) 12/16/16 07:30 Baso # 0.0 K/uL (0.0-0.2) 12/16/16 07:30 PT 11.8 SECONDS (9.6-11.2) H 12/09/16 20:50 INR 1.13 (0.92-1.08) H 12/09/16 20:50 APTT 25.1 SECONDS (23.3-32.5) 12/09/16 20:50 pCO2 66 mm/Hg (35-45) H 12/15/16 11:21 pO2 84 mm/Hg (80-100) 12/15/16 11:21 HCO3 31.3 mmol/L (21-28) H 12/15/16 11:21 ABG pH 7.35 (7.35-7.45) 12/15/16 11:21 ABG Total CO2 38.4 mmol/L (22-28) H 12/15/16 11:21 ABG O2 Saturation 99.0 % (95-98) H 12/15/16 11:21 ABG O2 Content 17.7 ML/dL (15-23) 12/15/16 11:21 ABG Base Excess 8.3 mmol/L (-2.0-3.0) H 12/15/16 11:21 ABG Hemoglobin 13.4 g/dL (11.7-17.4) 12/15/16 11:21 ABG Carboxyhemoglobin 3.0 % (0.5-1.5) H 12/15/16 11:21 POC ABG HHb (Measured) 0.9 % (0.0-5.0) 12/15/16 11:21 ABG Methemoglobin 2.3 % (0.0-3.0) 12/15/16 11:21 ABG O2 Capacity 17.9 mL/dL (16-24) 12/15/16 11:21 Mo Test Yes 12/15/16 11:21 ABG Potassium 3.5 mmol/L (3.6-5.2) L 12/09/16 21:25 A-a O2 Difference 47.0 mm/Hg 12/15/16 11:21 Hgb O2 Saturation 93.8 % (95.0-98.0) L 12/15/16 11:21 Sodium 141.0 mmol/L (132-148) 12/09/16 21:25 Chloride 109.0 mmol/L (98-107) H 12/09/16 21:25 Glucose 135 mg/dL (75-110) H 12/09/16 21:25 Lactate 0.9 mmol/L (0.7-2.1) 12/09/16 21:25 FiO2 30.0 % 12/15/16 11:21 Blood Gas Comments 2l/m nc,rr 12/15/16 11:21 Crit Value Read Back N 12/15/16 11:21 Sodium 148 mmol/l (132-148) 12/16/16 07:30 Potassium 3.9 MMOL/L (3.6-5.0) 12/16/16 07:30 Chloride 105 mmol/L (98-107) 12/16/16 07:30 Carbon Dioxide 33 mmol/L (22-30) H 12/16/16 07:30 Anion Gap 14 (10-20) 12/16/16 07:30 BUN 18 mg/dl (9-20) 12/16/16 07:30 Creatinine 1.0 mg/dL (0.8-1.5) 12/16/16 07:30 Est GFR ( Amer) > 60 12/16/16 07:30 Est GFR (Non-Af Amer) > 60 12/16/16 07:30 POC Glucose (mg/dL) 204 mg/dL (65-110) H 12/16/16 20:32 Random Glucose 144 mg/dL (75-110) H 12/16/16 07:30 Lactic Acid 1.1 MMOL/L (0.7-2.1) 12/09/16 20:50 Calcium 8.7 mg/dL (8.4-10.2) 12/16/16 07:30 Phosphorus 3.4 mg/dl (2.5-4.5) 12/16/16 07:30 Magnesium 2.0 MG/DL (1.6-2.3) 12/16/16 07:30 Total Bilirubin 0.7 mg/dl (0.2-1.3) 12/16/16 07:30 AST 28 U/L (17-59) 12/16/16 07:30 ALT 48 U/L (21-72) 12/16/16 07:30 Alkaline Phosphatase 100 U/L (38-126) 12/16/16 07:30 Troponin I < 0.0120 ng/mL (0.00-0.120) 12/10/16 05:10 NT-Pro-B Natriuret Pep 230 pg/ml (0-900) 12/10/16 05:10 Total Protein 6.1 G/DL (6.3-8.2) L 12/16/16 07:30 Albumin 2.9 g/dL (3.5-5.0) L 12/16/16 07:30 Globulin 3.1 gm/dL (2.2-3.9) 12/16/16 07:30 Albumin/Globulin Ratio 0.9 (1.0-2.1) L 12/16/16 07:30 Vitamin B12 > 1000 pg/mL (239-931) H 12/10/16 14:13 Folate > 20.0 ng/mL 12/10/16 14:13 Arterial Blood Potassium 3.5 mmol/L (3.6-5.2) L 12/09/16 21:25 Urine Color Colorless (YELLOW) 12/10/16 00:00 Urine Clarity Clear (Clear) 12/10/16 00:00 Urine pH 7.0 (5.0-8.0) 12/10/16 00:00 Ur Specific [place] 1.005 (1.003-1.030) 12/10/16 00:00 Urine Protein Negative mg/dL (NEGATIVE) 12/10/16 00:00 Urine Glucose (UA) Neg mg/dL (Normal) 12/10/16 00:00 Urine Ketones Negative mg/dL (NEGATIVE) 12/10/16 00:00 Urine Blood Small (NEGATIVE) 12/10/16 00:00 Urine Nitrate Negative (NEGATIVE) 12/10/16 00:00 Urine Bilirubin Negative (NEGATIVE) 12/10/16 00:00 Urine Urobilinogen 0.2-1.0 mg/dL (0.2-1.0) 12/10/16 00:00 Ur Leukocyte Esterase Neg Kristen/uL (Negative) 12/10/16 00:00 Urine RBC (Auto) 1 /hpf (0-3) 12/10/16 00:00 Urine Microscopic WBC < 1 /hpf (0-5) 12/10/16 00:00 Valproic Acid < 10.0 ug/mL (50.0-100.0) L 12/14/16 06:30 Alcohol, Quantitative < 10 mg/dl (0-10) 12/09/16 20:50 RPR Nonreactive (NONREACTIVE) 12/10/16 14:13 Blood Type O POSITIVE 12/09/16 21:18 Antibody Screen Negative 12/09/16 21:18 BBK History Checked No verified bt 12/09/16 21:18 Discharge Exam - Head Exam Head Exam: ATRAUMATIC, NORMAL INSPECTION, NORMOCEPHALIC Discharge Plan - Follow Up Plan Condition: FAIR Disposition: REHAB FACILITY/REHAB UNIT Instructions: Altered Mental Status (GEN) Additional Instructions: shira andre dx-delerium, agitation [facility], family aware, rted prn, meds per med rec
== END 2016-12-16 20:45 | DRG 71 ==
LOC: H.ER 20:04 → H.ERHOLD 22:54 → H.TEL 12-10 01:10 → OBSVTOIN 12-10 12:34 → H.MEDSURG1 12-11 18:41
PROVIDERS: ADMIT Family Medicine; ATTEND Family Medicine
PROC: 5A0945Z Assistance with Respiratory Ventilation, 24-96 Consecutive Hours (ICD-10-PCS; principal; 2016-12-12)
DX: G93.40 Encephalopathy, unspecified (principal); J44.1 Chronic obstructive pulmonary disease with (acute) exacerbation; F05 Delirium due to known physiological condition; I50.22 Chronic systolic (congestive) heart failure; I11.0 Hypertensive heart disease with heart failure; F03.91 Unspecified dementia, unspecified severity, with behavioral disturbance; E11.9 Type 2 diabetes mellitus without complications

== ENCOUNTER 2016-12-17 10:06 | Inpatient (IN) | payer MEDICARE, MEDICAID ==
[2016-12-17 10:13] VITALS: BMI 25.7
[2016-12-17] MEDS ORDERED: Sodium Chloride 0.9% 1,000 ML IV SCH (10:15)
[2016-12-17 10:24] LABS: ABG ALLEN TEST YES; ABG MECHANICAL RATE 12; ARTERIAL BLOOD GAS HCO3 28.6 mmol/L (21-28); ARTERIAL BLOOD GAS MODE PRVC/AC; ARTERIAL BLOOD GAS PO2 77 mm/Hg (80-100); ATERIAL BLOOD GAS PEEP 5
[2016-12-17 10:57] LABS: BASO % 0.3 % (0.0-2.0); EOS # 0.1 K/uL (0.0-0.7); EOS % 0.8 % (0.0-4.0); HEMATOCRIT 40.5 % (35.0-51.0); LYMPH # 1.5 K/uL (1.0-4.3); LYMPH % 13.9 % (20.0-40.0); MEAN PLATELET VOLUME 10.2 fl (7.2-11.7); MONO # 1.7 K/uL (0.0-0.8); MONO % 15.2 % (0.0-10.0); NEUT # 7.8 K/uL (1.8-7.0); NEUT % 69.8 % (50.0-75.0); NRBC % 0.2 % (0.0-0.0); RED CELL DISTRIBUTION WIDTH 14.1 % (11.5-14.5); WHITE BLOOD COUNT 11.1 K/uL (4.8-10.8)
[2016-12-17 10:59] LABS: MEAN CELL VOLUME 100.1 fl (80.0-94.0)
[2016-12-17] MEDS ORDERED: Sodium Chloride 0.9% 1,000 ML IV STA (11:15)
--- NOTE | 2016-12-17 11:20 | ED PDOC ---
HPI: SOB/CHF/COPD Time Seen by Provider: 12/17/16 10:12 Chief Complaint (Nursing): Respiratory Distress Chief Complaint (Provider): Respiratory Distress History Per: EMS History/Exam Limitations: clinical condition Onset/Duration Of Symptoms: Days (Today) Current Symptoms Are (Timing): Still Present Additional Complaint(s): Pt. with baseline decrease responsiveness. Overnight even more decreased responsiveness and trouble breathing. EMS showed and had a pulsox of 30 despite mask. They intubated with no meds. Given versed after for post intubation sedation. Was dc from hospital last night. Past Medical History Reviewed: Nursing Documentation, Vital Signs Vital Signs: Last Vital Signs Temp 98.8 F 12/17/16 11:24 Pulse 95 H 12/17/16 11:24 Resp 15 12/17/16 11:24 BP 101/59 L 12/17/16 11:24 Pulse Ox - Medical History PMH: CHF, Dementia, Diabetes, HTN, Pneumonia - Family History Family History: States: Unknown Family Hx - Living Arrangements Living Arrangements: [facility] - Home Medications Home Medications: Ambulatory Orders Medication Instructions Recorded Atorvastatin [Lipitor] 20 mg PO HS 12/17/16 Bacitracin OINT [Bacitracin OINT] 1 appl TOP BID 12/17/16 Carvedilol [Coreg] 6.25 mg PO Q12H 12/17/16 Divalproex [Depakote DR TAB] 125 mg PO BID 12/17/16 Enoxaparin [Lovenox] 40 mg SC DAILY 12/17/16 Famotidine [Pepcid] 20 mg PO BID 12/17/16 Fluticasone Propionate [Flonase] 1 spray ABBY BID 12/17/16 Furosemide [Lasix] 20 mg PO DAILY 12/17/16 Gabapentin [Neurontin] 300 mg PO BID 12/17/16 Linagliptin [Tradjenta] 5 mg PO DAILY 12/17/16 Magnesium Hydroxide [Milk Of 30 ml PO Q4H PRN 12/17/16 Magnesia] Potassium Chloride [Potassium 20 meq PO DAILY 12/17/16 Chloride Oral Soln] SITagliptin [Januvia] 100 mg PO DAILY 12/17/16 - Allergies Allergies/Adverse Reactions: Allergies Allergy/AdvReac Type Severity Reaction Status Date / Time No Known Allergies Allergy Verified 12/17/16 11:02 Review of Systems Review Of Systems: ROS cannot be obtained secondary to pt's inabilty to answer questions. Physical Exam - Reviewed Nursing Documentation Reviewed: Yes Vital Signs Reviewed: Yes - Physical Exam Appears: Positive for: In Acute Distress Head Exam: Positive for: ATRAUMATIC Skin: Positive for: Normal Color, Warm, DRY Eye Exam: Positive for: Other (pinpoint b/l reactive equal). Negative for: Periorbital swelling, Periorbital tenderness ENT: Positive for: Other (intubated) Neck: Positive for: Normal, Supple Cardiovascular/Chest: Positive for: Regular Rate, Rhythm, Edema (diffuse upper extremities mild) Respiratory: Positive for: Decreased Breath Sounds, Other (coarse b/l diminished ; breathes with bagging) Gastrointestinal/Abdominal: Positive for: Normal Exam, Bowel Sounds, Soft. Negative for: Tenderness Back: Positive for: Normal Inspection Extremity: Negative for: Tenderness, Pedal Edema Neurologic/Psych: Positive for: Other (limited neurological exam due to condition). Negative for: Alert, Oriented - Laboratory Results Result Diagrams: 12/17/16 10:52 Interpretation Of Abn Labs: pco2 elevated; 11 wbc - ECG ECG Rhythm: Positive for: Normal QRS, Sinus Rhythm, Nonspecific Changes - Radiology X-Ray: Interpreted by Me, Viewed By Me X-Ray Interpretation: Infiltrates (RLL) - Progress ED Course And Treament: 1115: Pt. difficult to get IV access. Came with IO. Central line groin left femoral attempted with no blood return. Central line right IJ attempted witih ultrasound and not successful. R femoral groin central line attempted and successful. Fluids going. BP improving. Hypotensive at assisted with SBP 70. 1125: Spoke with Dr. Cedeno. Will admit ICU. 1145: Will call code sepsis. Pt. hypotensive 70s systolic. Will start levophed. Pneumonia RLL. 1208: Pt. tube not in place and not cuff above epiglottis. Pt. reintubated with 7.5 tube. Spoke with Juni. Will admit ICU. 1228: Stable. Sats improved. Is a code sepsis as pt. bp was low despite fluids. - Critical Care Total Time (In Min): 60 Documented Critical Care: Time excludes all time spent performint seperately billable procedures Disposition - Clinical Impression Clinical Impression: Respiratory failure, Pneumonia - Patient ED Disposition Is Patient to be Admitted: Yes Counseled Patient/Family Regarding: Studies Performed, Diagnosis - Disposition Disposition Time: 12:20 Condition: CRITICAL - POA Present On Arrival: None Core Measure Indicators: Code Sepsis, Pneumonia Procedures - Central Line Central Line Lumen: triple Central Line Procedure: betadine prep, sterile drapes applied, sterile dressing applied Central Line Postion: femoral (R) Complications: none Central Line Post Position: sutured, good blood return Progress: L femoral and R IJ attempted with no success. Was emergent line access. - Intubation Time of Intubation: 12:00 Intubation Method: orotracheal Tube Size (cm): 7.5 Breath Sounds after Intubation: equal Intubation Complications: no complications Post Intubation Xray: Yes Progress/Xray Impression: Stable. Tube in place; Glidescope used.
[2016-12-17] MEDS ORDERED: Albuterol-Ipratrop 3 mg / 0.5 (3 ml) UD INH STA (11:24)
[2016-12-17] MEDS ORDERED: Albuterol-Ipratrop 3 mg / 0.5 (3 ml) UD IH STA ×2 (11:24)
[2016-12-17] MEDS ORDERED: Sodium Chloride 0.9% 500 ML IV STA (11:35)
[2016-12-17] MEDS ORDERED: Vancomycin 1 g Inj ONE (11:43)
[2016-12-17] MEDS ORDERED: Ciprofloxacin 400mg/200ml D5W 400 MG/200 ML BAG IVPB ONE (11:43)
[2016-12-17] MEDS ORDERED: Propofol 10 mg/ml 1,000 MG/100 ML VIAL ONE (11:54)
[2016-12-17] MEDS ORDERED: Piperacillin/Tazobact 4.5 GM in Sodium Chloride 0.9% 100 ML IVPB STA (11:57)
[2016-12-17] MEDS ORDERED: Propofol 10 mg/ml Inj (20 ML) IV ONE (12:07)
[2016-12-17] MEDS ORDERED: Ciprofloxacin 400mg/200ml D5W 400 MG/200 ML BAG IVPB STA (12:24)
[2016-12-17 12:36] LABS: RBC URINE 128 /hpf (0-3); URINE BACTERIA MOD (<OCC); URINE BILIRUBIN SMALL (NEGATIVE); URINE BLOOD MODERATE (NEGATIVE); URINE COLOR AMBER (YELLOW); URINE GLUCOSE (UA) 50 mg/dL (Normal); URINE KETONE TRACE mg/dL (NEGATIVE); URINE LEUKOCYTE ESTERASE NEG Leu/uL (Negative); URINE PROTEIN >=500 mg/dL (NEGATIVE); WBC URINE 54 /hpf (0-5)
--- NOTE | 2016-12-17 13:26 | CT ---
PROCEDURE: CT HEAD WITHOUT CONTRAST. HISTORY: headache COMPARISON: None available. TECHNIQUE: Axial computed tomography images were obtained through the head/brain without intravenous contrast. Radiation dose: Total exam DLP = 1793.15 mGy-cm. This CT exam was performed using one or more of the following dose reduction techniques: Automated exposure control, adjustment of the mA and/or kV according to patient size, and/or use of iterative reconstruction technique. FINDINGS: HEMORRHAGE: No acute parenchymal, subarachnoid nor extra-axial hemorrhage. BRAIN: Mild -moderate chronic periventricular white matter ischemic changes extend peripherally into the deep and subcortical white matter both cerebral hemispheres. Moderate volume loss. VENTRICLES: Ventricles are dilated due to volume loss however the the ventricles do not appear hydro cephalic CALVARIUM: No acute calvarial fractures PARANASAL SINUSES: Mild to moderate mucosal thickening left maxillary antrum with minor mucosal thickening right maxillary antrum. There is also mild to moderate mucosal thickening within the ethmoid air complex superiorly extending superiorly slightly into the inferior aspect of the frontal sinus. Minor mucosal thickening sphenoid sinus as well. MASTOID AIR CELLS: Partial opacification both mastoid air complexes. . OTHER FINDINGS: Note made of coiled NG tube within the oral cavity which should be repositioned. . Prominent adenoids with secretions in the nasopharynx and posterior nasal cavities. IMPRESSION: No acute intracranial hemorrhage. Mild -moderate chronic white matter ischemic changes as above. Moderate volume loss Note made of coiled NG tube within the oral cavity which should be repositioned. . Prominent adenoids with secretions in the nasopharynx and posterior nasal cavities. . Mild to moderate mucoperiosteal inflammatory changes within all the paranasal sinuses . Partial opacification of both mastoid air complexes.
--- NOTE | 2016-12-17 14:00 | RAD ---
HISTORY: Sepsis patient. Portable study 11:28. COMPARISON: December 15, 2016. FINDINGS: LUNGS: Progressive infiltrates primarily lower lobes. PLEURA: No significant pleural effusion identified, no pneumothorax apparent. CARDIOVASCULAR: No radiographic findings to suggest acute or significant cardiovascular disease. OSSEOUS STRUCTURES: No significant abnormalities. VISUALIZED UPPER ABDOMEN: Normal. OTHER FINDINGS: Poorly position endotracheal tube. The tip is at least 3 cm above the clavicles. IMPRESSION: Worsening bilateral lower lobe infiltrates. Poorly positioned endotracheal tube.
--- NOTE | 2016-12-17 14:01 | RAD ---
HISTORY: Endotracheal tube placement. Portable study 12:40. COMPARISON: Multiple serial examinations preceding the most recent study: December 17, 2016. 11:28. FINDINGS: LUNGS: Persistent primarily lower lobe infiltrates with interval improvement compared to the most recent study. PLEURA: No significant pleural effusion identified, no pneumothorax apparent. CARDIOVASCULAR: Normal. OSSEOUS STRUCTURES: No significant abnormalities. VISUALIZED UPPER ABDOMEN: Normal. OTHER FINDINGS: Satisfactory positioning of endotracheal tube. Satisfactory position of nasogastric tube. IMPRESSION: Improving primarily lower lobe infiltrates. Satisfactory position of support apparatus including nasogastric tube and recently positioned endotracheal tube.
[2016-12-17 14:21] LABS: VENOUS BLOOD GAS BASE EXCESS -2.6 mmol/L (0.0-2.0); VENOUS BLOOD GAS PCO2 74 mmHg (40-60); VENOUS BLOOD PH 7.18 (7.32-7.43)
[2016-12-17 14:39] LABS: CALCIUM 7.9 mg/dL (8.4-10.2); PHOSPHOROUS 5.2 mg/dl (2.5-4.5); TOTAL PROTEIN 5.1 G/DL (6.3-8.2)
[2016-12-17 14:41] LABS: BILIRUBIN,TOTAL 0.6 mg/dl (0.2-1.3)
[2016-12-17 14:52] LABS: TROPONIN I 0.023 ng/mL (0.00-0.120)
[2016-12-17 14:53] LABS: POTASSIUM 5.2 MMOL/L (3.6-5.0)
--- NOTE | 2016-12-17 15:01 | CP.CCUPN ---
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 Jiménez: 81M, PMH: HTN, DM II, recurrent Pneumonia, just discharged from [facility] yesterday and noted to be in respiratory distress with decreased mental status response, and [facility] at the [facility]. In ER, noted to remain unresponsive and hypotensive. Central venous access obtained and given total of 3 liters saline before Levophed started for BP support. Upon patient evaluation in ED, noted ETT to be markedly out, at approx. 19cm mindi at the gums. Attempts to re-position ETT unsuccessful even with bougie assistance. With assistance by ER MD using glidescope, ETT removed and new 7.5mm ETT placed and position confirmed within trachea on auscultation, and ETCO2. Propofol 40mg IVP used to facilitate re-intubation. Webb catheter placed with approx. 10 ml dark urine return. He remains poorly responsive to pain, no focal deficits noted, or reported. T= 98.8F, BP 127/68 on Levophed, HR 99 sinus, RR 24 on AC 12, TV 450ml, PEEP 5 , Allergies: NKDA Outpatient Meds: Lipitor, Coreg, Restoril, Risperdal, Pepcid, Flonase, Lasix, Neurontin, Tradjenta, Januvia. ROS: as above, no other obtainable pertinent negs or positives on 12 system review from other documentations. PMSFH: All nursing and physician documentation reviewed, no new information noted pertinent to current medical problems. No other distress noted: EXAM- HEENT: no icterus, pupils pinpoint but equal and reactive bilat, no nystagmus NECK: no visible JVD, supple, carotids equal upstroke bilat/no bruits CHEST: decreased BS bases, no wheezes audible HEART: regular, distant, tachy S1S2, no murmur audible, no rubs. ABD: soft, obese, +distention post re-intubation, no focal tenderness, no HSM. BS hypoactive, no abdominal bruits or other masses EXT: no leg edema, no peripheral/ digital cyanosis, no calf tenderness or palpable cords, distal pulses intact and symmetrical NEURO: No focal motor deficits, + tone all etxremities. SKIN: no rashes LABS: 7.30// WBC= 11.1 HGB= 12.6 PLTs= 103K Na= K= HCO3= BUN/Cr= BS= EKG: sinus 94/min, no acute ST T changes. CXR: (my interp)- Serial films today reviewed. Second film show better expansion. Especially R lung. ETT position better and appropriately positioned above lex as compared to initial film. MAJOR PROBLEMS: 1. Acute Hypoxemic Hypercapneic Resp Failure 2. Pneumonitis, r/o Aspiration event 3. Sepsis with Shock, r/o Bacteremia 4. AMS 2 Toxic-metabolic / Septic Encephalopathy, r/o Acvute CVA 5. r/o AMI PLAN: 1. MV support for now, check repeat ABG, check VBG, sputum C&S, empiric abx coverage for hospital acquired organisms. 2. Fluids received already amount to 3 liters, Vasopressor support started with Norepinephrine. Follow serial Lactate levels. 3. CT Brain 4. 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 5. Consults with Cardio (Leeroy), Pulm (Jigar), and Neuro ( Renetta) as per Dr. Jiménez. 6. Clarify any Advance Directives.
[2016-12-17] MEDS: Piperacillin/Tazobact 3.375 GM in Sodium Chloride 0.9% 100 ML IVPB SCH ×2 (16:58→21:10)
[2016-12-17] MEDS: Ciprofloxacin 400mg/200ml D5W 400 MG/200 ML BAG IVPB SCH (22:17)
[2016-12-17] MEDS: Sodium Chloride 0.9% 1,000 ML IV SCH (22:21)
[2016-12-17] MEDS ORDERED: Acetaminophen 650mg/20.3ml solution UD PO PRN (23:08)
[2016-12-18 03:22] LABS: TROPONIN I 0.024 ng/mL (0.00-0.120)
[2016-12-18] MEDS: Piperacillin/Tazobact 3.375 GM in Sodium Chloride 0.9% 100 ML IVPB SCH ×4 (03:31→22:08)
[2016-12-18 03:37] LABS: ALB/GLOB RATIO 0.9 (1.0-2.1); BILIRUBIN,TOTAL 0.7 mg/dl (0.2-1.3)
[2016-12-18 03:38] LABS: CALCIUM 7.7 mg/dL (8.4-10.2)
[2016-12-18 05:29] LABS: BASO % 0.3 % (0.0-2.0); LYMPH # 0.8 K/uL (1.0-4.3); LYMPH % 5.1 % (20.0-40.0); MEAN CELL VOLUME 96.4 fl (80.0-94.0); MEAN CORPUSCULAR HEMOGLOBIN 31.4 pg (27.0-31.0); MEAN CORPUSCULAR HGB CONC 32.6 g/dL (33.0-37.0); MEAN PLATELET VOLUME 9.6 fl (7.2-11.7); MONO # 0.9 K/uL (0.0-0.8); MONO % 5.9 % (0.0-10.0); NEUT # 13.4 K/uL (1.8-7.0); NEUT % 88.7 % (50.0-75.0); PLATELET COUNT 193 K/uL (130-400); RED CELL DISTRIBUTION WIDTH 13.5 % (11.5-14.5); WHITE BLOOD COUNT 15.1 K/uL (4.8-10.8)
[2016-12-18 05:33] LABS: ABG ALLEN TEST YES; ABG MECHANICAL RATE 14; ARTERIAL BLOOD GAS HCO3 25.8 mmol/L (21-28); ARTERIAL BLOOD GAS MODE A/C; ARTERIAL BLOOD GAS PH 7.52 (7.35-7.45); ARTERIAL BLOOD GAS PO2 78 mm/Hg (80-100); ATERIAL BLOOD GAS PEEP 5
[2016-12-18 05:37] LABS: PARTIAL THROMBOPLASTIN TIME 26.6 SECONDS (23.3-32.5)
[2016-12-18 06:46] LABS: BASOPHIL 1 % (0-2); NEUTROPHIL 80 % (42-75); REACTIVE LYMPHOCYTES 2 % (0-0); TOTAL CELLS COUNTED 100
--- NOTE | 2016-12-18 07:21 | CP.PCM.HP ---
History of Present Illness - History of Present Illness History of Present Illness: pt admitted for resp failure after haivng resp distress at [facility]. was intubated in field and then reintubated in ER. initial film demonstrated large pna, repeat film less obv pna. case d/c w/ dr reyes. nad imaging noted. Present on Admission - Present on Admission Any Indicators Present on Admission: No Review of Systems - Review of Systems Systems not reviewed;Unavailable: Intubated - Neurological Neurological: As Per HPI Past Patient History - Past Medical History & Family History Past Medical History?: Yes - Past Social History Smoking Status: Unknown If Ever Smoked - CARDIAC Hx Cardiac Disorders: No Hx Angina: No Hx Atrial Fibrillation: No Hx Cardia Arrhythmia: No Hx Circulatory Problems: No Hx Congestive Heart Failure: Yes Hx Heart Attack: No Hx Heart Murmur: No Hx Heart Transplant: No Hx Hypercholesterolemia: No Hx Hypertension: Yes Hx Hypotension: No Hx Internal Defibrillator: No Hx Mitral Valve Prolapse: No Hx Pacemaker: No Hx Peripheral Edema: No Hx Peripheral Vascular Disease: No - PULMONARY Hx Respiratory Disorders: Yes Hx Asthma: No Hx Bronchitis: No Hx Chronic Obstructive Pulmonary Disease (COPD): No Hx Emphysema: No Hx Lung Cancer: No Hx Pneumonia: Yes Hx Pulmonary Edema: No Hx Pulmonary Embolism: No Hx Respiratory Aspiration: No Hx Respiratory Tract Infection: No Hx Sleep Apnea: No Hx Tuberculosis: No Other/Comment: RESP FAILURE - NEUROLOGICAL Hx Neurological Disorder: No Hx Alzheimer's Disease: No HX Cerebrovascular Accident: No Hx Dementia: Yes Hx Dizziness: No Hx Meningitis: No Hx Migraine: No Hx Multiple Sclerosis: No Hx Paralysis: No Hx Parkinson's Disease: No Hx Seizures: No Hx Syncope: No Hx Transient Ischemic Attacks (TIA): No Hx Vertigo: No - HEENT Hx HEENT Problems: No Hx Blind: No Hx Cataracts: No Hx Deafness: No Hx Difficulty Chewing: Yes Hx Epistaxis: No Hx Glaucoma: No Hx Macular Degeneration: No Hx Sinusitis: No - RENAL Hx Chronic Kidney Disease: No Hx Dialysis: No Hx Kidney Stones: No Hx Neurogenic Bladder: No Hx Pyelonephritis: No Hx Renal (Kidney) Cancer: No Hx Renal Failure: No - ENDOCRINE/METABOLIC Hx Endocrine Disorders: Yes Hx Adrenal Cancer: No Hx Diabetes Insipidus: No Hx Diabetes Mellitus Type 1: No Hx Diabetes Mellitus Type 2: Yes Hx Hyperthyroidism: No Hx Hypothyroidism: No Hx Systemic Lupus Erythematosus: No - HEMATOLOGICAL/ONCOLOGICAL Hx Blood Disorders: No Hx AIDS: No Hx Anemia: No Hx Blood Transfusions: No Hx Blood Transfusion Reaction: No Hx Bruising: Yes Hx Cancer: No Hx Chemotherapy: No Hx Cirrhosis: No Hx Gum Bleeding: No Hx Hemophilia: No Hx Hepatitis A: No Hx Hepatitis B: No Hx Hepatitis C: No Hx Human Immunodeficiency Virus (HIV): No Hx Leukemia: No Hx Metastesis: No Hx Shingles: No Hx Sickle Cell Disease: No Hx Unexplained Bleeding: No Hx von Willebrand's Disease: No - INTEGUMENTARY Hx Dermatological Problems: No Hx Basil Cell: No Hx Aguilera: No Hx Cellulitis: No Hx Eczema: No Hx Melanoma: No Hx Psoriasis: No - MUSCULOSKELETAL/RHEUMATOLOGICAL Hx Musculoskeletal Disorders: Yes Hx Arthritis: No Hx Back Pain: No Hx Degenerative Joint Disease: No Hx Falls: No (UNKNOWN) Hx Fractures: No Hx Gout: No Hx Herniated Disk: No Hx Myasthenia Gravis: No Hx Osteoarthritis: No Hx Osteomyelitis: No Hx Osteoporosis: No Hx Rhabdomyolysis: No Hx Rheumatoid Arthritis: No Hx Spinal Stenosis: No Hx Unsteady Gait: Yes - GASTROINTESTINAL Hx Gastrointestinal Disorders: No Hx Bowel Surgery: No Hx Clostridium Difficile: No Hx Colitis: No Hx Colostomy: No Hx Constipation: Yes Hx Crohn's Disease: No Hx Diarrhea: No Hx Diverticulitis: No Hx Esophageal Varices: No Hx Fatty Liver Disease: No Hx Gall Bladder Disease: No Hx Gastritis: No Hx Gastroesophageal Reflux: Yes Hx Hemorrhoids: No Hx Ileostomy: No Hx Irritable Bowel: No Hx Liver Failure: No Hx Nausea: No Hx Pancreatitis: No Hx Ulcer: No Hx Vomiting: No - GENITOURINARY/GYNECOLOGICAL Hx Genitourinary Disorders: No Hx Bladder Cancer: No Hx Bladder Stone: No Hx Hematuria: No Hx Incontinence: Yes Hx Prostate Cancer: No Hx Prostate Problems: No Hx Reproductive Disorders: No Hx Sexually Transmitted Disorders: No Hx Urinary Tract Infection: No - PSYCHIATRIC Hx Psychophysiologic Disorder: Yes Hx Anxiety: Yes Hx Bipolar Disorder: No Hx Depression: Yes Hx Emotional Abuse: No Hx Hallucinations: No Hx Panic Symptoms: No Hx Paranoia: No Hx Post Traumatic Stress Disorder: No Hx Psychosis: No Hx Physical Abuse: No Hx Schizophrenia: No Hx Sexual Abuse: No Hx Substance Use: Yes - SURGICAL HISTORY Hx Surgeries: No Hx Abdominal Aortic Aneurysm Repair: No Hx Amputation: No Hx Angiogram: No Hx Angioplasty: No Hx Appendectomy: No Hx Arteriovenous Shunt: No Hx Arthroscopy: No Hx Bile Duct Stent: No Hx Breast Biopsy: No Hx Cataract Extraction: No Hx Cardiac Catheterization: No Hx Carotid Endarterectomy: No Hx Section: No Hx Cholecystectomy: No Hx Coronary Artery Bypass Graft: No Hx Coronary Stent: No Hx Dilation and Curettage: No Hx Eye Surgery: No Hx Femoral-Popliteal Bypass Graft: No Hx Gastric Bypass Surgery: No Hx Herniorrhaphy: No Hx Hysterectomy: No Hx Joint Replacement: No Hx Kidney Transplant: No Hx Liver Transplant: No Hx Mastectomy: No Hx Musculoskeletal Surgery: No Hx Open Heart Surgery: No Hx Open Reduction Internal Fixation: No Hx Orthopedic Surgery: No Hx Parathyroidectomy: No Hx Penile Implant: No Hx Pulmonary Surgery: No Hx Splenectomy: No Hx Thyroidectomy: No Hx Tonsillectomy: No Hx Tubal Ligation: No Hx Valve Replacement: No Hx Vascular Surgery: No Hx Vascular Access Device: No - ANESTHESIA Hx Anesthesia: No (UNKNOWN) Hx Anesthesia Reactions: No Hx Malignant Hyperthermia: No Has any member of the family had a problem w/ anesthesia?: No Meds Allergies/Adverse Reactions: Allergies Allergy/AdvReac Type Severity Reaction Status Date / Time No Known Allergies Allergy Verified 12/17/16 11:02 Physical Exam - Constitutional Appears: Non-toxic, No Acute Distress - Head Exam Head Exam: ATRAUMATIC, NORMAL INSPECTION, NORMOCEPHALIC - Eye Exam Eye Exam: EOMI, Normal appearance, PERRL Pupil Exam: NORMAL ACCOMODATION, PERRL - ENT Exam ENT Exam: Mucous Membranes Moist, Normal Exam - Neck Exam Neck exam: Positive for: Normal Inspection - Respiratory Exam Respiratory Exam: Clear to Auscultation Bilateral, NORMAL BREATHING PATTERN - Cardiovascular Exam Cardiovascular Exam: REGULAR RHYTHM, RRR, +S1, +S2 - GI/Abdominal Exam GI & Abdominal Exam: Normal Bowel Sounds, Soft. absent: Tenderness - Extremities Exam Extremities exam: Positive for: full ROM, normal capillary refill, normal inspection, pedal pulses present - Back Exam Back exam: NORMAL INSPECTION - Neurological Exam Neurological exam: Alert, CN II-XII Intact, Normal Gait, Oriented x3, Reflexes Normal - Psychiatric Exam Psychiatric exam: Normal Affect, Normal Mood - Skin Skin Exam: Dry, Intact, Normal Color, Warm Results - Vital Signs Recent Vital Signs: Last Vital Signs Temp 98.8 F 12/18/16 04:00 Pulse 83 12/18/16 06:00 Resp 15 12/18/16 06:00 BP 102/65 12/18/16 06:00 Pulse Ox 100 12/18/16 06:00 - Labs Result Diagrams: 12/18/16 04:40 12/18/16 03:01 Labs: Laboratory Results - last 24 hr 12/17/16 12/17/16 12/17/16 13:54 14:05 16:20 WBC RBC Hgb Hct MCV MCH MCHC RDW Plt Count MPV Neut % (Auto) Lymph % (Auto) Floyd % (Auto) Eos % (Auto) Baso % (Auto) Neut # Lymph # Floyd # Eos # Baso # Neutrophils % (Manual) Band Neutrophils % Lymphocytes % (Manual) Reactive Lymphs % Monocytes % (Manual) Basophils % (Manual) Platelet Estimate PT INR APTT pCO2 pO2 28 L HCO3 ABG pH ABG Total CO2 ABG O2 Saturation ABG Base Excess Mo Test ABG Potassium VBG pH 7.18 L* VBG pCO2 74 H* VBG HCO3 21.2 VBG Total CO2 29.9 H VBG O2 Sat (Calc) 54.9 VBG Base Excess -2.6 L VBG Potassium 4.8 A-a O2 Difference Glucose 304 H Lactate 1.7 Vent Mode Mechanical Rate FiO2 100.0 Tidal Volume PEEP Crit Value Called To Smitha bright Crit Value Called By Sk Crit Value Read Back Y Blood Gas Notified Time 1410 Sodium 147 140.0 Potassium 5.2 H Chloride 111 H 110.0 H Carbon Dioxide 28 Anion Gap 13 BUN 25 H Creatinine 1.8 H Est GFR ( Amer) 44 Est GFR (Non-Af Amer) 36 POC Glucose (mg/dL) 146 H Random Glucose 121 H Lactic Acid Calcium 7.9 L Phosphorus 5.2 H Magnesium 2.0 Total Bilirubin 0.6 AST 30 ALT 39 Alkaline Phosphatase 85 Troponin I 0.0230 NT-Pro-B Natriuret Pep 748 Total Protein 5.1 L Albumin 2.5 L Globulin 2.6 Albumin/Globulin Ratio 1.0 Arterial Blood Potassium Venous Blood Potassium 4.8 12/17/16 12/17/16 12/18/16 19:37 22:32 03:01 WBC RBC Hgb Hct MCV MCH MCHC RDW Plt Count MPV Neut % (Auto) Lymph % (Auto) Floyd % (Auto) Eos % (Auto) Baso % (Auto) Neut # Lymph # Floyd # Eos # Baso # Neutrophils % (Manual) Band Neutrophils % Lymphocytes % (Manual) Reactive Lymphs % Monocytes % (Manual) Basophils % (Manual) Platelet Estimate PT INR APTT pCO2 pO2 HCO3 ABG pH ABG Total CO2 ABG O2 Saturation ABG Base Excess Mo Test ABG Potassium VBG pH VBG pCO2 VBG HCO3 VBG Total CO2 VBG O2 Sat (Calc) VBG Base Excess VBG Potassium A-a O2 Difference Glucose Lactate Vent Mode Mechanical Rate FiO2 Tidal Volume PEEP Crit Value Called To Crit Value Called By Crit Value Read Back Blood Gas Notified Time Sodium 144 Potassium 4.0 Chloride 110 H Carbon Dioxide 23 Anion Gap 15 BUN 26 H Creatinine 1.5 Est GFR ( Amer) 54 Est GFR (Non-Af Amer) 45 POC Glucose (mg/dL) 284 H Random Glucose 351 H Lactic Acid Calcium 7.7 L Phosphorus Magnesium Total Bilirubin 0.7 AST 23 ALT 39 Alkaline Phosphatase 83 Troponin I 0.0240 0.0240 NT-Pro-B Natriuret Pep Total Protein 5.0 L Albumin 2.4 L Globulin 2.7 Albumin/Globulin Ratio 0.9 L Arterial Blood Potassium Venous Blood Potassium 12/18/16 12/18/16 12/18/16 04:40 04:40 04:40 WBC 15.1 H RBC 3.84 L Hgb 12.1 Hct 37.0 MCV 96.4 H D MCH 31.4 H MCHC 32.6 L RDW 13.5 Plt Count 193 MPV 9.6 Neut % (Auto) 88.7 H Lymph % (Auto) 5.1 L Floyd % (Auto) 5.9 Eos % (Auto) 0.0 Baso % (Auto) 0.3 Neut # 13.4 H Lymph # 0.8 L Floyd # 0.9 H Eos # 0.0 Baso # 0.0 Neutrophils % (Manual) 80 H Band Neutrophils % 6 H Lymphocytes % (Manual) 7 L Reactive Lymphs % 2 H Monocytes % (Manual) 4 Basophils % (Manual) 1 Platelet Estimate Normal PT 12.9 H INR 1.24 H APTT 26.6 pCO2 pO2 HCO3 ABG pH ABG Total CO2 ABG O2 Saturation ABG Base Excess Mo Test ABG Potassium VBG pH VBG pCO2 VBG HCO3 VBG Total CO2 VBG O2 Sat (Calc) VBG Base Excess VBG Potassium A-a O2 Difference Glucose Lactate Vent Mode Mechanical Rate FiO2 Tidal Volume PEEP Crit Value Called To Crit Value Called By Crit Value Read Back Blood Gas Notified Time Sodium Potassium Chloride Carbon Dioxide Anion Gap BUN Creatinine Est GFR ( Amer) Est GFR (Non-Af Amer) POC Glucose (mg/dL) Random Glucose Lactic Acid 1.9 Calcium Phosphorus Magnesium Total Bilirubin AST ALT Alkaline Phosphatase Troponin I NT-Pro-B Natriuret Pep Total Protein Albumin Globulin Albumin/Globulin Ratio Arterial Blood Potassium Venous Blood Potassium 12/18/16 12/18/16 05:26 05:52 WBC RBC Hgb Hct MCV MCH MCHC RDW Plt Count MPV Neut % (Auto) Lymph % (Auto) Floyd % (Auto) Eos % (Auto) Baso % (Auto) Neut # Lymph # Floyd # Eos # Baso # Neutrophils % (Manual) Band Neutrophils % Lymphocytes % (Manual) Reactive Lymphs % Monocytes % (Manual) Basophils % (Manual) Platelet Estimate PT INR APTT pCO2 28 L pO2 78 L HCO3 25.8 ABG pH 7.52 H ABG Total CO2 23.8 ABG O2 Saturation 98.7 H ABG Base Excess 1.1 Mo Test Yes ABG Potassium 3.8 VBG pH VBG pCO2 VBG HCO3 VBG Total CO2 VBG O2 Sat (Calc) VBG Base Excess VBG Potassium A-a O2 Difference 244.0 Glucose 343 H Lactate 1.9 Vent Mode A/c Mechanical Rate 14 FiO2 50.0 Tidal Volume 500 PEEP 5 Crit Value Called To Crit Value Called By Crit Value Read Back Blood Gas Notified Time 533 Sodium 142.0 Potassium Chloride 114.0 H Carbon Dioxide Anion Gap BUN Creatinine Est GFR ( Amer) Est GFR (Non-Af Amer) POC Glucose (mg/dL) 284 H Random Glucose Lactic Acid Calcium Phosphorus Magnesium Total Bilirubin AST ALT Alkaline Phosphatase Troponin I NT-Pro-B Natriuret Pep Total Protein Albumin Globulin Albumin/Globulin Ratio Arterial Blood Potassium 3.8 Venous Blood Potassium Assessment & Plan (1) Pneumonia Assessment and Plan: cipro, vanc, zosyn pulm vent support wean as giuliano sedate as needed monitor bw Status: Acute (2) Respiratory failure Assessment and Plan: vent, pulm, icu care Status: Acute (3) Altered mental status Status: Acute (4) DVT prophylaxis Assessment and Plan: scd and ae hose lovenox as per icu Status: Acute Decision To Admit - Pt Status Changed To: Hospital Disposition Of: Inpatient - Admit Certification Admit to Inpatient:: After my assessment, the patient will require hospitalization for at least two midnights. This is because of the severity of symptoms shown, intensity of services needed, and/or the medical risk in this patient being treated as an outpatient. - . Bed Request Type: Intensive Care Admitting Physician: Gertrude Garcia
--- NOTE | 2016-12-18 10:13 | CARD ---
APPROVED REPORT EKG Measurement Heart [id number] ID [id number] <Conclusion> Normal sinus rhythm Nonspecific ST and T wave abnormality Abnormal ECG
--- NOTE | 2016-12-18 10:23 | CON ---
DATE: 12/18/2016 HISTORY OF PRESENT ILLNESS: The patient is an 81-year-old male who is referred for pulmonary evaluati on, post-endotracheal intubation for acute respiratory failure. He was recently discharged from the hospital and then readmitted with acute respiratory failure, probably secondary to aspiration. He is in septic shock and has altered mental status secondary to possible toxic metabolic encephalopathy. He is unable to give any history. He is on a respirator and receiving mechanical ventilation. PHYSICAL EXAMINATION: GENERAL: Remarkable for an elderly gentleman who is intubated on a ventilator. VITAL SIGNS: Blood pressure 111/54 with a pulse of 85, O2 sat 100% on mechanical ventilation. SKIN: Shows fair turgor. MOUTH: ET tube in place. LUNGS: Bilateral coarse rales. HEART: S1, S2. ABDOMEN: Benign. EXTREMITIES: No edema noted. NEUROLOGIC: There are no gross deficits, but patient is sedated on a ventilator. LABORATORY DATA: Remarkable for WBC of 11.1, hemoglobin 12.6. EKG is sinus rhythm, nonspecific ST c hanges. Chest x-ray: ET tube is in good position, persistent lower lobe infiltrates with some inter lucretia improvements noted. IMPRESSION: 1. Acute respiratory failure, probably secondary to aspiration pneumonia (ABG on admission showed a pH of 7.30, pCO2 of 68, pO2 of 77). 2. Sepsis with septic shock and special. 3. Toxic metabolic encephalopathy. PLAN: To continue therapy as ordered, ventilator care, IV antibiotics. Prognosis is extremely guard ed. We will attempt to extubate once clinically stable. Magnus Kimball MD cc: [id number] TT: 12/18/2016 10:22:24 Confirmation # [id number] Dictation # [id number] richard
[2016-12-18] MEDS: Ciprofloxacin 400mg/200ml D5W 400 MG/200 ML BAG IVPB SCH ×2 (12:19→20:09)
[2016-12-18] MEDS: Sodium Chloride 0.9% 1,000 ML IV SCH (12:26)
--- NOTE | 2016-12-18 14:32 | RAD ---
PROCEDURE: CHEST RADIOGRAPH, 1 VIEW HISTORY: pt intubated COMPARISON: Comparison is made to the previous study dated 12/17/2016 FINDINGS: LUNGS: No significant interval change in the lungs noted. The ET tube is seen at appropriate position. PLEURA: Right pleural effusion is again seen. CARDIOVASCULAR: Normal. OSSEOUS STRUCTURES: No significant abnormalities. VISUALIZED UPPER ABDOMEN: Normal. OTHER FINDINGS: None. IMPRESSION: Overall no significant interval change since the previous exam. Appropriate position of the support devices.
--- NOTE | 2016-12-18 14:36 | CP.CCUPN ---
<Shashank Segura - Last Filed: 12/18/16 17:15> CCU Subjective - Physician Review Subjective (Free Text): 12/18/16 11:06 Patient seen and examined at bedside. Patient is currently sedated and non- verbal on mechanical ventilation. He has been satting at 100% overnight and has remained afebrile. He has tolerated weaning of levophed from 15mcg to 5mcg with systolic BP stable at 110. Fluids running well from Right groin triple lumen catheter and geri urine draining from blackmon. CCU Objective - Vital Signs / Intake & Output Vital Signs (Last 4 hours): Vital Signs Temp Pulse Resp BP Pulse Ox 12/18/16 12:17 86 14 112/57 L 100 12/18/16 12:00 98.8 F 81 13 112/57 L 100 Intake and Output (Last 8hrs): Intake & Output 12/17/16 12/18/16 12/18/16 22:59 06:59 14:59 Intake Total 1134 1124 779 Output Total 100 250 Balance 1034 874 779 Intake: IV 1034 704 229 Intake, Piggyback 100 400 550 Tube Feeding 20 Output: Urine 100 250 Urethral (Blackmon) 100 250 Other: # Bowel Movements 1 - Physical Exam Physical Exam Limitations: Positive for: Altered Mental Status (Sedated, on mechanical ventilation) Head: Positive for: Atraumatic, Normocephalic Pupils: Positive for: PERRL Mouth: Positive for: Dry Respiratory/Chest: Positive for: Other (B/L air entry present with low pitched rhonchii appreciated Lt>Rt. No wheezes audible. ). Negative for: Accessory Muscle Use Cardiovascular: Positive for: Regular Rate and Rhythm. Negative for: Murmurs Abdomen: Positive for: Normal Bowel Sounds. Negative for: Distention, Mass/ Organomegaly Lower Extremity: Positive for: Other (Left heel chronic eschar formation present measuring approximately [id number] with no active bleeding or drainage. ) . Negative for: Edema Neurological: Positive for: Other (Moving extremities spontaneously.) Skin: Positive for: Warm, Dry - Medications Active Medications: Active Medications Generic Name Dose Route Start Last Admin Trade Name Freq PRN Reason Stop Dose Admin Acetaminophen 650 mg 12/17/16 23:08 12/17/16 23:54 Tylenol 650mg/20.3ml Solution Ud PO 650 mg Q4 PRN Administration Temperature Norepinephrine Bitartrate 4 mg 254 mls @ 19.05 mls/hr 12/17/16 11:45 12:20 / Dextrose IV 2.5 mcg/min .[id number] MALA 9.52 mls/hr Protocol Titration 5 MCG/MIN Ciprofloxacin 400 mg in 200 mls @ 200 mls/hr 12/17/16 21:00 12/18/16 12:19 Cipro 400mg/200ml Dsw IVPB 200 mls/hr Q12 MALA Administration Vancomycin HCl 1 gm/ Sodium 250 mls @ 166.667 mls/hr 12/18/16 09:00 12/18/16 10:11 Chloride IVPB 166.667 mls/hr DAILY MALA Administration Piperacillin Sod/Tazobactam 100 mls @ 100 mls/hr 12/17/16 16:00 12/18/16 10: 12 Sod 3.375 gm/ Sodium Chloride IVPB 100 mls/hr Q6 MALA Administration Sodium Chloride 1,000 mls @ 75 mls/hr 12/17/16 22:30 12/18/16 12:26 Sodium Chloride 0.9% IV 12/18/16 22:16 75 mls/hr .[id number] MALA Administration Lorazepam 1 mg 12/18/16 03:37 12/18/16 13:01 Ativan IVP 1 mg Q6 PRN Administration Agitation Pantoprazole Sodium 40 mg 12/17/16 12:30 12/18/16 10:09 Protonix Inj IVP 40 mg DAILY MALA Administration - Patient Studies Lab Studies: Lab Studies 12/18/16 12/18/16 12/18/16 Range/Units 11:01 10:30 05:52 WBC (4.8-10.8) K/uL RBC (4.40-5.90) Mil/uL Hgb (12.0-18.0) g/dL Hct (35.0-51.0) % MCV (80.0-94.0) fl MCH (27.0-31.0) pg MCHC (33.0-37.0) g/dL RDW (11.5-14.5) % Plt Count (130-400) K/uL MPV (7.2-11.7) fl Neut % (Auto) (50.0-75.0) % Lymph % (Auto) (20.0-40.0) % Ida % (Auto) (0.0-10.0) % Eos % (Auto) (0.0-4.0) % Baso % (Auto) (0.0-2.0) % Neut # (1.8-7.0) K/uL Lymph # (1.0-4.3) K/uL Ida # (0.0-0.8) K/uL Eos # (0.0-0.7) K/uL Baso # (0.0-0.2) K/uL Neutrophils % (Manual) (42-75) % Band Neutrophils % (0-2) % Lymphocytes % (Manual) (20-50) % Reactive Lymphs % (0-0) % Monocytes % (Manual) (0-10) % Basophils % (Manual) (0-2) % Platelet Estimate (NORMAL) PT (9.6-11.2) SECONDS INR (0.92-1.08) APTT (23.3-32.5) SECONDS pCO2 (35-45) mm/Hg pO2 (80-100) mm/Hg HCO3 (21-28) mmol/L ABG pH (7.35-7.45) ABG Total CO2 (22-28) mmol/L ABG O2 Saturation (95-98) % ABG Base Excess (-2.0-3.0) mmol/L Mo Test ABG Potassium (3.6-5.2) mmol/L A-a O2 Difference mm/Hg Glucose (75-110) mg/dL Lactate (0.7-2.1) mmol/L Vent Mode Mechanical Rate FiO2 % Tidal Volume PEEP Blood Gas Notified Time Sodium (132-148) mmol/l Potassium (3.6-5.0) MMOL/L Chloride (98-107) mmol/L Carbon Dioxide (22-30) mmol/L Anion Gap (10-20) BUN (9-20) mg/dl Creatinine (0.8-1.5) mg/dL Est GFR ( Amer) Est GFR (Non-Af Amer) POC Glucose (mg/dL) 238 H 284 H (65-110) mg/dL Random Glucose (75-110) mg/dL Lactic Acid (0.7-2.1) MMOL/L Calcium (8.4-10.2) mg/dL Phosphorus (2.5-4.5) mg/dl Magnesium (1.6-2.3) MG/DL Total Bilirubin (0.2-1.3) mg/dl AST (17-59) U/L ALT (21-72) U/L Alkaline Phosphatase (38-126) U/L Troponin I 0.0200 (0.00-0.120) ng/mL NT-Pro-B Natriuret Pep (0-900) pg/ml Total Protein (6.3-8.2) G/DL Albumin (3.5-5.0) g/dL Globulin (2.2-3.9) gm/dL Albumin/Globulin Ratio (1.0-2.1) Arterial Blood Potassium (3.6-5.2) mmol/L 12/18/16 12/18/16 12/18/16 Range/Units 05:26 04:40 04:40 WBC (4.8-10.8) K/uL RBC (4.40-5.90) Mil/uL Hgb (12.0-18.0) g/dL Hct (35.0-51.0) % MCV (80.0-94.0) fl MCH (27.0-31.0) pg MCHC (33.0-37.0) g/dL RDW (11.5-14.5) % Plt Count (130-400) K/uL MPV (7.2-11.7) fl Neut % (Auto) (50.0-75.0) % Lymph % (Auto) (20.0-40.0) % Ida % (Auto) (0.0-10.0) % Eos % (Auto) (0.0-4.0) % Baso % (Auto) (0.0-2.0) % Neut # (1.8-7.0) K/uL Lymph # (1.0-4.3) K/uL Ida # (0.0-0.8) K/uL Eos # (0.0-0.7) K/uL Baso # (0.0-0.2) K/uL Neutrophils % (Manual) (42-75) % Band Neutrophils % (0-2) % Lymphocytes % (Manual) (20-50) % Reactive Lymphs % (0-0) % Monocytes % (Manual) (0-10) % Basophils % (Manual) (0-2) % Platelet Estimate (NORMAL) PT 12.9 H (9.6-11.2) SECONDS INR 1.24 H (0.92-1.08) APTT 26.6 (23.3-32.5) SECONDS pCO2 28 L (35-45) mm/Hg pO2 78 L (80-100) mm/Hg HCO3 25.8 (21-28) mmol/L ABG pH 7.52 H (7.35-7.45) ABG Total CO2 23.8 (22-28) mmol/L ABG O2 Saturation 98.7 H (95-98) % ABG Base Excess 1.1 (-2.0-3.0) mmol/L Mo Test Yes ABG Potassium 3.8 (3.6-5.2) mmol/L A-a O2 Difference 244.0 mm/Hg Glucose 343 H (75-110) mg/dL Lactate 1.9 (0.7-2.1) mmol/L Vent Mode A/c Mechanical Rate 14 FiO2 50.0 % Tidal Volume 500 PEEP 5 Blood Gas Notified Time 533 Sodium 142.0 (132-148) mmol/l Potassium (3.6-5.0) MMOL/L Chloride 114.0 H (98-107) mmol/L Carbon Dioxide (22-30) mmol/L Anion Gap (10-20) BUN (9-20) mg/dl Creatinine (0.8-1.5) mg/dL Est GFR ( Amer) Est GFR (Non-Af Amer) POC Glucose (mg/dL) (65-110) mg/dL Random Glucose (75-110) mg/dL Lactic Acid 1.9 (0.7-2.1) MMOL/L Calcium (8.4-10.2) mg/dL Phosphorus (2.5-4.5) mg/dl Magnesium (1.6-2.3) MG/DL Total Bilirubin (0.2-1.3) mg/dl AST (17-59) U/L ALT (21-72) U/L Alkaline Phosphatase (38-126) U/L Troponin I (0.00-0.120) ng/mL NT-Pro-B Natriuret Pep (0-900) pg/ml Total Protein (6.3-8.2) G/DL Albumin (3.5-5.0) g/dL Globulin (2.2-3.9) gm/dL Albumin/Globulin Ratio (1.0-2.1) Arterial Blood Potassium 3.8 (3.6-5.2) mmol/L 12/18/16 12/18/16 12/17/16 Range/Units 04:40 03:01 22:32 WBC 15.1 H (4.8-10.8) K/uL RBC 3.84 L (4.40-5.90) Mil/uL Hgb 12.1 (12.0-18.0) g/dL Hct 37.0 (35.0-51.0) % MCV 96.4 H D (80.0-94.0) fl MCH 31.4 H (27.0-31.0) pg MCHC 32.6 L (33.0-37.0) g/dL RDW 13.5 (11.5-14.5) % Plt Count 193 (130-400) K/uL MPV 9.6 (7.2-11.7) fl Neut % (Auto) 88.7 H (50.0-75.0) % Lymph % (Auto) 5.1 L (20.0-40.0) % Ida % (Auto) 5.9 (0.0-10.0) % Eos % (Auto) 0.0 (0.0-4.0) % Baso % (Auto) 0.3 (0.0-2.0) % Neut # 13.4 H (1.8-7.0) K/uL Lymph # 0.8 L (1.0-4.3) K/uL Ida # 0.9 H (0.0-0.8) K/uL Eos # 0.0 (0.0-0.7) K/uL Baso # 0.0 (0.0-0.2) K/uL Neutrophils % (Manual) 80 H (42-75) % Band Neutrophils % 6 H (0-2) % Lymphocytes % (Manual) 7 L (20-50) % Reactive Lymphs % 2 H (0-0) % Monocytes % (Manual) 4 (0-10) % Basophils % (Manual) 1 (0-2) % Platelet Estimate Normal (NORMAL) PT (9.6-11.2) SECONDS INR (0.92-1.08) APTT (23.3-32.5) SECONDS pCO2 (35-45) mm/Hg pO2 (80-100) mm/Hg HCO3 (21-28) mmol/L ABG pH (7.35-7.45) ABG Total CO2 (22-28) mmol/L ABG O2 Saturation (95-98) % ABG Base Excess (-2.0-3.0) mmol/L Mo Test ABG Potassium (3.6-5.2) mmol/L A-a O2 Difference mm/Hg Glucose (75-110) mg/dL Lactate (0.7-2.1) mmol/L Vent Mode Mechanical Rate FiO2 % Tidal Volume PEEP Blood Gas Notified Time Sodium 144 (132-148) mmol/l Potassium 4.0 (3.6-5.0) MMOL/L Chloride 110 H (98-107) mmol/L Carbon Dioxide 23 (22-30) mmol/L Anion Gap 15 (10-20) BUN 26 H (9-20) mg/dl Creatinine 1.5 (0.8-1.5) mg/dL Est GFR ( Amer) 54 Est GFR (Non-Af Amer) 45 POC Glucose (mg/dL) 284 H (65-110) mg/dL Random Glucose 351 H (75-110) mg/dL Lactic Acid (0.7-2.1) MMOL/L Calcium 7.7 L (8.4-10.2) mg/dL Phosphorus (2.5-4.5) mg/dl Magnesium (1.6-2.3) MG/DL Total Bilirubin 0.7 (0.2-1.3) mg/dl AST 23 (17-59) U/L ALT 39 (21-72) U/L Alkaline Phosphatase 83 (38-126) U/L Troponin I 0.0240 (0.00-0.120) ng/mL NT-Pro-B Natriuret Pep (0-900) pg/ml Total Protein 5.0 L (6.3-8.2) G/DL Albumin 2.4 L (3.5-5.0) g/dL Globulin 2.7 (2.2-3.9) gm/dL Albumin/Globulin Ratio 0.9 L (1.0-2.1) Arterial Blood Potassium (3.6-5.2) mmol/L 12/17/16 12/17/16 12/17/16 Range/Units 19:37 16:20 13:54 WBC (4.8-10.8) K/uL RBC (4.40-5.90) Mil/uL Hgb (12.0-18.0) g/dL Hct (35.0-51.0) % MCV (80.0-94.0) fl MCH (27.0-31.0) pg MCHC (33.0-37.0) g/dL RDW (11.5-14.5) % Plt Count (130-400) K/uL MPV (7.2-11.7) fl Neut % (Auto) (50.0-75.0) % Lymph % (Auto) (20.0-40.0) % Ida % (Auto) (0.0-10.0) % Eos % (Auto) (0.0-4.0) % Baso % (Auto) (0.0-2.0) % Neut # (1.8-7.0) K/uL Lymph # (1.0-4.3) K/uL Ida # (0.0-0.8) K/uL Eos # (0.0-0.7) K/uL Baso # (0.0-0.2) K/uL Neutrophils % (Manual) (42-75) % Band Neutrophils % (0-2) % Lymphocytes % (Manual) (20-50) % Reactive Lymphs % (0-0) % Monocytes % (Manual) (0-10) % Basophils % (Manual) (0-2) % Platelet Estimate (NORMAL) PT (9.6-11.2) SECONDS INR (0.92-1.08) APTT (23.3-32.5) SECONDS pCO2 (35-45) mm/Hg pO2 (80-100) mm/Hg HCO3 (21-28) mmol/L ABG pH (7.35-7.45) ABG Total CO2 (22-28) mmol/L ABG O2 Saturation (95-98) % ABG Base Excess (-2.0-3.0) mmol/L Mo Test ABG Potassium (3.6-5.2) mmol/L A-a O2 Difference mm/Hg Glucose (75-110) mg/dL Lactate (0.7-2.1) mmol/L Vent Mode Mechanical Rate FiO2 % Tidal Volume PEEP Blood Gas Notified Time Sodium 147 (132-148) mmol/l Potassium 5.2 H (3.6-5.0) MMOL/L Chloride 111 H (98-107) mmol/L Carbon Dioxide 28 (22-30) mmol/L Anion Gap 13 (10-20) BUN 25 H (9-20) mg/dl Creatinine 1.8 H (0.8-1.5) mg/dL Est GFR ( Amer) 44 Est GFR (Non-Af Amer) 36 POC Glucose (mg/dL) 146 H (65-110) mg/dL Random Glucose 121 H (75-110) mg/dL Lactic Acid (0.7-2.1) MMOL/L Calcium 7.9 L (8.4-10.2) mg/dL Phosphorus 5.2 H (2.5-4.5) mg/dl Magnesium 2.0 (1.6-2.3) MG/DL Total Bilirubin 0.6 (0.2-1.3) mg/dl AST 30 (17-59) U/L ALT 39 (21-72) U/L Alkaline Phosphatase 85 (38-126) U/L Troponin I 0.0240 0.0230 (0.00-0.120) ng/mL NT-Pro-B Natriuret Pep 748 (0-900) pg/ml Total Protein 5.1 L (6.3-8.2) G/DL Albumin 2.5 L (3.5-5.0) g/dL Globulin 2.6 (2.2-3.9) gm/dL Albumin/Globulin Ratio 1.0 (1.0-2.1) Arterial Blood Potassium (3.6-5.2) mmol/L Laboratory Results - last 24 hr 12/17/16 12/17/16 12/17/16 13:54 16:20 19:37 WBC RBC Hgb Hct MCV MCH MCHC RDW Plt Count MPV Neut % (Auto) Lymph % (Auto) Ida % (Auto) Eos % (Auto) Baso % (Auto) Neut # Lymph # Ida # Eos # Baso # Neutrophils % (Manual) Band Neutrophils % Lymphocytes % (Manual) Reactive Lymphs % Monocytes % (Manual) Basophils % (Manual) Platelet Estimate PT INR APTT pCO2 pO2 HCO3 ABG pH ABG Total CO2 ABG O2 Saturation ABG Base Excess Mo Test ABG Potassium A-a O2 Difference Glucose Lactate Vent Mode Mechanical Rate FiO2 Tidal Volume PEEP Blood Gas Notified Time Sodium 147 Potassium 5.2 H Chloride 111 H Carbon Dioxide 28 Anion Gap 13 BUN 25 H Creatinine 1.8 H Est GFR ( Amer) 44 Est GFR (Non-Af Amer) 36 POC Glucose (mg/dL) 146 H Random Glucose 121 H Lactic Acid Calcium 7.9 L Phosphorus 5.2 H Magnesium 2.0 Total Bilirubin 0.6 AST 30 ALT 39 Alkaline Phosphatase 85 Troponin I 0.0230 0.0240 NT-Pro-B Natriuret Pep 748 Total Protein 5.1 L Albumin 2.5 L Globulin 2.6 Albumin/Globulin Ratio 1.0 Arterial Blood Potassium 12/17/16 12/18/16 12/18/16 22:32 03:01 04:40 WBC 15.1 H RBC 3.84 L Hgb 12.1 Hct 37.0 MCV 96.4 H D MCH 31.4 H MCHC 32.6 L RDW 13.5 Plt Count 193 MPV 9.6 Neut % (Auto) 88.7 H Lymph % (Auto) 5.1 L Ida % (Auto) 5.9 Eos % (Auto) 0.0 Baso % (Auto) 0.3 Neut # 13.4 H Lymph # 0.8 L Ida # 0.9 H Eos # 0.0 Baso # 0.0 Neutrophils % (Manual) 80 H Band Neutrophils % 6 H Lymphocytes % (Manual) 7 L Reactive Lymphs % 2 H Monocytes % (Manual) 4 Basophils % (Manual) 1 Platelet Estimate Normal PT INR APTT pCO2 pO2 HCO3 ABG pH ABG Total CO2 ABG O2 Saturation ABG Base Excess Mo Test ABG Potassium A-a O2 Difference Glucose Lactate Vent Mode Mechanical Rate FiO2 Tidal Volume PEEP Blood Gas Notified Time Sodium 144 Potassium 4.0 Chloride 110 H Carbon Dioxide 23 Anion Gap 15 BUN 26 H Creatinine 1.5 Est GFR ( Amer) 54 Est GFR (Non-Af Amer) 45 POC Glucose (mg/dL) 284 H Random Glucose 351 H Lactic Acid Calcium 7.7 L Phosphorus Magnesium Total Bilirubin 0.7 AST 23 ALT 39 Alkaline Phosphatase 83 Troponin I 0.0240 NT-Pro-B Natriuret Pep Total Protein 5.0 L Albumin 2.4 L Globulin 2.7 Albumin/Globulin Ratio 0.9 L Arterial Blood Potassium 12/18/16 12/18/16 12/18/16 04:40 04:40 05:26 WBC RBC Hgb Hct MCV MCH MCHC RDW Plt Count MPV Neut % (Auto) Lymph % (Auto) Ida % (Auto) Eos % (Auto) Baso % (Auto) Neut # Lymph # Ida # Eos # Baso # Neutrophils % (Manual) Band Neutrophils % Lymphocytes % (Manual) Reactive Lymphs % Monocytes % (Manual) Basophils % (Manual) Platelet Estimate PT 12.9 H INR 1.24 H APTT 26.6 pCO2 28 L pO2 78 L HCO3 25.8 ABG pH 7.52 H ABG Total CO2 23.8 ABG O2 Saturation 98.7 H ABG Base Excess 1.1 Mo Test Yes ABG Potassium 3.8 A-a O2 Difference 244.0 Glucose 343 H Lactate 1.9 Vent Mode A/c Mechanical Rate 14 FiO2 50.0 Tidal Volume 500 PEEP 5 Blood Gas Notified Time 533 Sodium 142.0 Potassium Chloride 114.0 H Carbon Dioxide Anion Gap BUN Creatinine Est GFR ( Amer) Est GFR (Non-Af Amer) POC Glucose (mg/dL) Random Glucose Lactic Acid 1.9 Calcium Phosphorus Magnesium Total Bilirubin AST ALT Alkaline Phosphatase Troponin I NT-Pro-B Natriuret Pep Total Protein Albumin Globulin Albumin/Globulin Ratio Arterial Blood Potassium 3.8 12/18/16 12/18/16 12/18/16 05:52 10:30 11:01 WBC RBC Hgb Hct MCV MCH MCHC RDW Plt Count MPV Neut % (Auto) Lymph % (Auto) Ida % (Auto) Eos % (Auto) Baso % (Auto) Neut # Lymph # Ida # Eos # Baso # Neutrophils % (Manual) Band Neutrophils % Lymphocytes % (Manual) Reactive Lymphs % Monocytes % (Manual) Basophils % (Manual) Platelet Estimate PT INR APTT pCO2 pO2 HCO3 ABG pH ABG Total CO2 ABG O2 Saturation ABG Base Excess Mo Test ABG Potassium A-a O2 Difference Glucose Lactate Vent Mode Mechanical Rate FiO2 Tidal Volume PEEP Blood Gas Notified Time Sodium Potassium Chloride Carbon Dioxide Anion Gap BUN Creatinine Est GFR ( Amer) Est GFR (Non-Af Amer) POC Glucose (mg/dL) 284 H 238 H Random Glucose Lactic Acid Calcium Phosphorus Magnesium Total Bilirubin AST ALT Alkaline Phosphatase Troponin I 0.0200 NT-Pro-B Natriuret Pep Total Protein Albumin Globulin Albumin/Globulin Ratio Arterial Blood Potassium Fingerstick Blood Sugar Results: 238 Review of Systems - Review of Systems Systems not reviewed;Unavailable: Intubated - Integumentary Integumentary: Other (Right groin triple lumen catheter site clean with no surrounding erythema noted. ) Assessment/Plan - Assessment and Plan (Free Text) Assessment: 81 y/o M with PMH including Hypertension, NIDDM2 and recurrent pneumonia presented from snf for respiratory distress and intubated by paramedics prior to ED arrival. In ED, patient was re-intubated after ETT was noted to be out of place. Patient was subsequently admitted with acute hypoxemic hypercapneic respiratory failure and sepsis with shock. Plan: Acute Hypoxemic Hypercapneic Respiratory Failure -Etiology likely secondary to aspiration event vs pneumonia -Patient intubated on 12/17/16. Currently on mechanical ventilation, day 2. -Patient initially started on RR: 14/TV: 500ml/PEEP: 5/FiO2: 50% -Current vent settings: 10/450/5/40% with patient satting at 100% -Will follow repeat ABG Pneumonia -R/O aspiration pneumonia -CXR demonstrates persistent primarily lower lobe infiltrates with interval improvement from prior study -Sputum gram stain collected on 12/17 reveals few gram positive cocci in changes, few gram negative rods. Culture pending. -On empiric Vancomycin 1gm IV daily, Zosyn 3.375gm IV Q6h, Ciprofloxacin 400mg IV Q12h -Pulmonology consulted Sepsis with shock -Started on levophed drip in ED and titrated from 15 mcg/min to 2.5mcg/min currently -Initial 3 liter NS bolus given in ED -VBG lactate 1.7 > 1.9 -Urine culture and blood culture x2, no growth to date -Empiric antibiotics started on 12/17/16. Vancomycin 1gm IV daily, Zosyn 3.375gm IV Q6h, Ciprofloxacin 400mg IV Q12h -IVF running at 75cc/hr Altered Mental Status -Patient has reported baseline dementia with likely delirium -CT head reveals no acute intracranial hemorrhage and mild to moderate chronic white matter ischemic changes. -Troponin negative x4 -Will hold psych meds with [employer] effects including Risperdal, Restoril, neurontin DVT Prophylaxis -Lovenox 30mg SC daily -SCDs <Raleigh Cedeno - Last Filed: 12/18/16 18:50> CCU Subjective - Physician Review Subjective (Free Text): Attestation: Patient seen and examined at the bedside with Resident Dr. Sharon Segura; and I agree with his outline of plans and management documented below as discussed on AM rounds reflecting my review of all applicable clinical data, and participation in the care of the patient throughout the day in ICU; today, December 18, 2016. Time spent with this patient did not overlap with any other provider's medical or critical care time. Additionally the code selected for the services rendered in this note includes the time spent: talking to the patients family, associated physicians and reviewing hospital data/results not listed here which extended to a total of 30 minutes.
[2016-12-18] MEDS: Enoxaparin 30 mg Syringe SC SCH (17:17)
[2016-12-18] MEDS ORDERED: Sodium Chloride 0.9% 500 ML IV ONE (19:15)
[2016-12-19] MEDS: Piperacillin/Tazobact 3.375 GM in Sodium Chloride 0.9% 100 ML IVPB SCH ×4 (03:55→22:16)
[2016-12-19 05:22] LABS: BASO % 0.3 % (0.0-2.0); EOS # 0.6 K/uL (0.0-0.7); EOS % 5.6 % (0.0-4.0); HEMATOCRIT 33.4 % (35.0-51.0); LYMPH % 9.3 % (20.0-40.0); MEAN CORPUSCULAR HGB CONC 32.3 g/dL (33.0-37.0); MEAN PLATELET VOLUME 9.5 fl (7.2-11.7); MONO # 1.1 K/uL (0.0-0.8); MONO % 9.9 % (0.0-10.0); NEUT # 8.3 K/uL (1.8-7.0); NEUT % 74.9 % (50.0-75.0); NRBC % 0.1 % (0.0-0.0); RED CELL DISTRIBUTION WIDTH 13.5 % (11.5-14.5); WHITE BLOOD COUNT 11.1 K/uL (4.8-10.8)
[2016-12-19 05:37] LABS: ALB/GLOB RATIO 0.8 (1.0-2.1); ALKALINE PHOSPHATASE 82 U/L (38-126); ALT/SGPT 36 U/L (21-72); AST/SGOT 22 U/L (17-59); BILIRUBIN,TOTAL 0.4 mg/dl (0.2-1.3); BLOOD UREA NITROGEN 22 mg/dl (9-20); CALCIUM 7.7 mg/dL (8.4-10.2); CARBON DIOXIDE 27 mmol/L (22-30); CHLORIDE 113 mmol/L (98-107); GFR AFRICAN-AMERICAN > 60; GLUCOSE,RANDOM 213 mg/dL (75-110); POTASSIUM 3.4 MMOL/L (3.6-5.0); SODIUM 146 mmol/l (132-148); TOTAL PROTEIN 4.5 G/DL (6.3-8.2)
[2016-12-19 05:44] LABS: ABG ALLEN TEST YES; ABG MECHANICAL RATE 10; ARTERIAL BLOOD GAS HCO3 24.5 mmol/L (21-28); ARTERIAL BLOOD GAS MODE A/C; ARTERIAL BLOOD GAS O2 CAPACITY 15.7 mL/dL (16-24); ARTERIAL BLOOD GAS O2 CONTENT 15.6 ML/dL (15-23); ARTERIAL BLOOD GAS PH 7.37 (7.35-7.45); ARTERIAL BLOOD GAS PO2 97 mm/Hg (80-100); ARTERIAL BLOOD HGB O2 SAT 95.9 % (95.0-98.0); ATERIAL BLOOD GAS PEEP 5; CARBOXYHEMOGLOBIN 1.5 % (0.5-1.5); HHB 0.8 % (0.0-5.0); METHEMOGLOBIN 1.8 % (0.0-3.0)
--- NOTE | 2016-12-19 07:24 | CP.PCM.PN ---
Subjective - Date & Time of Evaluation Date of Evaluation: 12/19/16 Time of Evaluation: 07:24 - Subjective Subjective: remains on vents, was initially removed from levophed but htis had to be restarted. no distress. family updated. bw noted. case d/c w/ dr reyes. Objective - Vital Signs/Intake and Output Vital Signs (last 24 hours): Temp Pulse Resp BP Pulse Ox 98.8 F 81 12 101/58 L 100 12/19/16 04:00 12/19/16 06:00 12/19/16 06:00 12/19/16 06:00 12/19/16 06:00 Intake and Output: 12/19/16 12/19/16 06:59 18:59 Intake Total 2224 Output Total 300 Balance 1924 - Medications Medications: Current Medications Acetaminophen (Tylenol 650mg/20.3ml Solution Ud) 650 mg PO Q4 PRN PRN Reason: Temperature Last Admin: 12/17/16 23:54 Dose: 650 mg Enoxaparin Sodium (Lovenox) 30 mg SC DAILY MALA PRN Reason: Protocol Last Admin: 12/18/16 17:17 Dose: 30 mg Ciprofloxacin (Cipro 400mg/200ml Dsw) 400 mg in 200 mls @ 200 mls/hr IVPB Q12 MALA Last Admin: 12/18/16 20:09 Dose: 200 mls/hr Vancomycin HCl 1 gm/ Sodium (Chloride) 250 mls @ 166.667 mls/hr IVPB DAILY MALA Last Admin: 12/18/16 10:11 Dose: 166.667 mls/hr Piperacillin Sod/Tazobactam (Sod 3.375 gm/ Sodium Chloride) 100 mls @ 100 mls/ hr IVPB Q6 MALA Last Admin: 12/19/16 03:55 Dose: 100 mls/hr Norepinephrine Bitartrate 4 mg (/ Dextrose) 254 mls @ 19.05 mls/hr IV .[id number] MALA; 5 MCG/MIN PRN Reason: Protocol Last Titration: 12/19/16 05:04 Dose: 5 mcg/min, 19.05 mls/hr Lorazepam (Ativan) 1 mg IVP Q6 PRN PRN Reason: Agitation Last Admin: 12/18/16 13:01 Dose: 1 mg Morphine Sulfate (Morphine) 4 mg IVP Q4 PRN PRN Reason: Agitation Last Admin: 12/19/16 00:55 Dose: 4 mg Pantoprazole Sodium (Protonix Inj) 40 mg IVP DAILY MALA Last Admin: 12/18/16 10:09 Dose: 40 mg - Labs Labs: 12/19/16 04:35 12/19/16 04:35 PT 12.9 SECONDS (9.6-11.2) H 12/18/16 04:40 INR 1.24 (0.92-1.08) H 12/18/16 04:40 APTT 26.6 SECONDS (23.3-32.5) 12/18/16 04:40 - Constitutional Appears: Well, Non-toxic, No Acute Distress - Head Exam Head Exam: ATRAUMATIC, NORMAL INSPECTION, NORMOCEPHALIC - Eye Exam Eye Exam: EOMI, Normal appearance, PERRL Pupil Exam: NORMAL ACCOMODATION, PERRL - ENT Exam ENT Exam: Mucous Membranes Moist, Normal Exam - Neck Exam Neck Exam: Full ROM, Normal Inspection. absent: Lymphadenopathy - Respiratory Exam Respiratory Exam: Clear to Ausculation Bilateral, NORMAL BREATHING PATTERN Additional comments: vented - Cardiovascular Exam Cardiovascular Exam: REGULAR RHYTHM, RRR, +S1, +S2. absent: Murmur - GI/Abdominal Exam GI & Abdominal Exam: Soft, Normal Bowel Sounds. absent: Tenderness - Extremities Exam Extremities Exam: Full ROM, Normal Capillary Refill, Normal Inspection. absent : Joint Swelling, Pedal Edema - Back Exam Back Exam: NORMAL INSPECTION - Neurological Exam Neurological Exam: Alert, Awake, CN II-XII Intact, Normal Gait, Oriented x3 - Psychiatric Exam Psychiatric exam: Normal Affect, Normal Mood - Skin Skin Exam: Dry, Intact, Normal Color, Warm Assessment and Plan (1) Pneumonia Status: Acute (2) Respiratory failure Status: Acute (3) Altered mental status Status: Acute (4) DVT prophylaxis Status: Acute - Assessment and Plan (Free Text) Assessment: (1) Pneumonia Assessment and Plan: cipro, vanc, zosyn pulm vent support wean as giuliano sedate as needed monitor bw Status: Acute (2) Respiratory failure Assessment and Plan: vent, pulm, icu care Status: Acute (3) Altered mental status Status: Acute (4) DVT prophylaxis Assessment and Plan: scd and ae hose lovenox as per icu Status: Acute
[2016-12-19] MEDS ORDERED: Sodium Chloride 0.9% 500 ML IV ONE (07:59)
[2016-12-19] MEDS ORDERED: Potassium Chloride 20 mEq/15 ml LIQ UD PO ONE (08:01)
[2016-12-19] MEDS: Ciprofloxacin 400mg/200ml D5W 400 MG/200 ML BAG IVPB SCH ×2 (08:08→22:15)
[2016-12-19] MEDS: Enoxaparin 30 mg Syringe SC SCH (08:09)
[2016-12-19] MEDS: Sodium Chloride 0.9% 1,000 ML IV SCH ×2 (08:11→22:28)
--- NOTE | 2016-12-19 10:47 | RAD ---
PROCEDURE: CHEST RADIOGRAPH, 1 VIEW HISTORY: pt intubated COMPARISON: 12/18/2016 FINDINGS: LUNGS: In situ ETT, tip of which lies approximately 3.9 cm above lex. There is also an in situ OGT, the tip of which is poorly seen . Bibasilar atelectasis and or infiltrates and bilateral effusions. PLEURA: No pneumothorax or pleural fluid seen. CARDIOVASCULAR: Cardiomegaly. OSSEOUS STRUCTURES: Degenerative changes both shoulder girdles. Mild dextroscoliosis of the mid to lower thoracic spine. VISUALIZED UPPER ABDOMEN: Normal. OTHER FINDINGS: None. IMPRESSION: In situ ETT, tip of which lies approximately 3.9 cm above lex. There is also an in situ OGT, the tip of which is poorly seen . Bibasilar atelectasis and or infiltrates and bilateral effusions.
--- NOTE | 2016-12-19 12:28 | CP.PCM.PN ---
Subjective - Date & Time of Evaluation Date of Evaluation: 12/19/16 Time of Evaluation: 12:28 - Subjective Subjective: STILL INTUBATED AND BEING VENTILATED MORE AWAKE AND ALERT BP IMPROVING MINIMAL URINE OUTPUT Objective - Vital Signs/Intake and Output Vital Signs (last 24 hours): Temp Pulse Resp BP Pulse Ox 98.9 F 91 H 18 114/76 100 12/19/16 11:00 12/19/16 11:00 12/19/16 11:00 12/19/16 11:00 12/19/16 11:00 Intake and Output: 12/19/16 12/19/16 06:59 18:59 Intake Total 2224 1418 Output Total 300 100 Balance 1924 1318 - Medications Medications: Current Medications Acetaminophen (Tylenol 650mg/20.3ml Solution Ud) 650 mg PO Q4 PRN PRN Reason: Temperature Last Admin: 12/17/16 23:54 Dose: 650 mg Enoxaparin Sodium (Lovenox) 30 mg SC DAILY MALA PRN Reason: Protocol Last Admin: 12/19/16 08:09 Dose: 30 mg Ciprofloxacin (Cipro 400mg/200ml Dsw) 400 mg in 200 mls @ 200 mls/hr IVPB Q12 MALA Last Admin: 12/19/16 08:08 Dose: 200 mls/hr Vancomycin HCl 1 gm/ Sodium (Chloride) 250 mls @ 166.667 mls/hr IVPB DAILY MALA Last Admin: 12/19/16 08:05 Dose: 166.667 mls/hr Piperacillin Sod/Tazobactam (Sod 3.375 gm/ Sodium Chloride) 100 mls @ 100 mls/ hr IVPB Q6 MALA Last Admin: 12/19/16 10:30 Dose: 100 mls/hr Norepinephrine Bitartrate 4 mg (/ Dextrose) 254 mls @ 19.05 mls/hr IV .[id number] MALA; 5 MCG/MIN PRN Reason: Protocol Last Admin: 12/19/16 08:10 Dose: 7.5 mcg/min, 28.57 mls/hr Sodium Chloride (Sodium Chloride 0.9%) 1,000 mls @ 150 mls/hr IV .[id number] MALA Stop: 12/20/16 08:00 Last Admin: 12/19/16 08:11 Dose: 150 mls/hr Lorazepam (Ativan) 1 mg IVP Q6 PRN PRN Reason: Agitation Last Admin: 12/18/16 13:01 Dose: 1 mg Morphine Sulfate (Morphine) 4 mg IVP Q4 PRN PRN Reason: Agitation Last Admin: 12/19/16 00:55 Dose: 4 mg Pantoprazole Sodium (Protonix Inj) 40 mg IVP DAILY MALA Last Admin: 12/19/16 08:14 Dose: 40 mg - Labs Labs: 12/19/16 04:35 12/19/16 04:35 PT 12.9 SECONDS (9.6-11.2) H 12/18/16 04:40 INR 1.24 (0.92-1.08) H 12/18/16 04:40 APTT 26.6 SECONDS (23.3-32.5) 12/18/16 04:40 - Constitutional Appears: Chronically Ill - Head Exam Head Exam: ATRAUMATIC, NORMAL INSPECTION, NORMOCEPHALIC - Eye Exam Eye Exam: EOMI, Normal appearance, PERRL Pupil Exam: NORMAL ACCOMODATION, PERRL - ENT Exam ENT Exam: Mucous Membranes Moist, Normal Exam - Neck Exam Neck Exam: Full ROM, Normal Inspection. absent: Lymphadenopathy - Respiratory Exam Respiratory Exam: Rales, NORMAL BREATHING PATTERN Additional comments: INTUBATED - Cardiovascular Exam Cardiovascular Exam: REGULAR RHYTHM, +S1, +S2. absent: Murmur - GI/Abdominal Exam GI & Abdominal Exam: Soft, Normal Bowel Sounds. absent: Tenderness - Rectal Exam Rectal Exam: NORMAL INSPECTION - Extremities Exam Extremities Exam: Full ROM, Normal Capillary Refill, Normal Inspection. absent : Joint Swelling, Pedal Edema - Back Exam Back Exam: NORMAL INSPECTION - Neurological Exam Neurological Exam: Alert, Awake, CN II-XII Intact, Normal Gait, Oriented x3 - Psychiatric Exam Psychiatric exam: Normal Affect, Normal Mood - Skin Skin Exam: Dry, Intact, Normal Color, Warm Assessment and Plan - Assessment and Plan (Free Text) Assessment: RESPIRATORY FAILURE SEPTIC SHOCK Plan: CONTINUE IV ANTIBIOTICS AND VENT CARE CONTINUE ATTEMPTS TO EXTUBATE
--- NOTE | 2016-12-19 14:29 | CP.CCUPN ---
<Kendell Seguracarol - Last Filed: 12/19/16 13:41> CCU Subjective - Physician Review Subjective (Free Text): 12/19/16 10:45 Patient seen and examined at bedside with attending during morning rounds. He required restarting of levophed overnight at 5mcg/min and a 500ml IVF bolus due to systolic bp of 78. BP improved to a systolic of 110's and remains stable. He tolerated a spontaneous breathing trial from 09:30 to 10:30 with a respiratory rate in the low 20s at 35% FiO2. Patient tolerated well, however mental status has been a limiting factor. He is currently on mechanical ventilation settings of 10/450/5/40% and is saturating at 100%. Afebrile for over 24hrs. CCU Objective - Vital Signs / Intake & Output Vital Signs (Last 4 hours): Vital Signs Temp Pulse Resp BP Pulse Ox 12/19/16 11:00 98.9 F 91 H 18 114/76 100 12/19/16 10:00 91 H 23 103/55 L 100 Intake and Output (Last 8hrs): Intake & Output 12/18/16 12/19/16 12/19/16 22:59 06:59 14:59 Intake Total 2070 1189 1418 Output Total 300 300 100 Balance 5794 650 1172 Intake: IV 5577 547 7734 Intake, Piggyback 440 264 20 Oral 120 Tube Feeding 150 400 120 Output: Urine 300 300 100 Urethral (Webb) 300 300 100 Other: # Bowel Movements 1 - Physical Exam Head: Positive for: Atraumatic, Normocephalic Pupils: Positive for: PERRL Mouth: Positive for: Dry Respiratory/Chest: Positive for: Other (On mechanical ventilation. B/L air entry present with low pitched rhonchii appreciated b/l. No wheezes audible. ). Negative for: Accessory Muscle Use Cardiovascular: Positive for: Regular Rate and Rhythm. Negative for: Murmurs Abdomen: Positive for: Normal Bowel Sounds. Negative for: Distention, Mass/ Organomegaly Lower Extremity: Positive for: Other (Left heel chronic eschar formation present measuring approximately [id number] with no active bleeding or drainage. ) . Negative for: Edema Neurological: Positive for: Other (Moving extremities spontaneously.) Skin: Positive for: Warm, Dry, Other (Right groin TLC site clean and dry with no surrounding erythema. ) Psychiatric: Positive for: Other (Alert at times but non-verbal on vent and unable to follow simple commands. ) - Medications Active Medications: Active Medications Generic Name Dose Route Start Last Admin Trade Name Freq PRN Reason Stop Dose Admin Acetaminophen 650 mg 12/17/16 23:08 12/17/16 23:54 Tylenol 650mg/20.3ml Solution Ud PO 650 mg Q4 PRN Administration Temperature Enoxaparin Sodium 30 mg 12/18/16 16:45 12/19/16 08:09 Lovenox SC 30 mg DAILY MALA Administration Protocol Ciprofloxacin 400 mg in 200 mls @ 200 mls/hr 12/17/16 21:00 12/19/16 08:08 Cipro 400mg/200ml Dsw IVPB 200 mls/hr Q12 MALA Administration Vancomycin HCl 1 gm/ Sodium 250 mls @ 166.667 mls/hr 12/18/16 09:00 12/19/16 08:05 Chloride IVPB 166.667 mls/hr DAILY MALA Administration Piperacillin Sod/Tazobactam 100 mls @ 100 mls/hr 12/17/16 16:00 12/19/16 10: 30 Sod 3.375 gm/ Sodium Chloride IVPB 100 mls/hr Q6 MALA Administration Norepinephrine Bitartrate 4 mg 254 mls @ 19.05 mls/hr 12/18/16 20:00 08:10 / Dextrose IV 7.5 mcg/min .[id number] MALA 28.57 mls/hr Protocol Administration 5 MCG/MIN Sodium Chloride 1,000 mls @ 150 mls/hr 12/19/16 08:00 12/19/16 08:11 Sodium Chloride 0.9% IV 12/20/16 08:00 150 mls/hr .Q6H40M MALA Administration Lorazepam 1 mg 12/18/16 03:37 12/18/16 13:01 Ativan IVP 1 mg Q6 PRN Administration Agitation Morphine Sulfate 4 mg 12/18/16 14:58 12/19/16 13:30 Morphine IVP 4 mg Q4 PRN Administration Agitation Pantoprazole Sodium 40 mg 12/17/16 12:30 12/19/16 08:14 Protonix Inj IVP 40 mg DAILY MALA Administration - Patient Studies Lab Studies: Microbiology Studies 12/17/16 14:00 MRSA Culture (Admit) - Final Nose MRSA NOT DETECTED Lab Studies 12/19/16 12/19/16 12/19/16 Range/Units 11:59 07:03 05:16 WBC (4.8-10.8) K/uL RBC (4.40-5.90) Mil/uL Hgb (12.0-18.0) g/dL Hct (35.0-51.0) % MCV (80.0-94.0) fl MCH (27.0-31.0) pg MCHC (33.0-37.0) g/dL RDW (11.5-14.5) % Plt Count (130-400) K/uL MPV (7.2-11.7) fl Neut % (Auto) (50.0-75.0) % Lymph % (Auto) (20.0-40.0) % Hopkins % (Auto) (0.0-10.0) % Eos % (Auto) (0.0-4.0) % Baso % (Auto) (0.0-2.0) % Neut # (1.8-7.0) K/uL Lymph # (1.0-4.3) K/uL Hopkins # (0.0-0.8) K/uL Eos # (0.0-0.7) K/uL Baso # (0.0-0.2) K/uL pCO2 43 (35-45) mm/Hg pO2 97 (80-100) mm/Hg HCO3 24.5 (21-28) mmol/L ABG pH 7.37 (7.35-7.45) ABG Total CO2 26.2 (22-28) mmol/L ABG O2 Saturation 99.2 H (95-98) % ABG O2 Content 15.6 (15-23) ML/dL ABG Base Excess -0.5 (-2.0-3.0) mmol/L ABG Hemoglobin 11.5 L (11.7-17.4) g/dL ABG Carboxyhemoglobin 1.5 (0.5-1.5) % POC ABG HHb (Measured) 0.8 (0.0-5.0) % ABG Methemoglobin 1.8 (0.0-3.0) % ABG O2 Capacity 15.7 L (16-24) mL/dL Mo Test Yes A-a O2 Difference 134.0 mm/Hg Hgb O2 Saturation 95.9 (95.0-98.0) % Vent Mode A/c Mechanical Rate 10 FiO2 40.0 % Tidal Volume 450 PEEP 5 Sodium (132-148) mmol/l Potassium (3.6-5.0) MMOL/L Chloride (98-107) mmol/L Carbon Dioxide (22-30) mmol/L Anion Gap (10-20) BUN (9-20) mg/dl Creatinine (0.8-1.5) mg/dL Est GFR ( Amer) Est GFR (Non-Af Amer) POC Glucose (mg/dL) 291 H 270 H (65-110) mg/dL Random Glucose (75-110) mg/dL Calcium (8.4-10.2) mg/dL Total Bilirubin (0.2-1.3) mg/dl AST (17-59) U/L ALT (21-72) U/L Alkaline Phosphatase (38-126) U/L Total Protein (6.3-8.2) G/DL Albumin (3.5-5.0) g/dL Globulin (2.2-3.9) gm/dL Albumin/Globulin Ratio (1.0-2.1) 12/19/16 12/19/16 12/18/16 Range/Units 04:35 04:35 21:03 WBC 11.1 H (4.8-10.8) K/uL RBC 3.48 L (4.40-5.90) Mil/uL Hgb 10.8 L (12.0-18.0) g/dL Hct 33.4 L (35.0-51.0) % MCV 96.0 H (80.0-94.0) fl MCH 31.0 (27.0-31.0) pg MCHC 32.3 L (33.0-37.0) g/dL RDW 13.5 (11.5-14.5) % Plt Count 157 (130-400) K/uL MPV 9.5 (7.2-11.7) fl Neut % (Auto) 74.9 (50.0-75.0) % Lymph % (Auto) 9.3 L (20.0-40.0) % Hopkins % (Auto) 9.9 (0.0-10.0) % Eos % (Auto) 5.6 H (0.0-4.0) % Baso % (Auto) 0.3 (0.0-2.0) % Neut # 8.3 H (1.8-7.0) K/uL Lymph # 1.0 (1.0-4.3) K/uL Hopkins # 1.1 H (0.0-0.8) K/uL Eos # 0.6 (0.0-0.7) K/uL Baso # 0.0 (0.0-0.2) K/uL pCO2 (35-45) mm/Hg pO2 (80-100) mm/Hg HCO3 (21-28) mmol/L ABG pH (7.35-7.45) ABG Total CO2 (22-28) mmol/L ABG O2 Saturation (95-98) % ABG O2 Content (15-23) ML/dL ABG Base Excess (-2.0-3.0) mmol/L ABG Hemoglobin (11.7-17.4) g/dL ABG Carboxyhemoglobin (0.5-1.5) % POC ABG HHb (Measured) (0.0-5.0) % ABG Methemoglobin (0.0-3.0) % ABG O2 Capacity (16-24) mL/dL Mo Test A-a O2 Difference mm/Hg Hgb O2 Saturation (95.0-98.0) % Vent Mode Mechanical Rate FiO2 % Tidal Volume PEEP Sodium 146 (132-148) mmol/l Potassium 3.4 L (3.6-5.0) MMOL/L Chloride 113 H (98-107) mmol/L Carbon Dioxide 27 (22-30) mmol/L Anion Gap 9 L (10-20) BUN 22 H (9-20) mg/dl Creatinine 1.2 (0.8-1.5) mg/dL Est GFR ( Amer) > 60 Est GFR (Non-Af Amer) 58 POC Glucose (mg/dL) 178 H (65-110) mg/dL Random Glucose 213 H (75-110) mg/dL Calcium 7.7 L (8.4-10.2) mg/dL Total Bilirubin 0.4 (0.2-1.3) mg/dl AST 22 (17-59) U/L ALT 36 (21-72) U/L Alkaline Phosphatase 82 (38-126) U/L Total Protein 4.5 L (6.3-8.2) G/DL Albumin 2.0 L (3.5-5.0) g/dL Globulin 2.5 (2.2-3.9) gm/dL Albumin/Globulin Ratio 0.8 L (1.0-2.1) 12/18/16 Range/Units 16:16 WBC (4.8-10.8) K/uL RBC (4.40-5.90) Mil/uL Hgb (12.0-18.0) g/dL Hct (35.0-51.0) % MCV (80.0-94.0) fl MCH (27.0-31.0) pg MCHC (33.0-37.0) g/dL RDW (11.5-14.5) % Plt Count (130-400) K/uL MPV (7.2-11.7) fl Neut % (Auto) (50.0-75.0) % Lymph % (Auto) (20.0-40.0) % Hopkins % (Auto) (0.0-10.0) % Eos % (Auto) (0.0-4.0) % Baso % (Auto) (0.0-2.0) % Neut # (1.8-7.0) K/uL Lymph # (1.0-4.3) K/uL Hopkins # (0.0-0.8) K/uL Eos # (0.0-0.7) K/uL Baso # (0.0-0.2) K/uL pCO2 (35-45) mm/Hg pO2 (80-100) mm/Hg HCO3 (21-28) mmol/L ABG pH (7.35-7.45) ABG Total CO2 (22-28) mmol/L ABG O2 Saturation (95-98) % ABG O2 Content (15-23) ML/dL ABG Base Excess (-2.0-3.0) mmol/L ABG Hemoglobin (11.7-17.4) g/dL ABG Carboxyhemoglobin (0.5-1.5) % POC ABG HHb (Measured) (0.0-5.0) % ABG Methemoglobin (0.0-3.0) % ABG O2 Capacity (16-24) mL/dL Mo Test A-a O2 Difference mm/Hg Hgb O2 Saturation (95.0-98.0) % Vent Mode Mechanical Rate FiO2 % Tidal Volume PEEP Sodium (132-148) mmol/l Potassium (3.6-5.0) MMOL/L Chloride (98-107) mmol/L Carbon Dioxide (22-30) mmol/L Anion Gap (10-20) BUN (9-20) mg/dl Creatinine (0.8-1.5) mg/dL Est GFR ( Amer) Est GFR (Non-Af Amer) POC Glucose (mg/dL) 216 H (65-110) mg/dL Random Glucose (75-110) mg/dL Calcium (8.4-10.2) mg/dL Total Bilirubin (0.2-1.3) mg/dl AST (17-59) U/L ALT (21-72) U/L Alkaline Phosphatase (38-126) U/L Total Protein (6.3-8.2) G/DL Albumin (3.5-5.0) g/dL Globulin (2.2-3.9) gm/dL Albumin/Globulin Ratio (1.0-2.1) Laboratory Results - last 24 hr 12/18/16 12/18/16 12/19/16 16:16 21:03 04:35 WBC 11.1 H RBC 3.48 L Hgb 10.8 L Hct 33.4 L MCV 96.0 H MCH 31.0 MCHC 32.3 L RDW 13.5 Plt Count 157 MPV 9.5 Neut % (Auto) 74.9 Lymph % (Auto) 9.3 L Hopkins % (Auto) 9.9 Eos % (Auto) 5.6 H Baso % (Auto) 0.3 Neut # 8.3 H Lymph # 1.0 Hopkins # 1.1 H Eos # 0.6 Baso # 0.0 pCO2 pO2 HCO3 ABG pH ABG Total CO2 ABG O2 Saturation ABG O2 Content ABG Base Excess ABG Hemoglobin ABG Carboxyhemoglobin POC ABG HHb (Measured) ABG Methemoglobin ABG O2 Capacity Mo Test A-a O2 Difference Hgb O2 Saturation Vent Mode Mechanical Rate FiO2 Tidal Volume PEEP Sodium Potassium Chloride Carbon Dioxide Anion Gap BUN Creatinine Est GFR ( Amer) Est GFR (Non-Af Amer) POC Glucose (mg/dL) 216 H 178 H Random Glucose Calcium Total Bilirubin AST ALT Alkaline Phosphatase Total Protein Albumin Globulin Albumin/Globulin Ratio 12/19/16 12/19/16 12/19/16 04:35 05:16 07:03 WBC RBC Hgb Hct MCV MCH MCHC RDW Plt Count MPV Neut % (Auto) Lymph % (Auto) Hopkins % (Auto) Eos % (Auto) Baso % (Auto) Neut # Lymph # Hopkins # Eos # Baso # pCO2 43 pO2 97 HCO3 24.5 ABG pH 7.37 ABG Total CO2 26.2 ABG O2 Saturation 99.2 H ABG O2 Content 15.6 ABG Base Excess -0.5 ABG Hemoglobin 11.5 L ABG Carboxyhemoglobin 1.5 POC ABG HHb (Measured) 0.8 ABG Methemoglobin 1.8 ABG O2 Capacity 15.7 L Mo Test Yes A-a O2 Difference 134.0 Hgb O2 Saturation 95.9 Vent Mode A/c Mechanical Rate 10 FiO2 40.0 Tidal Volume 450 PEEP 5 Sodium 146 Potassium 3.4 L Chloride 113 H Carbon Dioxide 27 Anion Gap 9 L BUN 22 H Creatinine 1.2 Est GFR ( Amer) > 60 Est GFR (Non-Af Amer) 58 POC Glucose (mg/dL) 270 H Random Glucose 213 H Calcium 7.7 L Total Bilirubin 0.4 AST 22 ALT 36 Alkaline Phosphatase 82 Total Protein 4.5 L Albumin 2.0 L Globulin 2.5 Albumin/Globulin Ratio 0.8 L 12/19/16 11:59 WBC RBC Hgb Hct MCV MCH MCHC RDW Plt Count MPV Neut % (Auto) Lymph % (Auto) Hopkins % (Auto) Eos % (Auto) Baso % (Auto) Neut # Lymph # Hopkins # Eos # Baso # pCO2 pO2 HCO3 ABG pH ABG Total CO2 ABG O2 Saturation ABG O2 Content ABG Base Excess ABG Hemoglobin ABG Carboxyhemoglobin POC ABG HHb (Measured) ABG Methemoglobin ABG O2 Capacity Mo Test A-a O2 Difference Hgb O2 Saturation Vent Mode Mechanical Rate FiO2 Tidal Volume PEEP Sodium Potassium Chloride Carbon Dioxide Anion Gap BUN Creatinine Est GFR ( Amer) Est GFR (Non-Af Amer) POC Glucose (mg/dL) 291 H Random Glucose Calcium Total Bilirubin AST ALT Alkaline Phosphatase Total Protein Albumin Globulin Albumin/Globulin Ratio Fingerstick Blood Sugar Results: 291 Review of Systems - Review of Systems Systems not reviewed;Unavailable: Intubated - Constitutional Constitutional: absent: Fever Assessment/Plan - Assessment and Plan (Free Text) Assessment: 81 y/o M with PMH including Hypertension, NIDDM2 and recurrent pneumonia presented from shelter for respiratory distress and intubated by paramedics prior to ED arrival. In ED, patient was re-intubated after ETT was noted to be out of place. Patient was subsequently admitted with acute hypoxemic hypercapneic respiratory failure and sepsis with shock. Plan: Acute Hypoxemic Hypercapneic Respiratory Failure -Etiology likely secondary to aspiration event vs pneumonia vs medication induced -Patient intubated on 12/17/16. Currently on mechanical ventilation, day 3. -Spontaneous breathing trial performed between 09:30AM and 10:30AM today. Well tolerated, with FiO2 of 35% and RR in low 20s. Original vent settings resumed due to patient's mental status. Will attempt to wean as tolerated. -Current vent settings: 10/450/5/40% with patient satting at 100% -Will follow repeat ABG Pneumonia -R/O aspiration pneumonia -CXR demonstrates persistent primarily lower lobe infiltrates/effusions -Sputum gram stain collected on 12/17 reveals few gram positive cocci in changes, few gram negative rods. Culture pending. -On empiric Vancomycin 1gm IV daily, Zosyn 3.375gm IV Q6h, Ciprofloxacin 400mg IV Q12h -Pulmonology consulted Sepsis with shock -Weaned off levophed drip yesterday however required restarting overnight. Currently 7.5mcg/min. Will titrate down as tolerated. -Will adminster additional 500ml fluid bolus and increase IVF rate from 75cc/hr to 150cc/hr -VBG lactate 1.9 -Urine culture no growth, final. -Blood culture x2, no growth to date -Empiric antibiotics started on 12/17/16. Vancomycin 1gm IV daily (Started 12/18), Zosyn 3.375gm IV Q6h (Started 12/17), Ciprofloxacin 400mg IV Q12h (Started 12/17) Altered Mental Status -Patient has reported baseline dementia with likely delirium -CT head reveals no acute intracranial hemorrhage and mild to moderate chronic white matter ischemic changes. 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 Sharon Segura; and I agree with his outline of plans and management documented below as discussed on AM rounds reflecting my review of all applicable clinical data, and participation in the care of the patient throughout the day in ICU; today, December 19, 2016. Time spent with this patient did not overlap with any other provider's medical or critical care time. Additionally the code selected for the services rendered in this note includes the time spent: talking to the patients family, associated physicians and reviewing hospital data/results not listed here which extended to a total of 30 minutes.
[2016-12-19] MEDS ORDERED: Midazolam 2 MG/2 ML VIAL ONE ×2 (20:42→20:59)
[2016-12-19] MEDS ORDERED: Midazolam 2 MG/2 ML VIAL IV ONE ×2 (21:06→21:54)
--- NOTE | 2016-12-19 21:57 | PCM.PROC ---
Procedures Attestation:: I certify that I have explained the specified Operation(s) or Procedure(s), risks, benefits and reasonable alternatives to the Patient and/or other person responsible. The opportunity was given to ask questions and all questions answered - Central Line Placement Left Femoral Triple Lumen Catheter Aseptic technique was employed throughout the procedure: Hand Hygiene done prior to procedure, Full sterile barriers (mask, hair cover, sterile gown, sterile gloves), Full body sterile drape, Chloraprep Antiseptic: 2 minute prep for Femoral Pt. Placed on Pulse Ox Monitor: Yes Central Line Prep: Povidone-Iodine 1% Local Anesthesia Used: Lidocaine 1% Amount of Anesthesia Used (mls): 3 Ultrasound Used for Placement: No Central Line Lumen Inserted: triple Post Procedure: Sutured in Place, Good Blood Return, All Ports Aspirated, Flushed, Capped, Sterile Dressing Applied Secured by: Suture Patient Tolerated Procedure: Well, No Complications Immediate Complications: None Additional Comments: Patient had pulled out R femoral central line earlier this evening, and this new L was done so as to provide continued access for medications and pressors.
[2016-12-20] MEDS: Piperacillin/Tazobact 3.375 GM in Sodium Chloride 0.9% 100 ML IVPB SCH ×4 (03:18→22:02)
[2016-12-20 05:34] LABS: ABG ALLEN TEST YES; ABG MECHANICAL RATE 10; ARTERIAL BLOOD GAS HCO3 25.9 mmol/L (21-28); ARTERIAL BLOOD GAS MODE A/C; ARTERIAL BLOOD GAS O2 CONTENT 14.9 ML/dL (15-23); ARTERIAL BLOOD GAS PH 7.41 (7.35-7.45); ARTERIAL BLOOD GAS PO2 101 mm/Hg (80-100); ARTERIAL BLOOD HGB O2 SAT 96.1 % (95.0-98.0); ATERIAL BLOOD GAS PEEP 5; CARBOXYHEMOGLOBIN 1.4 % (0.5-1.5); HHB 0.6 % (0.0-5.0); METHEMOGLOBIN 1.9 % (0.0-3.0)
[2016-12-20 08:04] LABS: HEMATOCRIT 32.6 % (35.0-51.0); MEAN CELL VOLUME 97.1 fl (80.0-94.0); MEAN CORPUSCULAR HEMOGLOBIN 31.6 pg (27.0-31.0); MEAN CORPUSCULAR HGB CONC 32.5 g/dL (33.0-37.0); RED CELL DISTRIBUTION WIDTH 14.2 % (11.5-14.5); WHITE BLOOD COUNT 9.3 K/uL (4.8-10.8)
[2016-12-20 08:16] LABS: BLOOD UREA NITROGEN 14 mg/dl (9-20); CALCIUM 7.8 mg/dL (8.4-10.2); CARBON DIOXIDE 24 mmol/L (22-30); CHLORIDE 111 mmol/L (98-107); GFR AFRICAN-AMERICAN > 60; GLUCOSE,RANDOM 216 mg/dL (75-110); POTASSIUM 3.5 MMOL/L (3.6-5.0); SODIUM 141 mmol/l (132-148)
[2016-12-20] MEDS: Ciprofloxacin 400mg/200ml D5W 400 MG/200 ML BAG IVPB SCH ×2 (08:44→21:06)
[2016-12-20] MEDS: Sodium Chloride 0.9% 1,000 ML IV SCH (08:45)
[2016-12-20] MEDS: Enoxaparin 40 mg Syringe SC SCH (08:46)
--- NOTE | 2016-12-20 09:40 | CP.CCUPN ---
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 No other distress noted, tolerated trial on CPAP 5 PS * with fair tolerance, RR up to 27 noted with Spont TVe= 220 ml. Afebrile, no new fever spikes, BP 98 systolic , HR 87, RR 27 as above on CPAP PS, was 12 on AC 10 mode, SPO2 remains at 100%. Last 24H I/Os = 5.8L. ROS: as above, no other obtainable pertinent negs or positives on 12 system review from other documentations. PMSFH: All nursing and physician documentation reviewed, no new information noted pertinent to current medical problems. No other distress noted: EXAM- HEENT: no icterus, pupils pinpoint but equal and reactive bilat, no nystagmus NECK: no visible JVD, supple, carotids equal upstroke bilat/no bruits CHEST: decreased BS bases, no wheezes audible HEART: regular, distant, tachy S1S2, no murmur audible, no rubs. ABD: soft, obese, no distention, no focal tenderness, no HSM. BS hypoactive, no abdominal bruits or other masses EXT: no leg edema, no peripheral/ digital cyanosis, no calf tenderness or palpable cords, distal pulses intact and symmetrical NEURO: No focal motor deficits, + tone all extremities. SKIN: no rashes LABS: 7.41/41/101 WBC= 9.3 HGB= 10.6 PLTs= 145K Na= 141 K= 3.5 HCO3= 2.4 BUN/Cr= 14/0.9 BS= 216 CXR: (my interp)- ETT position OK above lex, no new consolidation, previous interstitial changes persist over RLL area and left base. MAJOR PROBLEMS: 1. Acute Hypoxemic Hypercapneic Resp Failure 2. Pneumonitis, r/o Aspiration event 3. Sepsis with Shock, r/o Bacteremia 4. AMS 2 Toxic-metabolic / Septic Encephalopathy PLAN: 1. CPAP trial towards extubation today. 2. Lasix prn with marked fluid balance over the last several days in attempts to wean off vasopressors. 3. Empiric abx coverage, no new organisms isolated. 4. Would continue to hold previous Psych meds including Neurontin. No excessive or unmanageable psychomotor agitative activity noted.
[2016-12-20] MEDS ORDERED: Albuterol-Ipratrop 3 mg / 0.5 (3 ml) UD INH STA (10:00)
[2016-12-20] MEDS ORDERED: Albuterol-Ipratrop 3 mg / 0.5 (3 ml) UD ONE (10:22)
--- NOTE | 2016-12-20 10:39 | CP.PCM.PN ---
Subjective - Date & Time of Evaluation Date of Evaluation: 12/20/16 Time of Evaluation: 10:39 - Subjective Subjective: pt more alert, pulling at restraints, off levophed, no distress. for possible weaning and extubation today. bw reviewed. case d/c w/ dr reyes Objective - Vital Signs/Intake and Output Vital Signs (last 24 hours): Temp Pulse Resp BP Pulse Ox 98.8 F 81 21 95/51 L 100 12/20/16 08:00 12/20/16 08:00 12/20/16 08:00 12/20/16 08:00 12/20/16 08:00 Intake and Output: 12/20/16 12/20/16 06:59 18:59 Intake Total 2866 420 Output Total 325 Balance 2541 420 - Medications Medications: Current Medications Acetaminophen (Tylenol 650mg/20.3ml Solution Ud) 650 mg PO Q4 PRN PRN Reason: Temperature Last Admin: 12/17/16 23:54 Dose: 650 mg Enoxaparin Sodium (Lovenox) 40 mg SC DAILY [facility] PRN Reason: Protocol Last Admin: 12/20/16 08:46 Dose: 40 mg Ciprofloxacin (Cipro 400mg/200ml Dsw) 400 mg in 200 mls @ 200 mls/hr IVPB Q12 [facility] Last Admin: 12/20/16 08:44 Dose: 200 mls/hr Vancomycin HCl 1 gm/ Sodium (Chloride) 250 mls @ 166.667 mls/hr IVPB DAILY [facility] Last Admin: 12/20/16 09:58 Dose: 166.667 mls/hr Piperacillin Sod/Tazobactam (Sod 3.375 gm/ Sodium Chloride) 100 mls @ 100 mls/ hr IVPB Q6 [facility] Last Admin: 12/20/16 09:55 Dose: 100 mls/hr Norepinephrine Bitartrate 4 mg (/ Dextrose) 254 mls @ 28.57 mls/hr IV .Q8H54M [facility]; 7.5 MCG/MIN PRN Reason: Protocol Last Admin: 12/20/16 04:57 Dose: 7.5 mcg/min, 28.57 mls/hr Lorazepam (Ativan) 1 mg IVP Q6 PRN PRN Reason: Agitation Last Admin: 12/20/16 00:09 Dose: 1 mg Morphine Sulfate (Morphine) 4 mg IVP Q4 PRN PRN Reason: Agitation Last Admin: 12/19/16 20:56 Dose: 4 mg Pantoprazole Sodium (Protonix Inj) 40 mg IVP DAILY [facility] Last Admin: 12/20/16 09:56 Dose: 40 mg - Labs Labs: 12/20/16 05:30 12/20/16 05:30 PT 12.9 SECONDS (9.6-11.2) H 12/18/16 04:40 INR 1.24 (0.92-1.08) H 12/18/16 04:40 APTT 26.6 SECONDS (23.3-32.5) 12/18/16 04:40 - Constitutional Appears: Well, Non-toxic, No Acute Distress - Head Exam Head Exam: ATRAUMATIC, NORMAL INSPECTION, NORMOCEPHALIC - Eye Exam Eye Exam: EOMI, Normal appearance, PERRL Pupil Exam: NORMAL ACCOMODATION, PERRL - ENT Exam ENT Exam: Mucous Membranes Moist, Normal Exam - Neck Exam Neck Exam: Full ROM, Normal Inspection. absent: Lymphadenopathy - Respiratory Exam Respiratory Exam: Clear to Ausculation Bilateral, NORMAL BREATHING PATTERN Additional comments: vented - Cardiovascular Exam Cardiovascular Exam: REGULAR RHYTHM, RRR, +S1, +S2. absent: Murmur - GI/Abdominal Exam GI & Abdominal Exam: Soft, Normal Bowel Sounds. absent: Tenderness - Extremities Exam Extremities Exam: Full ROM, Normal Capillary Refill, Normal Inspection. absent : Joint Swelling, Pedal Edema - Back Exam Back Exam: NORMAL INSPECTION - Neurological Exam Neurological Exam: Alert, Awake, CN II-XII Intact, Normal Gait, Oriented x3 - Psychiatric Exam Psychiatric exam: Normal Affect, Normal Mood - Skin Skin Exam: Dry, Intact, Normal Color, Warm Assessment and Plan (1) Pneumonia Status: Acute (2) Respiratory failure Status: Acute (3) Altered mental status Status: Acute (4) DVT prophylaxis Status: Acute - Assessment and Plan (Free Text) Assessment: (1) Pneumonia Assessment and Plan: cipro, vanc, zosyn pulm vent support wean as giuliano sedate as needed monitor bw yeast grew Status: Acute (2) Respiratory failure Assessment and Plan: vent, pulm, icu care Status: Acute (3) Altered mental status Status: Acute (4) DVT prophylaxis Assessment and Plan: scd and ae hose lovenox as per icu Status: Acute was called approx 1115 that pt had been extubateed but then developed wheezing/ stridor and was reintubated. willc ont to follow. ID consult ordered.
[2016-12-20] MEDS ORDERED: Propofol 10 mg/ml 1,000 MG/100 ML VIAL ONE (10:41)
--- NOTE | 2016-12-20 10:56 | RAD ---
HISTORY: ETT placement COMPARISON: Yesterday FINDINGS: LUNGS: Endotracheal tube is seen within the distal trachea 2 centimeters above the lex. There is mild interval improvement in aeration at the left lung base with probable residual subsegmental atelectasis and mild right pleural fluid seen at the right lung base. PLEURA: Probable small right pleural effusion. Minor left effusion. No pneumothorax. CARDIOVASCULAR: Heart is enlarged. Pulmonary vasculature is mildly congested. OSSEOUS STRUCTURES: No significant abnormalities. VISUALIZED UPPER ABDOMEN: Normal. OTHER FINDINGS: NG tube is identified with its tip past the GE junction and probably within the stomach. IMPRESSION: Status post intubation. Mild improvement in aeration at the left lung base. Small right effusion and mild atelectasis at the right lung base. Mild vascular congestion.
--- NOTE | 2016-12-20 11:12 | CP.CCUPN ---
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 945AM, did well for approx. 1 hour then became agitated and pulling at lines and Ventimask off. Patient given DuoNeb stat treatment. Attempts to calm patient unsuccessful with Morphine and Ativan dosing unsuccessful, finally became hypoxic with SPo2 not improving from 88%, and audible stridor and wheezing noted. Decision made to re-intubate patient. Family not available for further discussion. ETT 7.5mm placed orotracheally using MAC 3 under DL x1; and ETT passed thru after direct visualization of cords. ETT position confirmed by auscultation and via ETCO2. ETT secured at 23 cm mindi at the lips and CXT ordered for conformation of placement. Patient placed on previous AM settings of PRVC AC 10, TV 450ml, fiO2 40%, PEEP 5 and SPO2 noted at 98%. Same beige secretions noted but thinner, suctioned from ETT. Discussed with Drs. Jiménez and Jigar: will start steroids, and obtain ID consultation, repeat Sputum C&S ordered.
[2016-12-20] MEDS ORDERED: Propofol 10 mg/ml Inj (20 ML) IV ONE (11:17)
--- NOTE | 2016-12-20 11:25 | CP.PCM.PN ---
Subjective - Date & Time of Evaluation Date of Evaluation: 12/20/16 Time of Evaluation: 11:26 - Subjective Subjective: EXTUBATED THEN RE-INTUBATED BECAUSE OF RESPIRATORY DISTRESS Objective - Vital Signs/Intake and Output Vital Signs (last 24 hours): Temp Pulse Resp BP Pulse Ox 98.8 F 81 21 95/51 L 100 12/20/16 08:00 12/20/16 08:00 12/20/16 08:00 12/20/16 08:00 12/20/16 08:00 Intake and Output: 12/20/16 12/20/16 06:59 18:59 Intake Total 2866 420 Output Total 325 Balance 2541 420 - Medications Medications: Current Medications Acetaminophen (Tylenol 650mg/20.3ml Solution Ud) 650 mg PO Q4 PRN PRN Reason: Temperature Last Admin: 12/17/16 23:54 Dose: 650 mg Enoxaparin Sodium (Lovenox) 40 mg SC DAILY [facility] PRN Reason: Protocol Last Admin: 12/20/16 08:46 Dose: 40 mg Furosemide (Lasix) 40 mg IV ONCE ONE Stop: 12/20/16 11:21 Ciprofloxacin (Cipro 400mg/200ml Dsw) 400 mg in 200 mls @ 200 mls/hr IVPB Q12 [facility] Last Admin: 12/20/16 08:44 Dose: 200 mls/hr Vancomycin HCl 1 gm/ Sodium (Chloride) 250 mls @ 166.667 mls/hr IVPB DAILY [facility] Last Admin: 12/20/16 09:58 Dose: 166.667 mls/hr Piperacillin Sod/Tazobactam (Sod 3.375 gm/ Sodium Chloride) 100 mls @ 100 mls/ hr IVPB Q6 [facility] Last Admin: 12/20/16 09:55 Dose: 100 mls/hr Norepinephrine Bitartrate 4 mg (/ Dextrose) 254 mls @ 28.57 mls/hr IV .Q8H54M [facility]; 7.5 MCG/MIN PRN Reason: Protocol Last Admin: 12/20/16 04:57 Dose: 7.5 mcg/min, 28.57 mls/hr Propofol (Diprivan) 1,000 mg in 100 mls @ 2.1 mls/hr IV .Q24H [facility]; 5 MCG/KG/MIN PRN Reason: Protocol Stop: 12/21/16 11:17 Lorazepam (Ativan) 1 mg IVP Q6 PRN PRN Reason: Agitation Last Admin: 12/20/16 00:09 Dose: 1 mg Lorazepam (Ativan) 1 mg IVP ONCE ONE Stop: 12/20/16 11:19 Morphine Sulfate (Morphine) 4 mg IVP Q4 PRN PRN Reason: Agitation Last Admin: 12/20/16 10:39 Dose: 4 mg Morphine Sulfate (Morphine) 4 mg IVP ONCE ONE Stop: 12/20/16 11:19 Pantoprazole Sodium (Protonix Inj) 40 mg IVP DAILY [facility] Last Admin: 12/20/16 09:56 Dose: 40 mg Propofol (Diprivan) 70 mg IV ONCE ONE Stop: 12/20/16 11:18 - Labs Labs: 12/20/16 05:30 12/20/16 05:30 PT 12.9 SECONDS (9.6-11.2) H 12/18/16 04:40 INR 1.24 (0.92-1.08) H 12/18/16 04:40 APTT 26.6 SECONDS (23.3-32.5) 12/18/16 04:40 - Constitutional Appears: In Acute Distress - Head Exam Head Exam: ATRAUMATIC, NORMAL INSPECTION, NORMOCEPHALIC - Eye Exam Eye Exam: EOMI, Normal appearance, PERRL Pupil Exam: NORMAL ACCOMODATION, PERRL - ENT Exam ENT Exam: Mucous Membranes Moist, Normal Exam - Neck Exam Neck Exam: Full ROM, Normal Inspection. absent: Lymphadenopathy - Respiratory Exam Respiratory Exam: Decreased Breath Sounds, Prolonged Expiratory Phase, Rales, Wheezes, NORMAL BREATHING PATTERN - Cardiovascular Exam Cardiovascular Exam: REGULAR RHYTHM, +S1, +S2. absent: Murmur - GI/Abdominal Exam GI & Abdominal Exam: Soft, Normal Bowel Sounds. absent: Tenderness - Rectal Exam Rectal Exam: NORMAL INSPECTION - Extremities Exam Extremities Exam: Full ROM, Normal Capillary Refill, Normal Inspection, Pedal Edema. absent: Joint Swelling - Back Exam Back Exam: NORMAL INSPECTION - Skin Skin Exam: Dry, Intact, Normal Color, Warm Assessment and Plan - Assessment and Plan (Free Text) Assessment: ACUTE RESPIRATORY FAILURE PNEUMONIA Plan: WILL CONTINUE VENT CARE AND IV ANTIBIOTICS WILL ADD IV STEROIDS TO REGIMEN
[2016-12-20] MEDS ORDERED: Propofol 10 mg/ml 1,000 MG/100 ML VIAL IV SCH (11:30)
--- NOTE | 2016-12-20 11:53 | RAD ---
HISTORY: post re- intubation COMPARISON: 12/20/2016 at 7:20 FINDINGS: LUNGS: There is continued interval improvement in aeration at the lung bases. Vasculature may also be slightly improved. Endotracheal tube is unchanged in position within the distal trachea. NG tube is seen in the stomach. PLEURA: Very small effusions are once again noted, minimally larger on the right. CARDIOVASCULAR: Minimally improved congestion. OSSEOUS STRUCTURES: No significant abnormalities. VISUALIZED UPPER ABDOMEN: Normal. OTHER FINDINGS: None. IMPRESSION: Continued mild interval improvement in aeration at the lung bases. Status post intubation. No new infiltrate seen.
[2016-12-20] MEDS ORDERED: methylPREDNISolone 125 MG in Sodium Chloride 0.9% 50 ML IVPB ONE (12:00)
[2016-12-20] MEDS: Albuterol-Ipratrop 3 mg / 0.5 (3 ml) UD INH SCH ×3 (12:06→19:52)
[2016-12-20] MEDS: methylPREDNISolone 60 MG in Sodium Chloride 0.9% 50 ML IVPB SCH ×2 (13:23→20:28)
[2016-12-20] MEDS ORDERED: Sodium Chloride 0.9% 1,000 ML IV SCH (18:00)
[2016-12-20] MEDS: Insulin Lispro (humaLOG) 100 Units/ml Inj SC SCH (23:45)
[2016-12-21] MEDS: Piperacillin/Tazobact 3.375 GM in Sodium Chloride 0.9% 100 ML IVPB SCH ×4 (04:08→22:26)
[2016-12-21 04:34] LABS: ABG ALLEN TEST YES; ABG MECHANICAL RATE 10; ARTERIAL BLOOD GAS HCO3 27.5 mmol/L (21-28); ARTERIAL BLOOD GAS MODE A/C; ARTERIAL BLOOD GAS O2 CAPACITY 14.8 mL/dL (16-24); ARTERIAL BLOOD GAS O2 CONTENT 14.5 ML/dL (15-23); ARTERIAL BLOOD GAS PH 7.51 (7.35-7.45); ARTERIAL BLOOD GAS PO2 71 mm/Hg (80-100); ARTERIAL BLOOD HGB O2 SAT 94.9 % (95.0-98.0); ATERIAL BLOOD GAS PEEP 5; CARBOXYHEMOGLOBIN 1.4 % (0.5-1.5); HHB 1.8 % (0.0-5.0); METHEMOGLOBIN 1.9 % (0.0-3.0)
[2016-12-21 04:51] LABS: VENOUS BLOOD GAS MODE A/C; VENOUS BLOOD GAS PCO2 39 mmHg (40-60); VENOUS BLOOD PH 7.45 (7.32-7.43)
[2016-12-21 05:16] LABS: BASO % 0.1 % (0.0-2.0); HEMATOCRIT 32.8 % (35.0-51.0); LYMPH # 0.9 K/uL (1.0-4.3); LYMPH % 9.6 % (20.0-40.0); MEAN CORPUSCULAR HEMOGLOBIN 31.6 pg (27.0-31.0); MEAN CORPUSCULAR HGB CONC 33.2 g/dL (33.0-37.0); MEAN PLATELET VOLUME 9.7 fl (7.2-11.7); MONO # 0.2 K/uL (0.0-0.8); MONO % 2.5 % (0.0-10.0); NEUT # 7.8 K/uL (1.8-7.0); NEUT % 87.8 % (50.0-75.0); NRBC % 0.1 % (0.0-0.0); RED CELL DISTRIBUTION WIDTH 13.8 % (11.5-14.5); WHITE BLOOD COUNT 8.9 K/uL (4.8-10.8)
[2016-12-21 05:25] LABS: ALB/GLOB RATIO 0.8 (1.0-2.1); ALKALINE PHOSPHATASE 107 U/L (38-126); ALT/SGPT 36 U/L (21-72); AST/SGOT 19 U/L (17-59); BILIRUBIN,TOTAL 0.4 mg/dl (0.2-1.3); BLOOD UREA NITROGEN 16 mg/dl (9-20); CALCIUM 8.2 mg/dL (8.4-10.2); CARBON DIOXIDE 26 mmol/L (22-30); CHLORIDE 107 mmol/L (98-107); GFR AFRICAN-AMERICAN > 60; GLUCOSE,RANDOM 377 mg/dL (75-110); POTASSIUM 3.7 MMOL/L (3.6-5.0); SODIUM 140 mmol/l (132-148)
[2016-12-21] MEDS: Insulin Lispro (humaLOG) 100 Units/ml Inj SC SCH ×3 (05:43→18:12)
[2016-12-21] MEDS ORDERED: Sodium Chloride 0.9% 1,000 ML IV SCH (07:26)
[2016-12-21] MEDS: Albuterol-Ipratrop 3 mg / 0.5 (3 ml) UD INH SCH ×4 (07:42→19:56)
[2016-12-21] MEDS: Ciprofloxacin 400mg/200ml D5W 400 MG/200 ML BAG IVPB SCH ×2 (08:40→21:09)
[2016-12-21] MEDS: Enoxaparin 40 mg Syringe SC SCH (08:45)
[2016-12-21] MEDS: methylPREDNISolone 60 MG in Sodium Chloride 0.9% 50 ML IVPB SCH ×2 (08:58→21:08)
--- NOTE | 2016-12-21 09:26 | CP.PCM.PN ---
Subjective - Date & Time of Evaluation Date of Evaluation: 12/21/16 Time of Evaluation: 09:26 - Subjective Subjective: dictated note no distress but is agitated on vent, case d/c w/ engagement engineer dr reyes. pt is pending [facility] protocols. questions exist if pt will be able to maintain balance of agitation/respiration. bw and imaging noted. Objective - Vital Signs/Intake and Output Vital Signs (last 24 hours): Temp Pulse Resp BP Pulse Ox 98.2 F 80 14 100/54 L 100 12/21/16 08:00 12/21/16 08:00 12/21/16 08:00 12/21/16 08:00 12/21/16 08:00 Intake and Output: 12/21/16 12/21/16 06:59 18:59 Intake Total 2940 420 Output Total 600 Balance 2340 420 - Medications Medications: Current Medications Acetaminophen (Tylenol 650mg/20.3ml Solution Ud) 650 mg PO Q4 PRN PRN Reason: Temperature Last Admin: 12/17/16 23:54 Dose: 650 mg Albuterol/Ipratropium (Duoneb 3 Mg/0.5 Mg (3 Ml) Ud) 3 ml INH RQID [facility] Last Admin: 12/21/16 07:42 Dose: 3 ml Enoxaparin Sodium (Lovenox) 40 mg SC DAILY [facility] PRN Reason: Protocol Last Admin: 12/21/16 08:45 Dose: 40 mg Ciprofloxacin (Cipro 400mg/200ml Dsw) 400 mg in 200 mls @ 200 mls/hr IVPB Q12 [facility] Last Admin: 12/21/16 08:40 Dose: 200 mls/hr Vancomycin HCl 1 gm/ Sodium (Chloride) 250 mls @ 166.667 mls/hr IVPB DAILY [facility] Last Admin: 12/20/16 09:58 Dose: 166.667 mls/hr Piperacillin Sod/Tazobactam (Sod 3.375 gm/ Sodium Chloride) 100 mls @ 100 mls/ hr IVPB Q6 [facility] Last Admin: 12/21/16 04:08 Dose: 100 mls/hr Methylprednisolone 60 mg/ (Sodium Chloride) 50 mls @ 100 mls/hr IVPB Q12 [facility] Last Admin: 12/21/16 08:58 Dose: 100 mls/hr Dexmedetomidine HCl 400 mcg/ (Sodium Chloride) 100 mls @ 3.5 mls/hr IV .Q24H ONE; 0.2 MCG/KG/HR PRN Reason: Protocol Stop: 12/22/16 09:29 Sodium Chloride (Sodium Chloride 0.9%) 1,000 mls @ 84 mls/hr IV .[id number] [facility] Stop: 12/21/16 17:51 Insulin Human Lispro (Humalog) 0 units SC Q6H [facility] PRN Reason: Protocol Last Admin: 12/21/16 05:43 Dose: 4 units Lorazepam (Ativan) 1 mg IVP Q6 PRN PRN Reason: Agitation Last Admin: 12/20/16 00:09 Dose: 1 mg Morphine Sulfate (Morphine) 4 mg IVP Q4 PRN PRN Reason: Agitation Last Admin: 12/21/16 05:40 Dose: 4 mg Pantoprazole Sodium (Protonix Inj) 40 mg IVP DAILY [facility] Last Admin: 12/21/16 08:52 Dose: 40 mg - Labs Labs: 12/21/16 04:30 12/21/16 04:30 PT 12.9 SECONDS (9.6-11.2) H 12/18/16 04:40 INR 1.24 (0.92-1.08) H 12/18/16 04:40 APTT 26.6 SECONDS (23.3-32.5) 12/18/16 04:40 Assessment and Plan (1) Pneumonia Status: Acute (2) Respiratory failure Status: Acute (3) Altered mental status Status: Acute (4) DVT prophylaxis Status: Acute
[2016-12-21] MEDS ORDERED: Dexmedetomidine Hydrochloride 400 MCG in Sodium Chloride 0.9% 96 ML IV ONE (09:30)
--- NOTE | 2016-12-21 10:14 | CP.CCUPN ---
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 Last 24H I/Os = 5501/3300ml. He did tolerate brief trial on CPAP 5, PS 8 albeit under Propofol sedation. ROS: as above, no other obtainable pertinent negs or positives on 12 system review from other documentations. PMSFH: All nursing and physician documentation reviewed, no new information noted pertinent to current medical problems. No other distress noted: EXAM- HEENT: no icterus, pupils pinpoint but equal and reactive bilat, no nystagmus NECK: no visible JVD, supple, carotids equal upstroke bilat/no bruits CHEST: decreased BS bases, no wheezes audible HEART: regular, distant, tachy S1S2, no murmur audible, no rubs. ABD: soft, obese, no distention, no focal tenderness, no HSM. BS hypoactive, no abdominal bruits or other masses EXT: no leg edema, no peripheral/ digital cyanosis, no calf tenderness or palpable cords, distal pulses intact and symmetrical NEURO: No focal motor deficits, + tone all extremities. SKIN: no rashes LABS: 7.45/39/28 with 72% satn on VBG 7.51/33/71 on ABG Lactate = 1.9 WBC= 8.9 HGB= 10.9 PLTs= 144K Na= 140 K= 3.7 HCO3= 26 BUN/Cr= 16/0.9 BS= 377 CXR: (my interp)- ETT position OK above elx, atelectatic R base. MAJOR PROBLEMS: 1. Acute Hypoxemic Hypercapneic Resp Failure 2. Pneumonitis, r/o Aspiration event 3. Sepsis with Shock, r/o Bacteremia 4. AMS 2 Toxic-metabolic / Septic Encephalopathy PLAN: 1. Will switch Propofol to Dexmedetomidine in hope to avoid less Delirium. 2. Steroids as per Pulm. 3. Check for cuff leak when he is ready for extubation. 4. No new organisms isolated so far, on empiric abx coverage. 5. Maintain normoglycemia as tolerated. 6. Continue to hold previous Psych meds including Neurontin.
--- NOTE | 2016-12-21 11:11 | CP.PCM.PN ---
Subjective - Date & Time of Evaluation Date of Evaluation: 12/21/16 Time of Evaluation: 11:11 - Subjective Subjective: STILL INTUBATED AND BEING VENTILATED AWAKE AND ALERT Objective - Vital Signs/Intake and Output Vital Signs (last 24 hours): Temp Pulse Resp BP Pulse Ox 98.2 F 75 14 112/56 L 100 12/21/16 08:00 12/21/16 09:00 12/21/16 09:00 12/21/16 09:00 12/21/16 09:00 Intake and Output: 12/21/16 12/21/16 06:59 18:59 Intake Total 2940 420 Output Total 600 Balance 2340 420 - Medications Medications: Current Medications Acetaminophen (Tylenol 650mg/20.3ml Solution Ud) 650 mg PO Q4 PRN PRN Reason: Temperature Last Admin: 12/17/16 23:54 Dose: 650 mg Albuterol/Ipratropium (Duoneb 3 Mg/0.5 Mg (3 Ml) Ud) 3 ml INH RQID [facility] Last Admin: 12/21/16 07:42 Dose: 3 ml Enoxaparin Sodium (Lovenox) 40 mg SC DAILY [facility] PRN Reason: Protocol Last Admin: 12/21/16 08:45 Dose: 40 mg Ciprofloxacin (Cipro 400mg/200ml Dsw) 400 mg in 200 mls @ 200 mls/hr IVPB Q12 [facility] Last Admin: 12/21/16 08:40 Dose: 200 mls/hr Vancomycin HCl 1 gm/ Sodium (Chloride) 250 mls @ 166.667 mls/hr IVPB DAILY [facility] Last Admin: 12/21/16 10:32 Dose: 166.667 mls/hr Piperacillin Sod/Tazobactam (Sod 3.375 gm/ Sodium Chloride) 100 mls @ 100 mls/ hr IVPB Q6 [facility] Last Admin: 12/21/16 10:31 Dose: 100 mls/hr Methylprednisolone 60 mg/ (Sodium Chloride) 50 mls @ 100 mls/hr IVPB Q12 [facility] Last Admin: 12/21/16 08:58 Dose: 100 mls/hr Dexmedetomidine HCl 400 mcg/ (Sodium Chloride) 100 mls @ 3.5 mls/hr IV .Q24H ONE; 0.2 MCG/KG/HR PRN Reason: Protocol Stop: 12/22/16 09:29 Last Admin: 12/21/16 09:42 Dose: 0.2 mcg/kg/hr, 3.5 mls/hr Sodium Chloride (Sodium Chloride 0.9%) 1,000 mls @ 84 mls/hr IV .[id number] [facility] Stop: 12/21/16 17:51 Insulin Human Lispro (Humalog) 0 units SC Q6H [facility] PRN Reason: Protocol Last Admin: 12/21/16 05:43 Dose: 4 units Lorazepam (Ativan) 1 mg IVP Q6 PRN PRN Reason: Agitation Last Admin: 12/20/16 00:09 Dose: 1 mg Morphine Sulfate (Morphine) 4 mg IVP Q4 PRN PRN Reason: Agitation Last Admin: 12/21/16 05:40 Dose: 4 mg Pantoprazole Sodium (Protonix Inj) 40 mg IVP DAILY [facility] Last Admin: 12/21/16 08:52 Dose: 40 mg - Labs Labs: 12/21/16 04:30 12/21/16 04:30 PT 12.9 SECONDS (9.6-11.2) H 12/18/16 04:40 INR 1.24 (0.92-1.08) H 12/18/16 04:40 APTT 26.6 SECONDS (23.3-32.5) 12/18/16 04:40 - Constitutional Appears: Chronically Ill - Head Exam Head Exam: ATRAUMATIC, NORMAL INSPECTION, NORMOCEPHALIC - Eye Exam Eye Exam: EOMI, Normal appearance, PERRL Pupil Exam: NORMAL ACCOMODATION, PERRL - ENT Exam ENT Exam: Mucous Membranes Moist, Normal Exam - Neck Exam Neck Exam: Full ROM, Normal Inspection. absent: Lymphadenopathy - Respiratory Exam Respiratory Exam: Rales, NORMAL BREATHING PATTERN Additional comments: ETT IN PLACE - Cardiovascular Exam Cardiovascular Exam: REGULAR RHYTHM, +S1, +S2. absent: Murmur - GI/Abdominal Exam GI & Abdominal Exam: Soft, Normal Bowel Sounds. absent: Tenderness - Rectal Exam Rectal Exam: NORMAL INSPECTION - Extremities Exam Extremities Exam: Full ROM, Normal Capillary Refill, Normal Inspection. absent : Joint Swelling, Pedal Edema - Back Exam Back Exam: NORMAL INSPECTION - Neurological Exam Neurological Exam: Alert, Awake - Skin Skin Exam: Dry, Intact, Normal Color, Warm Assessment and Plan - Assessment and Plan (Free Text) Assessment: ACUTE RESP FAILURE PNEUMONIA Plan: CONTINUE PRESENT RX
--- NOTE | 2016-12-21 11:41 | RAD ---
HISTORY: Intubated COMPARISON: 12/20/2016 FINDINGS: LUNGS: Patient is once again intubated with endotracheal tube in the mid trachea. NG tube is in the stomach. No pneumothorax is noted. There is mild right lower lobe subsegmental atelectasis as well as small bilateral effusions and mild subsegmental atelectasis also at the left lung base. Vasculature is not significantly congested. PLEURA: See above CARDIOVASCULAR: See above OSSEOUS STRUCTURES: No significant abnormalities. VISUALIZED UPPER ABDOMEN: Normal. OTHER FINDINGS: None. IMPRESSION: Status post intubation. Bilateral pleural effusions and atelectasis at the lung bases.
[2016-12-21] MEDS ORDERED: Propofol 10 mg/ml 1,000 MG/100 ML VIAL IV SCH (14:15)
[2016-12-22] MEDS: Insulin Lispro (humaLOG) 100 Units/ml Inj SC SCH ×5 (00:11→23:39)
[2016-12-22] MEDS: Piperacillin/Tazobact 3.375 GM in Sodium Chloride 0.9% 100 ML IVPB SCH ×3 (03:53→15:19)
[2016-12-22 05:06] LABS: HEMATOCRIT 33.2 % (35.0-51.0); MEAN CELL VOLUME 95.9 fl (80.0-94.0); MEAN CORPUSCULAR HEMOGLOBIN 31.4 pg (27.0-31.0); MEAN CORPUSCULAR HGB CONC 32.7 g/dL (33.0-37.0); RED CELL DISTRIBUTION WIDTH 13.7 % (11.5-14.5); WHITE BLOOD COUNT 16.3 K/uL (4.8-10.8)
[2016-12-22 05:14] LABS: ALB/GLOB RATIO 0.8 (1.0-2.1); ALKALINE PHOSPHATASE 144 U/L (38-126); ALT/SGPT 39 U/L (21-72); AST/SGOT 23 U/L (17-59); BILIRUBIN,TOTAL 0.2 mg/dl (0.2-1.3); BLOOD UREA NITROGEN 23 mg/dl (9-20); CALCIUM 8.6 mg/dL (8.4-10.2); CARBON DIOXIDE 25 mmol/L (22-30); CHLORIDE 107 mmol/L (98-107); GFR AFRICAN-AMERICAN > 60; GLUCOSE,RANDOM 387 mg/dL (75-110); POTASSIUM 4.2 MMOL/L (3.6-5.0); SODIUM 140 mmol/l (132-148); TOTAL PROTEIN 4.9 G/DL (6.3-8.2)
[2016-12-22 05:20] LABS: ABG ALLEN TEST YES; ABG MECHANICAL RATE 10; ARTERIAL BLOOD GAS HCO3 26.4 mmol/L (21-28); ARTERIAL BLOOD GAS MODE A/C; ARTERIAL BLOOD GAS O2 CAPACITY 14.7 mL/dL (16-24); ARTERIAL BLOOD GAS O2 CONTENT 14.1 ML/dL (15-23); ARTERIAL BLOOD GAS PH 7.47 (7.35-7.45); ARTERIAL BLOOD GAS PO2 59 mm/Hg (80-100); ARTERIAL BLOOD HGB O2 SAT 92.9 % (95.0-98.0); ATERIAL BLOOD GAS PEEP 5; CARBOXYHEMOGLOBIN 1.6 % (0.5-1.5); HHB 3.8 % (0.0-5.0); METHEMOGLOBIN 1.7 % (0.0-3.0)
--- NOTE | 2016-12-22 07:25 | CP.PCM.PN ---
Subjective - Date & Time of Evaluation Date of Evaluation: 12/22/16 Time of Evaluation: 07:25 - Subjective Subjective: remains on propofol. agitated when propofol tapered. still on vent. spoke w/ son who is interested on hearing about hospice care. no f/c, n/v/d. bw noted, cxr case d/c w/ icu, son Objective - Vital Signs/Intake and Output Vital Signs (last 24 hours): Temp Pulse Resp BP Pulse Ox 98.4 F 74 24 116/54 L 99 12/22/16 00:00 12/22/16 04:00 12/22/16 04:00 12/22/16 04:00 12/22/16 04:00 Intake and Output: 12/22/16 12/22/16 06:59 18:59 Intake Total 1216 Balance 1216 - Medications Medications: Current Medications Acetaminophen (Tylenol 650mg/20.3ml Solution Ud) 650 mg PO Q4 PRN PRN Reason: Temperature Last Admin: 12/17/16 23:54 Dose: 650 mg Albuterol/Ipratropium (Duoneb 3 Mg/0.5 Mg (3 Ml) Ud) 3 ml INH RQID [facility] Last Admin: 12/21/16 19:56 Dose: 3 ml Enoxaparin Sodium (Lovenox) 40 mg SC DAILY [facility] PRN Reason: Protocol Last Admin: 12/21/16 08:45 Dose: 40 mg Ciprofloxacin (Cipro 400mg/200ml Dsw) 400 mg in 200 mls @ 200 mls/hr IVPB Q12 [facility] Last Admin: 12/21/16 21:09 Dose: 200 mls/hr Vancomycin HCl 1 gm/ Sodium (Chloride) 250 mls @ 166.667 mls/hr IVPB DAILY [facility] Last Admin: 12/21/16 10:32 Dose: 166.667 mls/hr Piperacillin Sod/Tazobactam (Sod 3.375 gm/ Sodium Chloride) 100 mls @ 100 mls/ hr IVPB Q6 [facility] Last Admin: 12/22/16 03:53 Dose: 100 mls/hr Methylprednisolone 60 mg/ (Sodium Chloride) 50 mls @ 100 mls/hr IVPB Q12 [facility] Last Admin: 12/21/16 21:08 Dose: 100 mls/hr Propofol (Diprivan) 1,000 mg in 100 mls @ 2.1 mls/hr IV .Q24H [facility]; 5 MCG/KG/MIN PRN Reason: Protocol Stop: 12/22/16 14:05 Last Titration: 12/21/16 23:00 Dose: 15 mcg/kg/min, 6.3 mls/hr Insulin Human Lispro (Humalog) 0 units SC Q6H [facility] PRN Reason: Protocol Last Admin: 12/22/16 06:20 Dose: 5 units Lorazepam (Ativan) 1 mg IVP Q6 PRN PRN Reason: Agitation Last Admin: 12/21/16 21:24 Dose: 1 mg Pantoprazole Sodium (Protonix Inj) 40 mg IVP DAILY [facility] Last Admin: 12/21/16 08:52 Dose: 40 mg - Labs Labs: 12/22/16 04:55 12/22/16 04:55 PT 12.9 SECONDS (9.6-11.2) H 12/18/16 04:40 INR 1.24 (0.92-1.08) H 12/18/16 04:40 APTT 26.6 SECONDS (23.3-32.5) 12/18/16 04:40 - Constitutional Appears: Non-toxic, No Acute Distress, Agitated, Chronically Ill - Head Exam Head Exam: ATRAUMATIC, NORMAL INSPECTION, NORMOCEPHALIC - Eye Exam Eye Exam: EOMI, Normal appearance, PERRL Pupil Exam: NORMAL ACCOMODATION, PERRL - ENT Exam ENT Exam: Mucous Membranes Moist, Normal Exam - Neck Exam Neck Exam: Full ROM, Normal Inspection. absent: Lymphadenopathy - Respiratory Exam Respiratory Exam: Clear to Ausculation Bilateral, NORMAL BREATHING PATTERN Additional comments: vented - Cardiovascular Exam Cardiovascular Exam: REGULAR RHYTHM, RRR, +S1, +S2. absent: Murmur - GI/Abdominal Exam GI & Abdominal Exam: Soft, Normal Bowel Sounds. absent: Tenderness - Rectal Exam Rectal Exam: NORMAL INSPECTION - Extremities Exam Extremities Exam: Full ROM, Normal Capillary Refill, Normal Inspection. absent : Joint Swelling, Pedal Edema - Back Exam Back Exam: NORMAL INSPECTION - Neurological Exam Neurological Exam: Abnormal Gait, Altered, CN II-XII Intact, Normal Gait, Oriented x3 - Psychiatric Exam Psychiatric exam: Normal Affect, Normal Mood - Skin Skin Exam: Dry, Intact, Normal Color, Warm Assessment and Plan (1) Pneumonia Assessment & Plan: cont anbx, weaning protocols pulm, ID, icu cxr Status: Acute (2) Respiratory failure Assessment & Plan: vent, sedation icu care weaning protocols Status: Acute (3) Altered mental status Assessment & Plan: ?? icu delerium case d/c w/ sonon sequlae of this Status: Acute (4) DVT prophylaxis Assessment & Plan: scd and aehose anticoag Status: Acute
[2016-12-22] MEDS: methylPREDNISolone 60 MG in Sodium Chloride 0.9% 50 ML IVPB SCH ×2 (08:09→20:18)
[2016-12-22] MEDS: Enoxaparin 40 mg Syringe SC SCH (08:10)
[2016-12-22] MEDS: Albuterol-Ipratrop 3 mg / 0.5 (3 ml) UD INH SCH ×4 (08:39→20:05)
--- NOTE | 2016-12-22 09:21 | PN ---
DATE: 12/21/2016 The patient is seen in the ICU, remains vented and sedated on 12/21/2016. Blood pressure of 100 systolic. Case discussed with Dr. Cedeno at bedside. The patient is still pulling at restraints, in no distress. CO2 of 35, monitorin sinus rhythm in 70s. Labs reviewed. The patient to be weaned today. Was weaned yesterday, but had to be reintubated. REVIEW OF SYSTEMS: Periods of agitation when sedation is removed. PHYSICAL EXAMINATION: GENERAL: Sedated, agitated when sedation is removed. HEART: Regular rate and rhythm. No murmurs, rubs, or gallops. LUNGS: Clear to all mccauley bilaterally. ABDOMEN: Soft, nontender. Bowel sounds x 4. EXTREMITIES: Distal pulses, motor sensation intact. Cap refill is brisk. DIAGNOSES AND PLAN: 1. Respiratory failure . Pulmonary and infectious disease consult. Continue all antibiotics. Continue pressors, fluids. We will continue weaning protocols and continue to follow closely. 2. Deep venous thrombosis prophylaxis. scd and aehose hold anticoagulation. 3. Agitation. Case discussed at length with Dr. Cedeno about balancing out agitation control with respiratory tract. We will continue to follow the patient closely. We will discuss that with family. Juni ROSALES cc: [id number] TT: 12/21/2016 10:32:32 Confirmation # [id number] Dictation # [id number] 12/22/2016 08:20:26 CATHLEEN
--- NOTE | 2016-12-22 10:43 | RAD ---
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 NGT is present, the tip of which overlies left upper quadrant of the abdomen in the region of the fundus of the stomach. Bibasilar atelectasis and or infiltrates and bilateral effusions. PLEURA: As above. No apparent pneumothorax. CARDIOVASCULAR: Heart size appears enlarged. OSSEOUS STRUCTURES: No significant abnormalities. VISUALIZED UPPER ABDOMEN: Normal. OTHER FINDINGS: None. 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 NGT is present, the tip of which overlies left upper quadrant of the abdomen in the region of the fundus of the stomach. Bibasilar atelectasis and or infiltrates and bilateral effusions.
[2016-12-22] MEDS: Ciprofloxacin 400mg/200ml D5W 400 MG/200 ML BAG IVPB SCH ×2 (11:36→20:17)
[2016-12-22 12:09] LABS: ABG ALLEN TEST YES; ARTERIAL BLOOD GAS HCO3 26.4 mmol/L (21-28); ARTERIAL BLOOD GAS O2 CAPACITY 14.4 mL/dL (16-24); ARTERIAL BLOOD GAS O2 CONTENT 13.5 ML/dL (15-23); ARTERIAL BLOOD GAS PH 7.48 (7.35-7.45); ARTERIAL BLOOD GAS PO2 52 mm/Hg (80-100); ARTERIAL BLOOD HGB O2 SAT 90.6 % (95.0-98.0); ATERIAL BLOOD GAS PEEP 5; CARBOXYHEMOGLOBIN 1.7 % (0.5-1.5); HHB 5.9 % (0.0-5.0); METHEMOGLOBIN 1.8 % (0.0-3.0)
--- NOTE | 2016-12-22 14:05 | CP.CCUPN ---
CCU Subjective - Physician Review Events Since Last Encounter (Free Text): 12/22/16 The Patient was seen and examined at the bedside, Medical records reviewed, all clinical/lab/hemodynamic/radiographic data were reviewed and management issues were discussed and formulated, Events reviewed Pain issues, skin care, head of the bed elevation, GI/DVT prophylaxis, glycemic control were addressed. On light sedation with propofol Awake, follows simple commands Afebrile and hemodynamically stable He was placed on CPAP5 PS15 at 9AM, PS decreased to 10 at 11AM, ABG done at 12PM reviewed CCU Objective - Vital Signs / Intake & Output Vital Signs (Last 4 hours): Vital Signs Temp Pulse Resp BP Pulse Ox 12/22/16 12:00 98.2 F 94 H 19 119/68 99 12/22/16 11:00 88 12 104/56 L 100 Intake and Output (Last 8hrs): Intake & Output 12/21/16 12/22/16 12/22/16 22:59 06:59 14:59 Intake Total 1426 1352 723 Output Total 500 Balance 926 1352 723 Intake: IV 466 592 203 Intake, Piggyback 350 100 400 Tube Feeding 360 360 120 Free Water Flush 250 300 Output: Urine 500 Urethral (Webb) 500 Other: # Voids Urethral (Webb) 400 # Bowel Movements 1 1 - Physical Exam Head: Positive for: Atraumatic, Normocephalic Pupils: Positive for: PERRL Mouth: Positive for: Dry Respiratory/Chest: Positive for: Other (On mechanical ventilation. B/L air entry present with low pitched rhonchii appreciated b/l. No wheezes audible. ). Negative for: Accessory Muscle Use Cardiovascular: Positive for: Regular Rate and Rhythm. Negative for: Murmurs Abdomen: Positive for: Normal Bowel Sounds. Negative for: Distention, Mass/ Organomegaly Lower Extremity: Positive for: Other (Left heel chronic eschar formation present measuring approximately [id number] with no active bleeding or drainage. ) . Negative for: Edema Neurological: Positive for: Other (Moving extremities spontaneously.) Skin: Positive for: Warm, Dry, Other (Right groin TLC site clean and dry with no surrounding erythema. ) Psychiatric: Positive for: Other (Alert at times but non-verbal on vent and unable to follow simple commands. ) - Medications Active Medications: Active Medications Generic Name Dose Route Start Last Admin Trade Name Freq PRN Reason Stop Dose Admin Acetaminophen 650 mg 12/17/16 23:08 12/17/16 23:54 Tylenol 650mg/20.3ml Solution Ud PO 650 mg Q4 PRN Administration Temperature Albuterol/Ipratropium 3 ml 12/20/16 12:00 12/22/16 11:51 Duoneb 3 Mg/0.5 Mg (3 Ml) Ud INH 3 ml RQID MALA Administration Enoxaparin Sodium 40 mg 12/20/16 09:00 12/22/16 08:10 Lovenox SC 40 mg DAILY MALA Administration Protocol Ciprofloxacin 400 mg in 200 mls @ 200 mls/hr 12/17/16 21:00 12/22/16 11:36 Cipro 400mg/200ml Dsw IVPB 200 mls/hr Q12 MALA Administration Vancomycin HCl 1 gm/ Sodium 250 mls @ 166.667 mls/hr 12/18/16 09:00 12/22/16 08:43 Chloride IVPB 166.667 mls/hr DAILY MALA Administration Piperacillin Sod/Tazobactam 100 mls @ 100 mls/hr 12/17/16 16:00 12/22/16 11: 04 Sod 3.375 gm/ Sodium Chloride IVPB 100 mls/hr Q6 MALA Administration Methylprednisolone 60 mg/ 50 mls @ 100 mls/hr 12/20/16 11:30 12/22/16 08:09 Sodium Chloride IVPB 100 mls/hr Q12 MALA Administration Norepinephrine Bitartrate 8 mg 258 mls @ 4.83 mls/hr 12/22/16 08:05 / Dextrose IV 12/23/16 08:04 .Q24H ONE Protocol 2.5 MCG/MIN Insulin Human Lispro 0 units 12/20/16 23:45 12/22/16 11:39 Humalog SC 4 units Q6H MALA Administration Protocol Lorazepam 1 mg 12/18/16 03:37 12/21/16 21:24 Ativan IVP 1 mg Q6 PRN Administration Agitation Pantoprazole Sodium 40 mg 12/17/16 12:30 12/22/16 08:28 Protonix Inj IVP 40 mg DAILY MALA Administration - Patient Studies Lab Studies: Lab Studies 12/22/16 12/22/16 12/22/16 Range/Units 12:00 11:16 06:17 WBC (4.8-10.8) K/uL RBC (4.40-5.90) Mil/uL Hgb (12.0-18.0) g/dL Hct (35.0-51.0) % MCV (80.0-94.0) fl MCH (27.0-31.0) pg MCHC (33.0-37.0) g/dL RDW (11.5-14.5) % Plt Count (130-400) K/uL pCO2 34 L (35-45) mm/Hg pO2 52 L (80-100) mm/Hg HCO3 26.4 (21-28) mmol/L ABG pH 7.48 H (7.35-7.45) ABG Total CO2 26.3 (22-28) mmol/L ABG O2 Saturation 93.9 L (95-98) % ABG O2 Content 13.5 L (15-23) ML/dL ABG Base Excess 2.0 (-2.0-3.0) mmol/L ABG Hemoglobin 10.6 L (11.7-17.4) g/dL ABG Carboxyhemoglobin 1.7 H (0.5-1.5) % POC ABG HHb (Measured) 5.9 H (0.0-5.0) % ABG Methemoglobin 1.8 (0.0-3.0) % ABG O2 Capacity 14.4 L (16-24) mL/dL Mo Test Yes A-a O2 Difference 191.0 mm/Hg Hgb O2 Saturation 90.6 L (95.0-98.0) % Vent Mode Mechanical Rate FiO2 40.0 % Tidal Volume PEEP 5 CPAP 10 Sodium (132-148) mmol/l Potassium (3.6-5.0) MMOL/L Chloride (98-107) mmol/L Carbon Dioxide (22-30) mmol/L Anion Gap (10-20) BUN (9-20) mg/dl Creatinine (0.8-1.5) mg/dL Est GFR ( Amer) Est GFR (Non-Af Amer) POC Glucose (mg/dL) 337 H 358 H (65-110) mg/dL Random Glucose (75-110) mg/dL Calcium (8.4-10.2) mg/dL Total Bilirubin (0.2-1.3) mg/dl AST (17-59) U/L ALT (21-72) U/L Alkaline Phosphatase (38-126) U/L Total Protein (6.3-8.2) G/DL Albumin (3.5-5.0) g/dL Globulin (2.2-3.9) gm/dL Albumin/Globulin Ratio (1.0-2.1) 12/22/16 12/22/16 12/22/16 Range/Units 04:55 04:55 04:40 WBC 16.3 H D (4.8-10.8) K/uL RBC 3.46 L (4.40-5.90) Mil/uL Hgb 10.9 L (12.0-18.0) g/dL Hct 33.2 L (35.0-51.0) % MCV 95.9 H (80.0-94.0) fl MCH 31.4 H (27.0-31.0) pg MCHC 32.7 L (33.0-37.0) g/dL RDW 13.7 (11.5-14.5) % Plt Count 167 (130-400) K/uL pCO2 35 (35-45) mm/Hg pO2 59 L (80-100) mm/Hg HCO3 26.4 (21-28) mmol/L ABG pH 7.47 H (7.35-7.45) ABG Total CO2 26.6 (22-28) mmol/L ABG O2 Saturation 96.1 (95-98) % ABG O2 Content 14.1 L (15-23) ML/dL ABG Base Excess 2.0 (-2.0-3.0) mmol/L ABG Hemoglobin 10.8 L (11.7-17.4) g/dL ABG Carboxyhemoglobin 1.6 H (0.5-1.5) % POC ABG HHb (Measured) 3.8 (0.0-5.0) % ABG Methemoglobin 1.7 (0.0-3.0) % ABG O2 Capacity 14.7 L (16-24) mL/dL Mo Test Yes A-a O2 Difference 182.0 mm/Hg Hgb O2 Saturation 92.9 L (95.0-98.0) % Vent Mode A/c Mechanical Rate 10 FiO2 40.0 % Tidal Volume 450 PEEP 5 CPAP Sodium 140 (132-148) mmol/l Potassium 4.2 (3.6-5.0) MMOL/L Chloride 107 (98-107) mmol/L Carbon Dioxide 25 (22-30) mmol/L Anion Gap 12 (10-20) BUN 23 H (9-20) mg/dl Creatinine 1.0 (0.8-1.5) mg/dL Est GFR ( Amer) > 60 Est GFR (Non-Af Amer) > 60 POC Glucose (mg/dL) (65-110) mg/dL Random Glucose 387 H (75-110) mg/dL Calcium 8.6 (8.4-10.2) mg/dL Total Bilirubin 0.2 (0.2-1.3) mg/dl AST 23 (17-59) U/L ALT 39 (21-72) U/L Alkaline Phosphatase 144 H D (38-126) U/L Total Protein 4.9 L (6.3-8.2) G/DL Albumin 2.2 L (3.5-5.0) g/dL Globulin 2.7 (2.2-3.9) gm/dL Albumin/Globulin Ratio 0.8 L (1.0-2.1) 12/22/16 12/21/16 Range/Units 00:07 18:01 WBC (4.8-10.8) K/uL RBC (4.40-5.90) Mil/uL Hgb (12.0-18.0) g/dL Hct (35.0-51.0) % MCV (80.0-94.0) fl MCH (27.0-31.0) pg MCHC (33.0-37.0) g/dL RDW (11.5-14.5) % Plt Count (130-400) K/uL pCO2 (35-45) mm/Hg pO2 (80-100) mm/Hg HCO3 (21-28) mmol/L ABG pH (7.35-7.45) ABG Total CO2 (22-28) mmol/L ABG O2 Saturation (95-98) % ABG O2 Content (15-23) ML/dL ABG Base Excess (-2.0-3.0) mmol/L ABG Hemoglobin (11.7-17.4) g/dL ABG Carboxyhemoglobin (0.5-1.5) % POC ABG HHb (Measured) (0.0-5.0) % ABG Methemoglobin (0.0-3.0) % ABG O2 Capacity (16-24) mL/dL Mo Test A-a O2 Difference mm/Hg Hgb O2 Saturation (95.0-98.0) % Vent Mode Mechanical Rate FiO2 % Tidal Volume PEEP CPAP Sodium (132-148) mmol/l Potassium (3.6-5.0) MMOL/L Chloride (98-107) mmol/L Carbon Dioxide (22-30) mmol/L Anion Gap (10-20) BUN (9-20) mg/dl Creatinine (0.8-1.5) mg/dL Est GFR ( Amer) Est GFR (Non-Af Amer) POC Glucose (mg/dL) 405 H* 286 H (65-110) mg/dL Random Glucose (75-110) mg/dL Calcium (8.4-10.2) mg/dL Total Bilirubin (0.2-1.3) mg/dl AST (17-59) U/L ALT (21-72) U/L Alkaline Phosphatase (38-126) U/L Total Protein (6.3-8.2) G/DL Albumin (3.5-5.0) g/dL Globulin (2.2-3.9) gm/dL Albumin/Globulin Ratio (1.0-2.1) Laboratory Results - last 24 hr 12/21/16 12/22/16 12/22/16 18:01 00:07 04:40 WBC RBC Hgb Hct MCV MCH MCHC RDW Plt Count pCO2 35 pO2 59 L HCO3 26.4 ABG pH 7.47 H ABG Total CO2 26.6 ABG O2 Saturation 96.1 ABG O2 Content 14.1 L ABG Base Excess 2.0 ABG Hemoglobin 10.8 L ABG Carboxyhemoglobin 1.6 H POC ABG HHb (Measured) 3.8 ABG Methemoglobin 1.7 ABG O2 Capacity 14.7 L Mo Test Yes A-a O2 Difference 182.0 Hgb O2 Saturation 92.9 L Vent Mode A/c Mechanical Rate 10 FiO2 40.0 Tidal Volume 450 PEEP 5 CPAP Sodium Potassium Chloride Carbon Dioxide Anion Gap BUN Creatinine Est GFR ( Amer) Est GFR (Non-Af Amer) POC Glucose (mg/dL) 286 H 405 H* Random Glucose Calcium Total Bilirubin AST ALT Alkaline Phosphatase Total Protein Albumin Globulin Albumin/Globulin Ratio 12/22/16 12/22/16 12/22/16 04:55 04:55 06:17 WBC 16.3 H D RBC 3.46 L Hgb 10.9 L Hct 33.2 L MCV 95.9 H MCH 31.4 H MCHC 32.7 L RDW 13.7 Plt Count 167 pCO2 pO2 HCO3 ABG pH ABG Total CO2 ABG O2 Saturation ABG O2 Content ABG Base Excess ABG Hemoglobin ABG Carboxyhemoglobin POC ABG HHb (Measured) ABG Methemoglobin ABG O2 Capacity Mo Test A-a O2 Difference Hgb O2 Saturation Vent Mode Mechanical Rate FiO2 Tidal Volume PEEP CPAP Sodium 140 Potassium 4.2 Chloride 107 Carbon Dioxide 25 Anion Gap 12 BUN 23 H Creatinine 1.0 Est GFR ( Amer) > 60 Est GFR (Non-Af Amer) > 60 POC Glucose (mg/dL) 358 H Random Glucose 387 H Calcium 8.6 Total Bilirubin 0.2 AST 23 ALT 39 Alkaline Phosphatase 144 H D Total Protein 4.9 L Albumin 2.2 L Globulin 2.7 Albumin/Globulin Ratio 0.8 L 12/22/16 12/22/16 11:16 12:00 WBC RBC Hgb Hct MCV MCH MCHC RDW Plt Count pCO2 34 L pO2 52 L HCO3 26.4 ABG pH 7.48 H ABG Total CO2 26.3 ABG O2 Saturation 93.9 L ABG O2 Content 13.5 L ABG Base Excess 2.0 ABG Hemoglobin 10.6 L ABG Carboxyhemoglobin 1.7 H POC ABG HHb (Measured) 5.9 H ABG Methemoglobin 1.8 ABG O2 Capacity 14.4 L Mo Test Yes A-a O2 Difference 191.0 Hgb O2 Saturation 90.6 L Vent Mode Mechanical Rate FiO2 40.0 Tidal Volume PEEP 5 CPAP 10 Sodium Potassium Chloride Carbon Dioxide Anion Gap BUN Creatinine Est GFR ( Amer) Est GFR (Non-Af Amer) POC Glucose (mg/dL) 337 H Random Glucose Calcium Total Bilirubin AST ALT Alkaline Phosphatase Total Protein Albumin Globulin Albumin/Globulin Ratio Fingerstick Blood Sugar Results: 337 Critical Care Progress Note - Ventilator Checklist Head of Bed 30 Degrees: Yes Daily Sedation Vacation: Yes Daily Assessment of Readiness to Wean: Yes Daily Spontaneous Breathing Trial: Yes PUD Prophalyxis: Yes DVT Prophylaxis: Yes Oral Care with Chlorhexidine Gluconate {CHG}: Yes Assessment/Plan (1) Acute respiratory failure with hypercapnia Current Visit: Yes Status: Acute Comment: Wean to extubated today Continue broad expectrum Antibiotics Aggressive Pulmonary toilets (2) Pneumonia Current Visit: Yes Status: Acute (3) Altered mental status Current Visit: No Status: Acute Comment: Resolving Multifacrorial, Toxic/Metabolic encephalopathy Neurocheck (4) COPD exacerbation Current Visit: No Status: Acute Comment: IV Methylprednisolone Strict Is & Os
--- NOTE | 2016-12-22 14:24 | PCM.PROC ---
Procedures Attestation:: I certify that I have explained the specified Operation(s) or Procedure(s), risks, benefits and reasonable alternatives to the Patient and/or other person responsible. The opportunity was given to ask questions and all questions answered - Extubation Clinical Parameters: Resolution/Stabilization of disease process, Hemodynamically Stable, Intact Cough/Gag Reflex, Spontaneous Respirations, Acceptable Vent Settings (FIO2<50%, PEEP<8, PaO2>75, pH>7.25) Weaning Criteria Met: Yes General Weaning Approaches: Pressure Support Ventilation (PSV) Weaning Patient Condition: Patient has been successfully extubated and assessed Oxygen Therapy: O2 via Venti Mask Patient Tolerated Procedure: Well
[2016-12-22] MEDS: Sodium Chloride 0.9% 1,000 ML IV SCH (20:39)
[2016-12-23 06:46] LABS: HEMATOCRIT 32.8 % (35.0-51.0); MEAN CELL VOLUME 95.5 fl (80.0-94.0); MEAN CORPUSCULAR HGB CONC 32.4 g/dL (33.0-37.0); RED CELL DISTRIBUTION WIDTH 13.6 % (11.5-14.5)
[2016-12-23 06:53] LABS: BLOOD UREA NITROGEN 24 mg/dl (9-20); CALCIUM 8.2 mg/dL (8.4-10.2); CARBON DIOXIDE 26 mmol/L (22-30); CHLORIDE 110 mmol/L (98-107); GFR AFRICAN-AMERICAN > 60; GLUCOSE,RANDOM 260 mg/dL (75-110); POTASSIUM 3.9 MMOL/L (3.6-5.0); SODIUM 142 mmol/l (132-148)
[2016-12-23] MEDS: Insulin Lispro (humaLOG) 100 Units/ml Inj SC SCH ×4 (07:14→23:17)
[2016-12-23] MEDS: Albuterol-Ipratrop 3 mg / 0.5 (3 ml) UD INH SCH ×4 (08:00→19:40)
[2016-12-23] MEDS: Ciprofloxacin 400mg/200ml D5W 400 MG/200 ML BAG IVPB SCH ×2 (08:57→20:14)
[2016-12-23] MEDS: Enoxaparin 40 mg Syringe SC SCH (09:01)
[2016-12-23] MEDS: methylPREDNISolone 60 MG in Sodium Chloride 0.9% 50 ML IVPB SCH ×2 (09:01→20:14)
--- NOTE | 2016-12-23 09:06 | CP.PCM.PN ---
Subjective - Date & Time of Evaluation Date of Evaluation: 12/23/16 Time of Evaluation: 09:07 - Subjective Subjective: extubated on nc o2 o2 sat-100% Objective - Vital Signs/Intake and Output Vital Signs (last 24 hours): Temp Pulse Resp BP Pulse Ox 98.2 F 90 18 96/63 L 98 12/23/16 07:52 12/23/16 07:52 12/23/16 07:52 12/23/16 07:52 12/23/16 07:52 Intake and Output: 12/23/16 12/23/16 06:59 18:59 Intake Total 1333 168 Balance 1333 168 - Medications Medications: Current Medications Acetaminophen (Tylenol 650mg/20.3ml Solution Ud) 650 mg PO Q4 PRN PRN Reason: Temperature Last Admin: 12/17/16 23:54 Dose: 650 mg Albuterol/Ipratropium (Duoneb 3 Mg/0.5 Mg (3 Ml) Ud) 3 ml INH RQID [facility] Last Admin: 12/22/16 20:05 Dose: 3 ml Ciprofloxacin (Cipro 400mg/200ml Dsw) 400 mg in 200 mls @ 200 mls/hr IVPB Q12 MALA Last Admin: 12/23/16 08:57 Dose: 200 mls/hr Vancomycin HCl 1 gm/ Sodium (Chloride) 250 mls @ 166.667 mls/hr IVPB DAILY [facility] Last Admin: 12/23/16 09:02 Dose: 166.667 mls/hr Methylprednisolone 60 mg/ (Sodium Chloride) 50 mls @ 100 mls/hr IVPB Q12 [facility] Last Admin: 12/23/16 09:01 Dose: 100 mls/hr Sodium Chloride (Sodium Chloride 0.9%) 1,000 mls @ 75 mls/hr IV .[id number] [facility] Stop: 12/23/16 20:30 Last Admin: 12/22/16 20:39 Dose: 75 mls/hr Insulin Human Lispro (Humalog) 0 units SC Q6H MALA PRN Reason: Protocol Last Admin: 12/23/16 07:14 Dose: 3 units Lorazepam (Ativan) 1 mg IVP Q6 PRN PRN Reason: Agitation Last Admin: 12/23/16 07:13 Dose: 1 mg Pantoprazole Sodium (Protonix Inj) 40 mg IVP DAILY [facility] Last Admin: 12/22/16 08:28 Dose: 40 mg - Labs Labs: 12/23/16 06:15 12/23/16 06:15 PT 12.9 SECONDS (9.6-11.2) H 12/18/16 04:40 INR 1.24 (0.92-1.08) H 12/18/16 04:40 APTT 26.6 SECONDS (23.3-32.5) 12/18/16 04:40 - Constitutional Appears: Agitated - Head Exam Head Exam: ATRAUMATIC, NORMAL INSPECTION, NORMOCEPHALIC - Eye Exam Eye Exam: EOMI, Normal appearance, PERRL Pupil Exam: NORMAL ACCOMODATION, PERRL - ENT Exam ENT Exam: Mucous Membranes Moist, Normal Exam - Neck Exam Neck Exam: Full ROM, Normal Inspection. absent: Lymphadenopathy - Respiratory Exam Respiratory Exam: Prolonged Expiratory Phase, Rales, NORMAL BREATHING PATTERN - Cardiovascular Exam Cardiovascular Exam: REGULAR RHYTHM, +S1, +S2. absent: Murmur - GI/Abdominal Exam GI & Abdominal Exam: Soft, Normal Bowel Sounds. absent: Tenderness - Rectal Exam Rectal Exam: NORMAL INSPECTION - Extremities Exam Extremities Exam: Full ROM, Normal Capillary Refill, Normal Inspection. absent : Joint Swelling, Pedal Edema - Back Exam Back Exam: NORMAL INSPECTION - Neurological Exam Neurological Exam: Alert, Awake, CN II-XII Intact - Skin Skin Exam: Dry, Intact, Normal Color, Warm Assessment and Plan - Assessment and Plan (Free Text) Assessment: respiratory failure pneumonia Plan: continue antibiotic and bronchodilator rx anti-anxiety meds
--- NOTE | 2016-12-23 09:54 | CP.CCUPN ---
<Shashank Segura - Last Filed: 12/23/16 14:20> CCU Subjective - Physician Review Subjective (Free Text): 12/23/16 10:04 Patient seen and examined at bedside during morning rounds. He was extubated yesterday and placed on Ventimask which was later switched to nasal canula. Patient has been saturating between 98-99% on 3L NC. He has been agitated overnight, trying to pull off tubes/lines. He opens eyes during assessment and mumbles incoherently but is not following basic commands. BP stable this morning at 115/58 without pressors and remains afebrile. CCU Objective - Vital Signs / Intake & Output Vital Signs (Last 4 hours): Vital Signs Temp Pulse Resp BP Pulse Ox 12/23/16 07:52 98.2 F 90 18 96/63 L 98 12/23/16 06:00 90 14 97/17 L 97 Intake and Output (Last 8hrs): Intake & Output 12/22/16 12/23/16 12/23/16 22:59 06:59 14:59 Intake Total 1297 840 168 Output Total 300 Balance 997 840 168 Intake: IV 747 600 168 Intake, Piggyback 550 Oral 240 Output: Urine 300 Urethral (Webb) 300 Other: # Bowel Movements 1 - Physical Exam Head: Positive for: Atraumatic, Normocephalic Pupils: Positive for: PERRL Mouth: Positive for: Dry Respiratory/Chest: Positive for: Other (B/L air entry present with low pitched rhonchii appreciated, primarily at lung bases. No wheezes audible. ). Negative for: Respiratory Distress, Accessory Muscle Use Cardiovascular: Positive for: Regular Rate and Rhythm. Negative for: Murmurs Abdomen: Positive for: Normal Bowel Sounds. Negative for: Distention, Mass/ Organomegaly Lower Extremity: Positive for: Edema (3+), Other (Left heel chronic eschar measuring approximately [id number] with no active bleeding or drainage. ) Neurological: Positive for: Other (Moving extremities spontaneously.) Skin: Positive for: Warm, Dry, Other (Left groin TLC site clean and dry with no surrounding erythema. ) Psychiatric: Positive for: Other (Alert at times but non-verbal and unable to follow commands. ) - Medications Active Medications: Active Medications Generic Name Dose Route Start Last Admin Trade Name Freq PRN Reason Stop Dose Admin Acetaminophen 650 mg 12/17/16 23:08 12/17/16 23:54 Tylenol 650mg/20.3ml Solution Ud PO 650 mg Q4 PRN Administration Temperature Albuterol/Ipratropium 3 ml 12/20/16 12:00 12/23/16 08:00 Duoneb 3 Mg/0.5 Mg (3 Ml) Ud INH Not Given RQID MALA Ciprofloxacin 400 mg in 200 mls @ 200 mls/hr 12/17/16 21:00 12/23/16 08:57 Cipro 400mg/200ml Dsw IVPB 200 mls/hr Q12 [facility]A Administration Vancomycin HCl 1 gm/ Sodium 250 mls @ 166.667 mls/hr 12/18/16 09:00 12/23/16 09:02 Chloride IVPB 166.667 mls/hr DAILY [facility]A Administration Methylprednisolone 60 mg/ 50 mls @ 100 mls/hr 12/20/16 11:30 12/23/16 09:01 Sodium Chloride IVPB 100 mls/hr Q12 MALA Administration Sodium Chloride 1,000 mls @ 75 mls/hr 12/22/16 20:30 12/22/16 20:39 Sodium Chloride 0.9% IV 12/23/16 20:30 75 mls/hr .[id number] MALA Administration Insulin Human Lispro 0 units 12/20/16 23:45 12/23/16 07:14 Humalog SC 3 units Q6H MALA Administration Protocol Lorazepam 1 mg 12/18/16 03:37 12/23/16 07:13 Ativan IVP 1 mg Q6 PRN Administration Agitation Pantoprazole Sodium 40 mg 12/17/16 12:30 12/22/16 08:28 Protonix Inj IVP 40 mg DAILY MALA Administration - Patient Studies Lab Studies: Microbiology Studies 12/21/16 08:05 Gram Stain - Final Trachasp Sputum Culture - Final Yeast Species Lab Studies 12/23/16 12/23/16 12/23/16 Range/Units 06:15 06:15 06:10 WBC 13.0 H (4.8-10.8) K/uL RBC 3.43 L (4.40-5.90) Mil/uL Hgb 10.6 L (12.0-18.0) g/dL Hct 32.8 L (35.0-51.0) % MCV 95.5 H (80.0-94.0) fl MCH 31.0 (27.0-31.0) pg MCHC 32.4 L (33.0-37.0) g/dL RDW 13.6 (11.5-14.5) % Plt Count 139 (130-400) K/uL pCO2 (35-45) mm/Hg pO2 (80-100) mm/Hg HCO3 (21-28) mmol/L ABG pH (7.35-7.45) ABG Total CO2 (22-28) mmol/L ABG O2 Saturation (95-98) % ABG O2 Content (15-23) ML/dL ABG Base Excess (-2.0-3.0) mmol/L ABG Hemoglobin (11.7-17.4) g/dL ABG Carboxyhemoglobin (0.5-1.5) % POC ABG HHb (Measured) (0.0-5.0) % ABG Methemoglobin (0.0-3.0) % ABG O2 Capacity (16-24) mL/dL Mo Test A-a O2 Difference mm/Hg Hgb O2 Saturation (95.0-98.0) % FiO2 % PEEP CPAP Sodium 142 (132-148) mmol/l Potassium 3.9 (3.6-5.0) MMOL/L Chloride 110 H (98-107) mmol/L Carbon Dioxide 26 (22-30) mmol/L Anion Gap 10 (10-20) BUN 24 H (9-20) mg/dl Creatinine 0.9 (0.8-1.5) mg/dL Est GFR ( Amer) > 60 Est GFR (Non-Af Amer) > 60 POC Glucose (mg/dL) 294 H (65-110) mg/dL Random Glucose 260 H (75-110) mg/dL Calcium 8.2 L (8.4-10.2) mg/dL 12/22/16 12/22/16 12/22/16 Range/Units 21:48 15:59 12:00 WBC (4.8-10.8) K/uL RBC (4.40-5.90) Mil/uL Hgb (12.0-18.0) g/dL Hct (35.0-51.0) % MCV (80.0-94.0) fl MCH (27.0-31.0) pg MCHC (33.0-37.0) g/dL RDW (11.5-14.5) % Plt Count (130-400) K/uL pCO2 34 L (35-45) mm/Hg pO2 52 L (80-100) mm/Hg HCO3 26.4 (21-28) mmol/L ABG pH 7.48 H (7.35-7.45) ABG Total CO2 26.3 (22-28) mmol/L ABG O2 Saturation 93.9 L (95-98) % ABG O2 Content 13.5 L (15-23) ML/dL ABG Base Excess 2.0 (-2.0-3.0) mmol/L ABG Hemoglobin 10.6 L (11.7-17.4) g/dL ABG Carboxyhemoglobin 1.7 H (0.5-1.5) % POC ABG HHb (Measured) 5.9 H (0.0-5.0) % ABG Methemoglobin 1.8 (0.0-3.0) % ABG O2 Capacity 14.4 L (16-24) mL/dL Mo Test Yes A-a O2 Difference 191.0 mm/Hg Hgb O2 Saturation 90.6 L (95.0-98.0) % FiO2 40.0 % PEEP 5 CPAP 10 Sodium (132-148) mmol/l Potassium (3.6-5.0) MMOL/L Chloride (98-107) mmol/L Carbon Dioxide (22-30) mmol/L Anion Gap (10-20) BUN (9-20) mg/dl Creatinine (0.8-1.5) mg/dL Est GFR ( Amer) Est GFR (Non-Af Amer) POC Glucose (mg/dL) 215 H 354 H (65-110) mg/dL Random Glucose (75-110) mg/dL Calcium (8.4-10.2) mg/dL 12/22/16 Range/Units 11:16 WBC (4.8-10.8) K/uL RBC (4.40-5.90) Mil/uL Hgb (12.0-18.0) g/dL Hct (35.0-51.0) % MCV (80.0-94.0) fl MCH (27.0-31.0) pg MCHC (33.0-37.0) g/dL RDW (11.5-14.5) % Plt Count (130-400) K/uL pCO2 (35-45) mm/Hg pO2 (80-100) mm/Hg HCO3 (21-28) mmol/L ABG pH (7.35-7.45) ABG Total CO2 (22-28) mmol/L ABG O2 Saturation (95-98) % ABG O2 Content (15-23) ML/dL ABG Base Excess (-2.0-3.0) mmol/L ABG Hemoglobin (11.7-17.4) g/dL ABG Carboxyhemoglobin (0.5-1.5) % POC ABG HHb (Measured) (0.0-5.0) % ABG Methemoglobin (0.0-3.0) % ABG O2 Capacity (16-24) mL/dL Mo Test A-a O2 Difference mm/Hg Hgb O2 Saturation (95.0-98.0) % FiO2 % PEEP CPAP Sodium (132-148) mmol/l Potassium (3.6-5.0) MMOL/L Chloride (98-107) mmol/L Carbon Dioxide (22-30) mmol/L Anion Gap (10-20) BUN (9-20) mg/dl Creatinine (0.8-1.5) mg/dL Est GFR ( Amer) Est GFR (Non-Af Amer) POC Glucose (mg/dL) 337 H (65-110) mg/dL Random Glucose (75-110) mg/dL Calcium (8.4-10.2) mg/dL Laboratory Results - last 24 hr 12/22/16 12/22/16 12/22/16 11:16 12:00 15:59 WBC RBC Hgb Hct MCV MCH MCHC RDW Plt Count pCO2 34 L pO2 52 L HCO3 26.4 ABG pH 7.48 H ABG Total CO2 26.3 ABG O2 Saturation 93.9 L ABG O2 Content 13.5 L ABG Base Excess 2.0 ABG Hemoglobin 10.6 L ABG Carboxyhemoglobin 1.7 H POC ABG HHb (Measured) 5.9 H ABG Methemoglobin 1.8 ABG O2 Capacity 14.4 L Mo Test Yes A-a O2 Difference 191.0 Hgb O2 Saturation 90.6 L FiO2 40.0 PEEP 5 CPAP 10 Sodium Potassium Chloride Carbon Dioxide Anion Gap BUN Creatinine Est GFR ( Amer) Est GFR (Non-Af Amer) POC Glucose (mg/dL) 337 H 354 H Random Glucose Calcium 12/22/16 12/23/16 12/23/16 21:48 06:10 06:15 WBC 13.0 H RBC 3.43 L Hgb 10.6 L Hct 32.8 L MCV 95.5 H MCH 31.0 MCHC 32.4 L RDW 13.6 Plt Count 139 pCO2 pO2 HCO3 ABG pH ABG Total CO2 ABG O2 Saturation ABG O2 Content ABG Base Excess ABG Hemoglobin ABG Carboxyhemoglobin POC ABG HHb (Measured) ABG Methemoglobin ABG O2 Capacity Mo Test A-a O2 Difference Hgb O2 Saturation FiO2 PEEP CPAP Sodium Potassium Chloride Carbon Dioxide Anion Gap BUN Creatinine Est GFR ( Amer) Est GFR (Non-Af Amer) POC Glucose (mg/dL) 215 H 294 H Random Glucose Calcium 12/23/16 06:15 WBC RBC Hgb Hct MCV MCH MCHC RDW Plt Count pCO2 pO2 HCO3 ABG pH ABG Total CO2 ABG O2 Saturation ABG O2 Content ABG Base Excess ABG Hemoglobin ABG Carboxyhemoglobin POC ABG HHb (Measured) ABG Methemoglobin ABG O2 Capacity Mo Test A-a O2 Difference Hgb O2 Saturation FiO2 PEEP CPAP Sodium 142 Potassium 3.9 Chloride 110 H Carbon Dioxide 26 Anion Gap 10 BUN 24 H Creatinine 0.9 Est GFR ( Amer) > 60 Est GFR (Non-Af Amer) > 60 POC Glucose (mg/dL) Random Glucose 260 H Calcium 8.2 L Fingerstick Blood Sugar Results: 296 Review of Systems - Review of Systems Systems not reviewed;Unavailable: Altered Mental Status - Constitutional Constitutional: absent: Fever Assessment/Plan - Assessment and Plan (Free Text) Assessment: 81 y/o M with PMH including Hypertension, NIDDM2 and recurrent pneumonia presented from halfway for respiratory distress and intubated by paramedics prior to ED arrival. In ED, patient was re-intubated after ETT was noted to be out of place. Patient was subsequently admitted with acute hypoxemic hypercapneic respiratory failure and sepsis with shock. Currently, patient has been extubated x1 day and is tolerating 3L O2 via nasal canula while satting well in 98-99% range however continues with AMS. Plan: Pneumonia -Possible aspiration pneumonia -Afebrile, WBC: 13.0 -CXR demonstrates lower lobe infiltrates/effusions -Sputum cultures from 12/17 and 12/21 revealed light growth of yeast species -On empiric Vancomycin 1gm IV daily (Started 12/18, current day 6), Ciprofloxacin 400mg IV Q12h (Started 12/17, current day 7) -Received Zosyn 3.375gm IV Q6h (12/17-12/22, for total of 6 days) -Pulmonology consultation appreciated Altered Mental Status -Patient has reported baseline dementia prior to this admission, with likely delirium -Etiology secondary to Hypoxia vs Sepsis vs Recently weaned from ventilator and sedation -CT head from 12/17 revealed no acute intracranial hemorrhage and mild to moderate chronic white matter ischemic changes -Troponin negative x4 -Holding psych meds with [employer] effects including Risperdal, Restoril, neurontin -Haldol 2mg IM Q6H prn for agitation -Will avoid benzodiazepines Sepsis with shock, Resolved -BP stable this morning without pressors -VBG lactate 1.9 -Urine culture no growth, final -Blood culture x2, no growth, final -Empiric antibiotics started on 12/17/16 -Received Zosyn 3.375gm IV Q6h (12/17-12/22, for total of 6 days) -Currently on empiric Vancomycin 1gm IV daily (Started 12/18, current day 6), Ciprofloxacin 400mg IV Q12h (Started 12/17, current day 7) Acute Hypoxemic Hypercapneic Respiratory Failure, Resolving -Etiology likely secondary to aspiration event vs pneumonia vs medication induced -Patient intubated on 12/17/16 and extubated on 12/22/16 after 6 days of mechanical ventilation -Tolerating 3L O2 via NC and satting at 98-99% Feeding -Will obtain speech/swallow evaluation today DVT Prophylaxis -Lovenox 40mg SC daily -SCDs <Harry Norwood V - Last Filed: 12/23/16 15:28> CCU Subjective - Physician Review Events Since Last Encounter (Free Text): 12/23/16 15:27 patient is seen, examined at bedside. case discussed in detail in am rounds with multidisciplinary team. agree with plan of care as detailed in resident's note CCU Objective - Vital Signs / Intake & Output Vital Signs (Last 4 hours): Vital Signs Temp Pulse Resp BP Pulse Ox 12/23/16 12:00 98 F 84 22 119/52 L 100 Intake and Output (Last 8hrs): Intake & Output 12/23/16 12/23/16 12/23/16 06:59 14:59 22:59 Intake Total 840 918 Balance 840 918 Intake: IV 600 168 Intake, Piggyback 500 Oral 240 250 - Medications Active Medications: Active Medications Generic Name Dose Route Start Last Admin Trade Name Freq PRN Reason Stop Dose Admin Acetaminophen 650 mg 12/17/16 23:08 12/17/16 23:54 Tylenol 650mg/20.3ml Solution Ud PO 650 mg Q4 PRN Administration Temperature Albuterol/Ipratropium 3 ml 12/20/16 12:00 12/23/16 11:35 Duoneb 3 Mg/0.5 Mg (3 Ml) Ud INH 3 ml RQID MALA Administration Enoxaparin Sodium 40 mg 12/24/16 09:00 Lovenox SC DAILY MALA Protocol Haloperidol Lactate 2 mg 12/23/16 09:48 12/23/16 10:10 Haldol IM 2 mg Q6 PRN Administration Agitation Ciprofloxacin 400 mg in 200 mls @ 200 mls/hr 12/17/16 21:00 12/23/16 08:57 Cipro 400mg/200ml Dsw IVPB 200 mls/hr Q12 MALA Administration Vancomycin HCl 1 gm/ Sodium 250 mls @ 166.667 mls/hr 12/18/16 09:00 12/23/16 09:02 Chloride IVPB 166.667 mls/hr DAILY MALA Administration Methylprednisolone 60 mg/ 50 mls @ 100 mls/hr 12/20/16 11:30 12/23/16 09:01 Sodium Chloride IVPB 100 mls/hr Q12 MALA Administration Sodium Chloride 1,000 mls @ 75 mls/hr 12/22/16 20:30 12/22/16 20:39 Sodium Chloride 0.9% IV 12/23/16 20:30 75 mls/hr .[id number] MALA Administration Insulin Human Lispro 0 units 12/20/16 23:45 12/23/16 11:38 Humalog SC 3 units Q6H MALA Administration Protocol Pantoprazole Sodium 40 mg 12/17/16 12:30 12/22/16 08:28 Protonix Inj IVP 40 mg DAILY MALA Administration - Patient Studies Lab Studies: Microbiology Studies 12/21/16 08:05 Gram Stain - Final Trachasp Sputum Culture - Final Yeast Species Lab Studies 12/23/16 12/23/16 12/23/16 Range/Units 11:28 06:15 06:15 WBC 13.0 H (4.8-10.8) K/uL RBC 3.43 L (4.40-5.90) Mil/uL Hgb 10.6 L (12.0-18.0) g/dL Hct 32.8 L (35.0-51.0) % MCV 95.5 H (80.0-94.0) fl MCH 31.0 (27.0-31.0) pg MCHC 32.4 L (33.0-37.0) g/dL RDW 13.6 (11.5-14.5) % Plt Count 139 (130-400) K/uL Sodium 142 (132-148) mmol/l Potassium 3.9 (3.6-5.0) MMOL/L Chloride 110 H (98-107) mmol/L Carbon Dioxide 26 (22-30) mmol/L Anion Gap 10 (10-20) BUN 24 H (9-20) mg/dl Creatinine 0.9 (0.8-1.5) mg/dL Est GFR ( Amer) > 60 Est GFR (Non-Af Amer) > 60 POC Glucose (mg/dL) 274 H (65-110) mg/dL Random Glucose 260 H (75-110) mg/dL Calcium 8.2 L (8.4-10.2) mg/dL 12/23/16 12/22/16 12/22/16 Range/Units 06:10 21:48 15:59 WBC (4.8-10.8) K/uL RBC (4.40-5.90) Mil/uL Hgb (12.0-18.0) g/dL Hct (35.0-51.0) % MCV (80.0-94.0) fl MCH (27.0-31.0) pg MCHC (33.0-37.0) g/dL RDW (11.5-14.5) % Plt Count (130-400) K/uL Sodium (132-148) mmol/l Potassium (3.6-5.0) MMOL/L Chloride (98-107) mmol/L Carbon Dioxide (22-30) mmol/L Anion Gap (10-20) BUN (9-20) mg/dl Creatinine (0.8-1.5) mg/dL Est GFR ( Amer) Est GFR (Non-Af Amer) POC Glucose (mg/dL) 294 H 215 H 354 H (65-110) mg/dL Random Glucose (75-110) mg/dL Calcium (8.4-10.2) mg/dL Laboratory Results - last 24 hr 12/22/16 12/22/16 12/23/16 15:59 21:48 06:10 WBC RBC Hgb Hct MCV MCH MCHC RDW Plt Count Sodium Potassium Chloride Carbon Dioxide Anion Gap BUN Creatinine Est GFR ( Amer) Est GFR (Non-Af Amer) POC Glucose (mg/dL) 354 H 215 H 294 H Random Glucose Calcium 12/23/16 12/23/16 12/23/16 06:15 06:15 11:28 WBC 13.0 H RBC 3.43 L Hgb 10.6 L Hct 32.8 L MCV 95.5 H MCH 31.0 MCHC 32.4 L RDW 13.6 Plt Count 139 Sodium 142 Potassium 3.9 Chloride 110 H Carbon Dioxide 26 Anion Gap 10 BUN 24 H Creatinine 0.9 Est GFR ( Amer) > 60 Est GFR (Non-Af Amer) > 60 POC Glucose (mg/dL) 274 H Random Glucose 260 H Calcium 8.2 L
--- NOTE | 2016-12-23 10:47 | CP.PCM.PN ---
Subjective - Date & Time of Evaluation Date of Evaluation: 12/23/16 Time of Evaluation: 10:47 - Subjective Subjective: off vent, nofeedings pending ST eval and family decision on feeding tube vs clearance by speech for oral feedings. pending famliy dispo for comfort care vs aggressive measures no f/c, n/v/d. case d/c w/ icu team consults aprpiciated. bw noted. pt remains agitated.restrained. nsr on monitor. haldol prn Objective - Vital Signs/Intake and Output Vital Signs (last 24 hours): Temp Pulse Resp BP Pulse Ox 98.2 F 91 H 25 H 141/63 98 12/23/16 07:52 12/23/16 10:00 12/23/16 10:00 12/23/16 10:00 12/23/16 10:00 Intake and Output: 12/23/16 12/23/16 06:59 18:59 Intake Total 1333 668 Balance 1333 668 - Medications Medications: Current Medications Acetaminophen (Tylenol 650mg/20.3ml Solution Ud) 650 mg PO Q4 PRN PRN Reason: Temperature Last Admin: 12/17/16 23:54 Dose: 650 mg Albuterol/Ipratropium (Duoneb 3 Mg/0.5 Mg (3 Ml) Ud) 3 ml INH RQID [facility] Last Admin: 12/23/16 08:00 Dose: Not Given Haloperidol Lactate (Haldol) 2 mg IM Q6 PRN PRN Reason: Agitation Last Admin: 12/23/16 10:10 Dose: 2 mg Ciprofloxacin (Cipro 400mg/200ml Dsw) 400 mg in 200 mls @ 200 mls/hr IVPB Q12 [facility] Last Admin: 12/23/16 08:57 Dose: 200 mls/hr Vancomycin HCl 1 gm/ Sodium (Chloride) 250 mls @ 166.667 mls/hr IVPB DAILY [facility] Last Admin: 12/23/16 09:02 Dose: 166.667 mls/hr Methylprednisolone 60 mg/ (Sodium Chloride) 50 mls @ 100 mls/hr IVPB Q12 [facility] Last Admin: 12/23/16 09:01 Dose: 100 mls/hr Sodium Chloride (Sodium Chloride 0.9%) 1,000 mls @ 75 mls/hr IV .[id number] [facility] Stop: 12/23/16 20:30 Last Admin: 12/22/16 20:39 Dose: 75 mls/hr Insulin Human Lispro (Humalog) 0 units SC Q6H [facility] PRN Reason: Protocol Last Admin: 12/23/16 07:14 Dose: 3 units Pantoprazole Sodium (Protonix Inj) 40 mg IVP DAILY [facility] Last Admin: 12/22/16 08:28 Dose: 40 mg - Labs Labs: 12/23/16 06:15 12/23/16 06:15 PT 12.9 SECONDS (9.6-11.2) H 12/18/16 04:40 INR 1.24 (0.92-1.08) H 12/18/16 04:40 APTT 26.6 SECONDS (23.3-32.5) 12/18/16 04:40 - Constitutional Appears: Non-toxic, No Acute Distress, Agitated - Head Exam Head Exam: ATRAUMATIC, NORMAL INSPECTION, NORMOCEPHALIC - Eye Exam Eye Exam: EOMI, Normal appearance, PERRL Pupil Exam: NORMAL ACCOMODATION, PERRL - ENT Exam ENT Exam: Mucous Membranes Moist, Normal Exam - Neck Exam Neck Exam: Full ROM, Normal Inspection. absent: Lymphadenopathy - Respiratory Exam Respiratory Exam: Clear to Ausculation Bilateral, NORMAL BREATHING PATTERN - Cardiovascular Exam Cardiovascular Exam: REGULAR RHYTHM, RRR, +S1, +S2. absent: Murmur - GI/Abdominal Exam GI & Abdominal Exam: Soft, Normal Bowel Sounds. absent: Tenderness - Rectal Exam Rectal Exam: NORMAL INSPECTION - Extremities Exam Extremities Exam: Full ROM, Normal Capillary Refill, Normal Inspection. absent : Joint Swelling, Pedal Edema - Back Exam Back Exam: NORMAL INSPECTION - Neurological Exam Neurological Exam: Abnormal Gait, Alert, Altered, Awake, CN II-XII Intact - Psychiatric Exam Psychiatric exam: Normal Affect, Normal Mood - Skin Skin Exam: Dry, Intact, Normal Color, Warm Assessment and Plan (1) Pneumonia Status: Acute (2) Respiratory failure Status: Acute (3) Altered mental status Status: Acute (4) DVT prophylaxis Status: Acute - Assessment and Plan (Free Text) Assessment: (1) Pneumonia Assessment & Plan: cont anbx, off vent pulm, ID, icu cxr balance of sedation for agitation w/ respirations Status: Acute (2) Respiratory failure Assessment & Plan: vent, sedation icu care weaning protocols-now off vent. will montor cautiously Status: Acute (3) Altered mental status Assessment & Plan: ?? icu delerium case d/c w/ sonon sequlae of this haldol prn psych when stable Status: Acute (4) DVT prophylaxis Assessment & Plan: scd and aehose anticoag Status: Acute hospice rep d/c car ew/ son, speech ocnsult pending, ?? peg, ?? aggressive vs comfort, overall progross poor/guarded
[2016-12-23] MEDS: Sodium Chloride 0.9% 1,000 ML IV SCH (16:30)
--- NOTE | 2016-12-23 21:05 | CP.PCM.PCO ---
Physician Communication Note - Physician Communication Note Physician Communication Note: Patient pulled out his left femoral triple lumen catheter. No bleeding.
[2016-12-24 05:03] LABS: HEMATOCRIT 32.5 % (35.0-51.0); MEAN CELL VOLUME 95.9 fl (80.0-94.0); MEAN CORPUSCULAR HEMOGLOBIN 30.5 pg (27.0-31.0); MEAN CORPUSCULAR HGB CONC 31.8 g/dL (33.0-37.0); WHITE BLOOD COUNT 10.2 K/uL (4.8-10.8)
[2016-12-24 05:12] LABS: BLOOD UREA NITROGEN 22 mg/dl (9-20); CALCIUM 8.2 mg/dL (8.4-10.2); CARBON DIOXIDE 25 mmol/L (22-30); CHLORIDE 110 mmol/L (98-107); GFR AFRICAN-AMERICAN > 60; GLUCOSE,RANDOM 283 mg/dL (75-110); POTASSIUM 4.3 MMOL/L (3.6-5.0); SODIUM 142 mmol/l (132-148)
[2016-12-24] MEDS: Insulin Lispro (humaLOG) 100 Units/ml Inj SC SCH ×4 (06:00→22:57)
[2016-12-24] MEDS: Sodium Chloride 0.9% 1,000 ML IV SCH (06:01)
--- NOTE | 2016-12-24 07:22 | CP.PCM.PN ---
Subjective - Date & Time of Evaluation Date of Evaluation: 12/24/16 Time of Evaluation: 07:22 - Subjective Subjective: pt remians agitated despite medication. pulled tlc-care rendered by icu teambw noted. vss. case d/c w/ son-bradley who wanted to htink about peg tube vs other care. no distress at present. pt to be downgraded to tele and placed on 1:1. Objective - Vital Signs/Intake and Output Vital Signs (last 24 hours): Temp Pulse Resp BP Pulse Ox 98.7 F 99 H 30 H 116/61 100 12/24/16 04:00 12/24/16 06:00 12/24/16 06:00 12/24/16 06:00 12/24/16 06:00 Intake and Output: 12/24/16 12/24/16 06:59 18:59 Intake Total 937 Output Total 350 Balance 587 - Medications Medications: Current Medications Acetaminophen (Tylenol 650mg/20.3ml Solution Ud) 650 mg PO Q4 PRN PRN Reason: Temperature Last Admin: 12/17/16 23:54 Dose: 650 mg Albuterol/Ipratropium (Duoneb 3 Mg/0.5 Mg (3 Ml) Ud) 3 ml INH RQID [facility] Last Admin: 12/23/16 19:40 Dose: 3 ml Enoxaparin Sodium (Lovenox) 40 mg SC DAILY [facility] PRN Reason: Protocol Haloperidol Lactate (Haldol) 2 mg IM Q6 PRN PRN Reason: Agitation Last Admin: 12/23/16 23:16 Dose: 2 mg Vancomycin HCl 1 gm/ Sodium (Chloride) 250 mls @ 166.667 mls/hr IVPB DAILY [facility] Last Admin: 12/23/16 09:02 Dose: 166.667 mls/hr Methylprednisolone 60 mg/ (Sodium Chloride) 50 mls @ 100 mls/hr IVPB Q12 [facility] Last Admin: 12/23/16 20:14 Dose: 100 mls/hr Insulin Human Lispro (Humalog) 0 units SC Q6H [facility] PRN Reason: Protocol Last Admin: 12/24/16 06:00 Dose: 4 units Pantoprazole Sodium (Protonix Inj) 40 mg IVP DAILY [facility] Last Admin: 12/22/16 08:28 Dose: 40 mg - Labs Labs: 12/24/16 04:15 12/24/16 04:15 PT 12.9 SECONDS (9.6-11.2) H 12/18/16 04:40 INR 1.24 (0.92-1.08) H 12/18/16 04:40 APTT 26.6 SECONDS (23.3-32.5) 12/18/16 04:40 - Constitutional Appears: Non-toxic, No Acute Distress, Agitated, Confused, Chronically Ill - Head Exam Head Exam: ATRAUMATIC, NORMAL INSPECTION, NORMOCEPHALIC - Eye Exam Eye Exam: EOMI, Normal appearance, PERRL Pupil Exam: NORMAL ACCOMODATION, PERRL - ENT Exam ENT Exam: Mucous Membranes Moist, Normal Exam - Neck Exam Neck Exam: Full ROM, Normal Inspection. absent: Lymphadenopathy - Respiratory Exam Respiratory Exam: NORMAL BREATHING PATTERN Additional comments: congested - Cardiovascular Exam Cardiovascular Exam: REGULAR RHYTHM, RRR, +S1, +S2. absent: Murmur - GI/Abdominal Exam GI & Abdominal Exam: Soft, Normal Bowel Sounds. absent: Tenderness - Extremities Exam Extremities Exam: Full ROM, Normal Capillary Refill, Normal Inspection. absent : Joint Swelling, Pedal Edema - Back Exam Back Exam: NORMAL INSPECTION - Neurological Exam Neurological Exam: Alert, Awake, CN II-XII Intact, Normal Gait, Oriented x3 - Psychiatric Exam Psychiatric exam: Normal Affect, Normal Mood - Skin Skin Exam: Dry, Intact, Normal Color, Warm Assessment and Plan (1) Pneumonia Status: Acute (2) Respiratory failure Status: Acute (3) Altered mental status Status: Acute (4) DVT prophylaxis Status: Acute - Assessment and Plan (Free Text) Assessment: (1) Pneumonia Assessment & Plan: cont anbx, off vent pulm, ID, icu cxr balance of sedation for agitation w/ respirations Status: Acute (2) Respiratory failure Assessment & Plan: cont to monitor resps, pulm Status: Acute (3) Altered mental status Assessment & Plan: ?? icu delerium case d/c w/ sonon sequlae of this haldol prn psych when stable, cont sedation, 1:1, restraints Status: Acute (4) DVT prophylaxis Assessment & Plan: scd and aehose anticoag Status: Acute hospice rep d/c car ew/ son, speech ocnsult pending, ?? peg, ?? aggressive vs comfort, overall progross poor/guarded
[2016-12-24] MEDS: Albuterol-Ipratrop 3 mg / 0.5 (3 ml) UD INH SCH ×4 (08:16→19:24)
--- NOTE | 2016-12-24 08:43 | CP.CCUPN ---
CCU Subjective - Physician Review Subjective (Free Text): EDUCATION REPORTER PROGRESS NOTE Patient examined, interim events reviewed: Extubated 2 days ago, on nasal cannula now, remains intermittently agitataed, requiring Ativan overnoight and started on prn Haldol yesterday. He does not follow commands even in [place]; otherwise-asking for water. Afebrile, no new fever spikes, BP 116/80, HR 96, RR 20, SPO2 remains at 100%. Last 24H I/Os = 2305/750ml. ROS: as above, no other obtainable pertinent negs or positives on 12 system review from other documentations. PMSFH: All nursing and physician documentation reviewed, no new information noted pertinent to current medical problems. No other distress noted: EXAM- HEENT: no icterus, pupils pinpoint but equal and reactive bilat, no nystagmus NECK: no visible JVD, supple, carotids equal upstroke bilat/no bruits CHEST: decreased BS bases, no wheezes audible HEART: regular, distant, tachy S1S2, no murmur audible, no rubs. ABD: soft, obese, no distention, no focal tenderness, no HSM. BS hypoactive, no abdominal bruits or other masses EXT: no leg edema, no peripheral/ digital cyanosis, no calf tenderness or palpable cords, distal pulses intact and symmetrical NEURO: No focal motor deficits, + tone all extremities. SKIN: no rashes LABS: WBC= 10.2 HGB= 10.3 PLTs= 126K Na= 142 K= 4.3 HCO3= 25 BUN/Cr= 22/0.8 BS= 283 CXR 12/22/16- reviewed, as stated in my last note ( my interp): bibasilar haziness. MAJOR PROBLEMS: 1. Acute Hypoxemic Hypercapneic Resp Failure with recent extubation 2. Pneumonitis, r/o Aspiration event 3. Sepsis with Shock, r/o Bacteremia 4. AMS 2 Toxic-metabolic / Septic Encephalopathy, and previous Delirium- unresolved from last major hospitalization at [facility] ICU stay. PLAN: 1. Try to avoid BZDPs for sedation, which will add to Delirium. 2. Maintain 1:1 supervision. Re-orientation with social, environmental cues, and family interaction as tolerated. 3. Check repeat CXR, Lasix IV PRN. He did receive a fair amount of IVFs during resuscitation and weaning from vasopressor therapy. 4. Watch platelet counts, slow decrease noted. 5. Continue empiric abx covergae for full 10 day course at the minimum. 6. Maintain normoglycemia as tolerated. He was on Januvia and Tradjenta in the past. 7. Other Psych meds remain on hold.
[2016-12-24] MEDS: Enoxaparin 40 mg Syringe SC SCH (08:50)
[2016-12-24] MEDS: methylPREDNISolone 60 MG in Sodium Chloride 0.9% 50 ML IVPB SCH ×2 (08:51→21:01)
--- NOTE | 2016-12-24 09:37 | CP.PCM.PN ---
Subjective - Date & Time of Evaluation Date of Evaluation: 12/24/16 Time of Evaluation: 09:38 - Subjective Subjective: episodes of agitation persist 1to 1 nursing care Objective - Vital Signs/Intake and Output Vital Signs (last 24 hours): Temp Pulse Resp BP Pulse Ox 97.6 F 96 H 27 H 116/62 100 12/24/16 08:00 12/24/16 08:00 12/24/16 08:00 12/24/16 08:00 12/24/16 08:00 Intake and Output: 12/24/16 12/24/16 06:59 18:59 Intake Total 937 150 Output Total 350 Balance 587 150 - Medications Medications: Current Medications Acetaminophen (Tylenol 650mg/20.3ml Solution Ud) 650 mg PO Q4 PRN PRN Reason: Temperature Last Admin: 12/17/16 23:54 Dose: 650 mg Albuterol/Ipratropium (Duoneb 3 Mg/0.5 Mg (3 Ml) Ud) 3 ml INH RQID [facility] Last Admin: 12/24/16 08:16 Dose: 3 ml Enoxaparin Sodium (Lovenox) 40 mg SC DAILY [facility] PRN Reason: Protocol Last Admin: 12/24/16 08:50 Dose: 40 mg Haloperidol Lactate (Haldol) 2 mg IM Q6 PRN PRN Reason: Agitation Last Admin: 12/24/16 08:49 Dose: 2 mg Vancomycin HCl 1 gm/ Sodium (Chloride) 250 mls @ 166.667 mls/hr IVPB DAILY [facility] Last Admin: 12/24/16 08:51 Dose: 166.667 mls/hr Methylprednisolone 60 mg/ (Sodium Chloride) 50 mls @ 100 mls/hr IVPB Q12 [facility] Last Admin: 12/24/16 08:51 Dose: 100 mls/hr Insulin Human Lispro (Humalog) 0 units SC Q6H [facility] PRN Reason: Protocol Last Admin: 12/24/16 06:00 Dose: 4 units Pantoprazole Sodium (Protonix Inj) 40 mg IVP DAILY [facility] Last Admin: 12/24/16 08:50 Dose: 40 mg - Labs Labs: 12/24/16 04:15 12/24/16 04:15 PT 12.9 SECONDS (9.6-11.2) H 12/18/16 04:40 INR 1.24 (0.92-1.08) H 12/18/16 04:40 APTT 26.6 SECONDS (23.3-32.5) 12/18/16 04:40 - Constitutional Appears: Chronically Ill - Head Exam Head Exam: ATRAUMATIC, NORMAL INSPECTION, NORMOCEPHALIC - Eye Exam Eye Exam: EOMI, Normal appearance, PERRL Pupil Exam: NORMAL ACCOMODATION, PERRL - ENT Exam ENT Exam: Mucous Membranes Moist, Normal Exam - Neck Exam Neck Exam: Full ROM, Normal Inspection. absent: Lymphadenopathy - Respiratory Exam Respiratory Exam: Prolonged Expiratory Phase, Rales, NORMAL BREATHING PATTERN Additional comments: on nasal canula 02 - Cardiovascular Exam Cardiovascular Exam: REGULAR RHYTHM, +S1, +S2. absent: Murmur - GI/Abdominal Exam GI & Abdominal Exam: Soft, Normal Bowel Sounds. absent: Tenderness - Rectal Exam Rectal Exam: NORMAL INSPECTION - Extremities Exam Extremities Exam: absent: Joint Swelling, Pedal Edema - Back Exam Back Exam: NORMAL INSPECTION - Skin Skin Exam: Dry, Intact, Normal Color, Warm Assessment and Plan - Assessment and Plan (Free Text) Assessment: respiratory failure--improved pneumonia Plan: repeat cxr in am continue present rx
[2016-12-24] MEDS: Ciprofloxacin 400mg/200ml D5W 400 MG/200 ML BAG IVPB SCH ×2 (16:45→21:15)
[2016-12-24] MEDS: Piperacillin/Tazobact 3.375 GM in Sodium Chloride 0.9% 100 ML IVPB SCH (21:07)
[2016-12-25] MEDS: Piperacillin/Tazobact 3.375 GM in Sodium Chloride 0.9% 100 ML IVPB SCH ×2 (04:00→09:48)
[2016-12-25 04:21] VITALS: O2SAT 94
[2016-12-25] MEDS: Insulin Lispro (humaLOG) 100 Units/ml Inj SC SCH (07:11)
[2016-12-25] MEDS: Enoxaparin 40 mg Syringe SC SCH (08:54)
[2016-12-25] MEDS: Albuterol-Ipratrop 3 mg / 0.5 (3 ml) UD INH SCH ×2 (08:54→11:53)
--- NOTE | 2016-12-25 08:54 | CP.PCM.PN ---
Subjective - Date & Time of Evaluation Date of Evaluation: 12/25/16 Time of Evaluation: 08:51 - Subjective Subjective: still agitated but remaisn on 1:1 w/ restraints. for hospice when family signs onto care. no distress. Objective - Vital Signs/Intake and Output Vital Signs (last 24 hours): Temp Pulse Resp BP Pulse Ox 98.5 F 94 H 21 118/71 94 L 12/25/16 07:01 12/25/16 07:01 12/25/16 07:01 12/25/16 07:01 12/25/16 07:01 Intake and Output: 12/25/16 12/25/16 06:59 18:59 Intake Total 450 Output Total 200 Balance 250 - Medications Medications: Current Medications Acetaminophen (Tylenol 650mg/20.3ml Solution Ud) 650 mg PO Q4 PRN PRN Reason: Temperature Last Admin: 12/17/16 23:54 Dose: 650 mg Albuterol/Ipratropium (Duoneb 3 Mg/0.5 Mg (3 Ml) Ud) 3 ml INH RQID [facility] Last Admin: 12/24/16 19:24 Dose: 3 ml Enoxaparin Sodium (Lovenox) 40 mg SC DAILY [facility] PRN Reason: Protocol Last Admin: 12/24/16 08:50 Dose: 40 mg Vancomycin HCl 1 gm/ Sodium (Chloride) 250 mls @ 166.667 mls/hr IVPB DAILY [facility] Last Admin: 12/24/16 08:51 Dose: 166.667 mls/hr Methylprednisolone 60 mg/ (Sodium Chloride) 50 mls @ 100 mls/hr IVPB Q12 [facility] Last Admin: 12/24/16 21:01 Dose: 100 mls/hr Ciprofloxacin (Cipro 400mg/200ml Dsw) 400 mg in 200 mls @ 200 mls/hr IVPB Q12 [facility] Last Admin: 12/24/16 21:15 Dose: 200 mls/hr Piperacillin Sod/Tazobactam (Sod 3.375 gm/ Sodium Chloride) 100 mls @ 100 mls/ hr IVPB Q6 [facility] Last Admin: 12/25/16 04:00 Dose: 100 mls/hr Sodium Chloride (Sodium Chloride 0.9%) 1,000 mls @ 75 mls/hr IV .[id number] [facility] Stop: 12/26/16 00:41 Insulin Human Lispro (Humalog) 0 units SC Q6H [facility] PRN Reason: Protocol Last Admin: 12/25/16 07:11 Dose: 2 units Lorazepam (Ativan) 1 mg IVP Q6 PRN PRN Reason: Agitation Last Admin: 12/24/16 16:50 Dose: 1 mg Pantoprazole Sodium (Protonix Inj) 40 mg IVP DAILY [facility] Last Admin: 12/24/16 08:50 Dose: 40 mg - Labs Labs: 12/24/16 04:15 12/24/16 04:15 PT 12.9 SECONDS (9.6-11.2) H 12/18/16 04:40 INR 1.24 (0.92-1.08) H 12/18/16 04:40 APTT 26.6 SECONDS (23.3-32.5) 12/18/16 04:40 - Constitutional Appears: Well, Non-toxic, No Acute Distress - Head Exam Head Exam: ATRAUMATIC, NORMAL INSPECTION, NORMOCEPHALIC - Eye Exam Eye Exam: EOMI, Normal appearance, PERRL Pupil Exam: NORMAL ACCOMODATION, PERRL - ENT Exam ENT Exam: Mucous Membranes Moist, Normal Exam - Neck Exam Neck Exam: Full ROM, Normal Inspection. absent: Lymphadenopathy - Respiratory Exam Respiratory Exam: Clear to Ausculation Bilateral, NORMAL BREATHING PATTERN Additional comments: congested - Cardiovascular Exam Cardiovascular Exam: REGULAR RHYTHM, +S1, +S2. absent: Murmur - GI/Abdominal Exam GI & Abdominal Exam: Soft, Normal Bowel Sounds. absent: Tenderness - Extremities Exam Extremities Exam: Full ROM, Normal Capillary Refill, Normal Inspection. absent : Joint Swelling, Pedal Edema - Back Exam Back Exam: NORMAL INSPECTION - Neurological Exam Neurological Exam: Alert, Awake, CN II-XII Intact, Normal Gait, Oriented x3 - Psychiatric Exam Psychiatric exam: Normal Affect, Normal Mood - Skin Skin Exam: Dry, Intact, Normal Color, Warm Assessment and Plan (1) Pneumonia Assessment & Plan: anbx Status: Acute (2) Respiratory failure Assessment & Plan: hospice pna Status: Acute (3) Altered mental status Assessment & Plan: ativan prn 1:1, restraints Status: Acute (4) DVT prophylaxis Assessment & Plan: scd nad aehose anticoag for now Status: Acute
[2016-12-25] MEDS: methylPREDNISolone 60 MG in Sodium Chloride 0.9% 50 ML IVPB SCH (08:55)
[2016-12-25 09:16] VITALS: RESP 20
--- NOTE | 2016-12-25 12:39 | RAD ---
PROCEDURE: CHEST RADIOGRAPH, 1 VIEW portable semi erect study 08:00. HISTORY: pneumonia COMPARISON: Multiple serial examinations preceding the most recent study: December 22, 2016. FINDINGS: LUNGS: Persistent confluent lower lobe infiltrates. PLEURA: Persistent bilateral pleural effusions right larger than left. CARDIOVASCULAR: Normal. OSSEOUS STRUCTURES: No significant abnormalities. VISUALIZED UPPER ABDOMEN: Normal. OTHER FINDINGS: Removal of support apparatus since the prior study: Patient is been extubated in the interim. IMPRESSION: Persistent lower lobe infiltrates and effusions similar to that seen 12/22/2016.
[2016-12-25 13:02] VITALS: BP 130/62; PULSE 86; TEMP 97.4
[2016-12-25] MEDS ORDERED: Sodium Chloride 0.9% 1,000 ML IV SCH (19:00)
--- NOTE | 2016-12-26 09:08 | CP.PCM.DIS ---
Provider - Provider Date of Admission: 12/17/16 12:11 Attending physician: Gertrude Garcia MD Time Spent in preparation of Discharge (in minutes): 15 Diagnosis - Discharge Diagnosis (1) Pneumonia Status: Acute (2) Respiratory failure Status: Acute (3) Altered mental status Status: Acute (4) DVT prophylaxis Status: Acute Hospital Course - Lab Results Lab Results: Micro Results 12/21/16 08:05 Trachasp Gram Stain - Final 12/21/16 08:05 Trachasp Sputum Culture - Final Yeast Species 12/17/16 14:00 Nose MRSA Culture (Admit) - Final MRSA NOT DETECTED Most Recent Lab Values WBC 10.2 K/uL (4.8-10.8) 12/24/16 04:15 RBC 3.38 Mil/uL (4.40-5.90) L 12/24/16 04:15 Hgb 10.3 g/dL (12.0-18.0) L 12/24/16 04:15 Hct 32.5 % (35.0-51.0) L 12/24/16 04:15 MCV 95.9 fl (80.0-94.0) H 12/24/16 04:15 MCH 30.5 pg (27.0-31.0) 12/24/16 04:15 MCHC 31.8 g/dL (33.0-37.0) L 12/24/16 04:15 RDW 14.0 % (11.5-14.5) 12/24/16 04:15 Plt Count 126 K/uL (130-400) L 12/24/16 04:15 MPV 9.7 fl (7.2-11.7) 12/21/16 04:30 Neut % (Auto) 87.8 % (50.0-75.0) H 12/21/16 04:30 Lymph % (Auto) 9.6 % (20.0-40.0) L 12/21/16 04:30 Wetzel % (Auto) 2.5 % (0.0-10.0) 12/21/16 04:30 Eos % (Auto) 0.0 % (0.0-4.0) 12/21/16 04:30 Baso % (Auto) 0.1 % (0.0-2.0) 12/21/16 04:30 Neut # 7.8 K/uL (1.8-7.0) H 12/21/16 04:30 Lymph # 0.9 K/uL (1.0-4.3) L 12/21/16 04:30 Wetzel # 0.2 K/uL (0.0-0.8) 12/21/16 04:30 Eos # 0.0 K/uL (0.0-0.7) 12/21/16 04:30 Baso # 0.0 K/uL (0.0-0.2) 12/21/16 04:30 Neutrophils % (Manual) 80 % (42-75) H 12/18/16 04:40 Band Neutrophils % 6 % (0-2) H 12/18/16 04:40 Lymphocytes % (Manual) 7 % (20-50) L 12/18/16 04:40 Reactive Lymphs % 2 % (0-0) H 12/18/16 04:40 Monocytes % (Manual) 4 % (0-10) 12/18/16 04:40 Basophils % (Manual) 1 % (0-2) 12/18/16 04:40 Platelet Estimate Normal (NORMAL) 12/18/16 04:40 PT 12.9 SECONDS (9.6-11.2) H 12/18/16 04:40 INR 1.24 (0.92-1.08) H 12/18/16 04:40 APTT 26.6 SECONDS (23.3-32.5) 12/18/16 04:40 pCO2 34 mm/Hg (35-45) L 12/22/16 12:00 pO2 52 mm/Hg (80-100) L 12/22/16 12:00 HCO3 26.4 mmol/L (21-28) 12/22/16 12:00 ABG pH 7.48 (7.35-7.45) H 12/22/16 12:00 ABG Total CO2 26.3 mmol/L (22-28) 12/22/16 12:00 ABG O2 Saturation 93.9 % (95-98) L 12/22/16 12:00 ABG O2 Content 13.5 ML/dL (15-23) L 12/22/16 12:00 ABG Base Excess 2.0 mmol/L (-2.0-3.0) 12/22/16 12:00 ABG Hemoglobin 10.6 g/dL (11.7-17.4) L 12/22/16 12:00 ABG Carboxyhemoglobin 1.7 % (0.5-1.5) H 12/22/16 12:00 POC ABG HHb (Measured) 5.9 % (0.0-5.0) H 12/22/16 12:00 ABG Methemoglobin 1.8 % (0.0-3.0) 12/22/16 12:00 ABG O2 Capacity 14.4 mL/dL (16-24) L 12/22/16 12:00 Mo Test Yes 12/22/16 12:00 ABG Potassium 3.8 mmol/L (3.6-5.2) 12/18/16 05:26 VBG pH 7.45 (7.32-7.43) H 12/21/16 04:46 VBG pCO2 39 mmHg (40-60) L 12/21/16 04:46 VBG HCO3 26.4 mmol/L 12/21/16 04:46 VBG Total CO2 28.3 mmol/L (22-28) H 12/21/16 04:46 VBG O2 Sat (Calc) 72.2 % (40-65) H 12/21/16 04:46 VBG Base Excess 3.0 mmol/L (0.0-2.0) H 12/21/16 04:46 VBG Potassium 3.7 mmol/L (3.6-5.2) 12/21/16 04:46 A-a O2 Difference 191.0 mm/Hg 12/22/16 12:00 Hgb O2 Saturation 90.6 % (95.0-98.0) L 12/22/16 12:00 Sodium 139.0 mmol/L (132-148) 12/21/16 04:46 Chloride 110.0 mmol/L (98-107) H 12/21/16 04:46 Glucose 386 mg/dL (75-110) H 12/21/16 04:46 Lactate 2.1 mmol/L (0.7-2.1) 12/21/16 04:46 Vent Mode A/c 12/22/16 04:40 Mechanical Rate 10 12/22/16 04:40 FiO2 40.0 % 12/22/16 12:00 Tidal Volume 450 12/22/16 04:40 PEEP 5 12/22/16 12:00 CPAP 10 12/22/16 12:00 Crit Value Called To Smitha bright 12/17/16 14:05 Crit Value Called By Sk 12/17/16 14:05 Crit Value Read Back Y 12/17/16 14:05 Blood Gas Notified Time 533 12/18/16 05:26 Sodium 142 mmol/l (132-148) 12/24/16 04:15 Potassium 4.3 MMOL/L (3.6-5.0) 12/24/16 04:15 Chloride 110 mmol/L (98-107) H 12/24/16 04:15 Carbon Dioxide 25 mmol/L (22-30) 12/24/16 04:15 Anion Gap 11 (10-20) 12/24/16 04:15 BUN 22 mg/dl (9-20) H 12/24/16 04:15 Creatinine 0.8 mg/dL (0.8-1.5) 12/24/16 04:15 Est GFR ( Amer) > 60 12/24/16 04:15 Est GFR (Non-Af Amer) > 60 12/24/16 04:15 POC Glucose (mg/dL) 243 mg/dL (65-110) H 12/25/16 22:07 Random Glucose 283 mg/dL (75-110) H 12/24/16 04:15 Lactic Acid 1.9 MMOL/L (0.7-2.1) 12/21/16 04:30 Calcium 8.2 mg/dL (8.4-10.2) L 12/24/16 04:15 Phosphorus 5.2 mg/dl (2.5-4.5) H 12/17/16 13:54 Magnesium 2.0 MG/DL (1.6-2.3) 12/17/16 13:54 Total Bilirubin 0.2 mg/dl (0.2-1.3) 12/22/16 04:55 AST 23 U/L (17-59) 12/22/16 04:55 ALT 39 U/L (21-72) 12/22/16 04:55 Alkaline Phosphatase 144 U/L (38-126) H D 12/22/16 04:55 Troponin I 0.0200 ng/mL (0.00-0.120) 12/18/16 10:30 NT-Pro-B Natriuret Pep 748 pg/ml (0-900) 12/17/16 13:54 Total Protein 4.9 G/DL (6.3-8.2) L 12/22/16 04:55 Albumin 2.2 g/dL (3.5-5.0) L 12/22/16 04:55 Globulin 2.7 gm/dL (2.2-3.9) 12/22/16 04:55 Albumin/Globulin Ratio 0.8 (1.0-2.1) L 12/22/16 04:55 Arterial Blood Potassium 3.8 mmol/L (3.6-5.2) 12/18/16 05:26 Venous Blood Potassium 3.7 mmol/L (3.6-5.2) 12/21/16 04:46 Urine Color Abbi (YELLOW) 12/17/16 11:49 Urine Clarity Cloudy (Clear) 12/17/16 11:49 Urine pH 5.0 (5.0-8.0) 12/17/16 11:49 Ur Specific Wellman 1.024 (1.003-1.030) 12/17/16 11:49 Urine Protein >=500 mg/dL (NEGATIVE) 12/17/16 11:49 Urine Glucose (UA) 50 mg/dL (Normal) 12/17/16 11:49 Urine Ketones Trace mg/dL (NEGATIVE) 12/17/16 11:49 Urine Blood Moderate (NEGATIVE) 12/17/16 11:49 Urine Nitrate Negative (NEGATIVE) 12/17/16 11:49 Urine Bilirubin Small (NEGATIVE) 12/17/16 11:49 Urine Urobilinogen 2.0 mg/dL (0.2-1.0) 12/17/16 11:49 Ur Leukocyte Esterase Neg Kristen/uL (Negative) 12/17/16 11:49 Urine RBC (Auto) 128 /hpf (0-3) H 12/17/16 11:49 Urine Microscopic WBC 54 /hpf (0-5) H 12/17/16 11:49 Urine Bacteria Mod (<OCC) H 12/17/16 11:49 Hyaline Casts 0-2 /hpf (0-2) 12/17/16 11:49 Urine Sperm (Auto) Occ /hpf (NONE) 12/17/16 11:49 Vancomycin Trough 11.9 ug/mL (5.0-10.0) H 12/24/16 04:15 Valproic Acid 15.6 ug/mL (50.0-100.0) L 12/17/16 11:21 Discharge Exam - Head Exam Head Exam: ATRAUMATIC, NORMAL INSPECTION, NORMOCEPHALIC Discharge Plan - Follow Up Plan Condition: CRITICAL Disposition: HOSPICE - MEDICAL FACILITY Instructions: Altered Mental Status (GEN) Additional Instructions: for hospice-inpatient fianl dx-ams, resp failure
== END 2016-12-25 14:42 | disposition hospice, inpatient (51) | DRG 871 ==
LOC: H.ER 10:06 → H.ERHOLD 12:11 → H.ICU/CCU 12:35 → H.TEL 12-25 02:29
PROVIDERS: ADMIT Family Medicine; ATTEND Family Medicine
PROC: 0BH17EZ Insertion of Endotracheal Airway into Trachea, Via Natural or Artificial Opening (ICD-10-PCS; principal; 2016-12-17)
PROC: 5A1945Z Respiratory Ventilation, 24-96 Consecutive Hours (ICD-10-PCS; 2016-12-17)
PROC: 06HM33Z Insertion of Infusion Device into Right Femoral Vein, Percutaneous Approach (ICD-10-PCS; 2016-12-17)
PROC: 06HN33Z Insertion of Infusion Device into Left Femoral Vein, Percutaneous Approach (ICD-10-PCS; 2016-12-19)
PROC: 0BH17EZ Insertion of Endotracheal Airway into Trachea, Via Natural or Artificial Opening (ICD-10-PCS; 2016-12-20)
DX: A41.9 Sepsis, unspecified organism (principal); G92 Toxic encephalopathy; J69.0 Pneumonitis due to inhalation of food and vomit; J96.01 Acute respiratory failure with hypoxia; J96.02 Acute respiratory failure with hypercapnia; R65.21 Severe sepsis with septic shock; G93.41 Metabolic encephalopathy; F05 Delirium due to known physiological condition; I50.9 Heart failure, unspecified; F03.90 Unspecified dementia, unspecified severity, without behavioral disturbance, psychotic disturbance, mood disturbance, and anxiety; I11.0 Hypertensive heart disease with heart failure; E11.9 Type 2 diabetes mellitus without complications; Z78.1 Physical restraint status; R00.1 Bradycardia, unspecified; T42.6X5A Adverse effect of other antiepileptic and sedative-hypnotic drugs, initial encounter; R45.1 Restlessness and agitation

== ENCOUNTER 2016-12-25 14:42 | Inpatient (IN) | payer MEDICAID, MEDICARE, OTHER ==
[2016-12-25 16:12] VITALS: BMI 25.9
--- NOTE | 2016-12-26 07:44 | CP.PCM.HP ---
History of Present Illness - History of Present Illness History of Present Illness: pt now admitted to inpatient hospice. calm but w/ periods of agitation. no f/c, n/v/d. 1:1 remains. to be dc to [facility] when ready. Present on Admission - Present on Admission Any Indicators Present on Admission: No Past Patient History - Past Medical History & Family History Past Medical History?: Yes - Past Social History Smoking Status: Former Smoker - CARDIAC Hx Cardiac Disorders: Yes Hx Congestive Heart Failure: Yes Hx Hypercholesterolemia: No Hx Hypertension: Yes - PULMONARY Hx Respiratory Disorders: Yes Hx Chronic Obstructive Pulmonary Disease (COPD): No Hx Pneumonia: Yes - NEUROLOGICAL Hx Neurological Disorder: Yes HX Cerebrovascular Accident: No Hx Dementia: Yes - HEENT Hx HEENT Problems: Yes Hx Blind: No Hx Cataracts: No Hx Deafness: No Hx Difficulty Chewing: Yes Hx Epistaxis: No Hx Glaucoma: No Hx Macular Degeneration: No - RENAL Hx Chronic Kidney Disease: No Hx Renal Failure: No - ENDOCRINE/METABOLIC Hx Endocrine Disorders: Yes Hx Diabetes Mellitus Type 1: No Hx Diabetes Mellitus Type 2: Yes Hx Hypothyroidism: No - HEMATOLOGICAL/ONCOLOGICAL Hx Blood Disorders: No Hx Cancer: No - INTEGUMENTARY Hx Dermatological Problems: No Hx Basil Cell: No Hx Aguilera: No Hx Cellulitis: No Hx Eczema: No Hx Melanoma: No Hx Psoriasis: No - MUSCULOSKELETAL/RHEUMATOLOGICAL Hx Musculoskeletal Disorders: Yes Hx Falls: Yes - GASTROINTESTINAL Hx Gastrointestinal Disorders: Yes Hx Gastroesophageal Reflux: Yes - GENITOURINARY/GYNECOLOGICAL Hx Genitourinary Disorders: Yes Hx Bladder Cancer: No Hx Bladder Stone: No Hx Hematuria: No Hx Incontinence: Yes Hx Prostate Cancer: No Hx Prostate Problems: No Hx Reproductive Disorders: No Hx Sexually Transmitted Disorders: No Hx Urinary Tract Infection: No - PSYCHIATRIC Hx Substance Use: No - SURGICAL HISTORY Hx Surgeries: No Hx Abdominal Aortic Aneurysm Repair: No Hx Amputation: No Hx Angiogram: No Hx Angioplasty: No Hx Appendectomy: No Hx Arteriovenous Shunt: No Hx Arthroscopy: No Hx Bile Duct Stent: No Hx Breast Biopsy: No Hx Cataract Extraction: No Hx Cardiac Catheterization: No Hx Carotid Endarterectomy: No Hx Section: No Hx Cholecystectomy: No Hx Coronary Artery Bypass Graft: No Hx Coronary Stent: No Hx Dilation and Curettage: No Hx Eye Surgery: No Hx Femoral-Popliteal Bypass Graft: No Hx Gastric Bypass Surgery: No Hx Herniorrhaphy: No Hx Hysterectomy: No Hx Joint Replacement: No Hx Kidney Transplant: No Hx Liver Transplant: No Hx Mastectomy: No Hx Musculoskeletal Surgery: No Hx Open Heart Surgery: No Hx Open Reduction Internal Fixation: No Hx Orthopedic Surgery: No Hx Parathyroidectomy: No Hx Penile Implant: No Hx Pulmonary Surgery: No Hx Splenectomy: No Hx Thyroidectomy: No Hx Tonsillectomy: No Hx Tubal Ligation: No Hx Valve Replacement: No Hx Vascular Surgery: No Hx Vascular Access Device: No - ANESTHESIA Hx Anesthesia: No (UNKNOWN) Hx Anesthesia Reactions: No Hx Malignant Hyperthermia: No Meds Allergies/Adverse Reactions: Allergies Allergy/AdvReac Type Severity Reaction Status Date / Time No Known Allergies Allergy Verified 12/17/16 11:02 Physical Exam - Constitutional Appears: Non-toxic, No Acute Distress, Agitated, Cachectic - Head Exam Head Exam: ATRAUMATIC, NORMAL INSPECTION, NORMOCEPHALIC - Eye Exam Eye Exam: EOMI, Normal appearance, PERRL Pupil Exam: NORMAL ACCOMODATION, PERRL - ENT Exam ENT Exam: Mucous Membranes Moist, Normal Exam - Neck Exam Neck exam: Positive for: Normal Inspection - Respiratory Exam Respiratory Exam: Clear to Auscultation Bilateral, NORMAL BREATHING PATTERN - Cardiovascular Exam Cardiovascular Exam: REGULAR RHYTHM, RRR, +S1, +S2 - GI/Abdominal Exam GI & Abdominal Exam: Normal Bowel Sounds, Soft. absent: Tenderness - Extremities Exam Extremities exam: Positive for: full ROM, normal capillary refill, normal inspection, pedal pulses present - Back Exam Back exam: FULL ROM, NORMAL INSPECTION - Neurological Exam Neurological exam: Alert, CN II-XII Intact, Normal Gait, Oriented x3, Reflexes Normal - Psychiatric Exam Psychiatric exam: Normal Affect, Normal Mood - Skin Skin Exam: Dry, Intact, Normal Color, Warm Results - Vital Signs Recent Vital Signs: Last Vital Signs Temp 97.8 F 12/25/16 18:57 Pulse 97 H 12/25/16 18:57 Resp 20 12/25/16 18:57 BP 126/64 12/25/16 18:57 Pulse Ox 98 12/25/16 18:57 Assessment & Plan (1) Altered mental status Status: Acute (2) Respiratory failure Status: Acute - Assessment and Plan (Free Text) Assessment: pt on inpt hospice-morphine ativan prn. tyelnol prn fever. o2 prn. 1:1 for now. wtill dc to hospice when ready. will monitor closely Decision To Admit - Pt Status Changed To: Hospital Disposition Of: Inpatient - Admit Certification Admit to Inpatient:: After my assessment, the patient will require hospitalization for at least two midnights. This is because of the severity of symptoms shown, intensity of services needed, and/or the medical risk in this patient being treated as an outpatient. - . Bed Request Type: Inpatient Hospice Admitting Physician: Gertrude Garcia
--- NOTE | 2016-12-27 08:37 | CP.PCM.PN ---
Subjective - Date & Time of Evaluation Date of Evaluation: 12/27/16 Time of Evaluation: 08:35 - Subjective Subjective: pt comfortable at present. no f/c, n/v/d. 1:1 restarted as pt became agitated secondary to nasal cannula. pt calm now w/o nasal cannula. Objective - Vital Signs/Intake and Output Vital Signs (last 24 hours): Temp Pulse Resp BP Pulse Ox 97.7 F 89 20 126/69 90 L 12/27/16 07:57 12/27/16 07:57 12/27/16 07:57 12/27/16 07:57 12/27/16 07:57 - Medications Medications: Current Medications Acetaminophen (Tylenol 650 Mg Supp) 650 mg NM Q4 PRN PRN Reason: Fever >100.4 F Lorazepam (Ativan) 1 mg IM Q6 [facility] Last Admin: 12/27/16 04:39 Dose: 1 mg Morphine Sulfate (Morphine) 2 mg SC Q2 PRN PRN Reason: pain,agitation, dyspnea - Constitutional Appears: Well, Non-toxic, No Acute Distress - Head Exam Head Exam: ATRAUMATIC, NORMAL INSPECTION, NORMOCEPHALIC - Eye Exam Eye Exam: EOMI, Normal appearance, PERRL Pupil Exam: NORMAL ACCOMODATION, PERRL - ENT Exam ENT Exam: Mucous Membranes Moist, Normal Exam - Neck Exam Neck Exam: Full ROM, Normal Inspection. absent: Lymphadenopathy - Respiratory Exam Respiratory Exam: Clear to Ausculation Bilateral, NORMAL BREATHING PATTERN - Cardiovascular Exam Cardiovascular Exam: REGULAR RHYTHM, RRR, +S1, +S2. absent: Murmur - GI/Abdominal Exam GI & Abdominal Exam: Soft, Normal Bowel Sounds. absent: Tenderness - Extremities Exam Extremities Exam: Full ROM, Normal Capillary Refill, Normal Inspection. absent : Joint Swelling, Pedal Edema - Back Exam Back Exam: NORMAL INSPECTION - Neurological Exam Neurological Exam: Alert, Awake, CN II-XII Intact, Normal Gait, Oriented x3 - Psychiatric Exam Psychiatric exam: Normal Affect, Normal Mood - Skin Skin Exam: Dry, Intact, Normal Color, Warm Assessment and Plan (1) Altered mental status Status: Acute (2) Respiratory failure Status: Acute - Assessment and Plan (Free Text) Assessment: pt on inpt hospice-morphine ativan prn. tyelnol prn fever. o2 prn. 1:1 for now. wtill dc to hospice when ready. will monitor closely keep pt calm
[2016-12-27] MEDS ORDERED: Scopolamine 1.5 mg/24 hr Patch TD SCH (14:30)
--- NOTE | 2016-12-28 10:58 | CP.PCM.PN ---
Subjective - Date & Time of Evaluation Date of Evaluation: 12/28/16 Time of Evaluation: 10:57 - Subjective Subjective: calm and apperas comfrtable no distress on hspice. for?? return to [facility] no dyspnea Objective - Vital Signs/Intake and Output Vital Signs (last 24 hours): Temp Pulse Resp BP Pulse Ox 97.6 F 92 H 20 156/75 H 96 12/28/16 07:42 12/28/16 07:42 12/28/16 07:42 12/28/16 07:42 12/28/16 07:42 - Medications Medications: Current Medications Acetaminophen (Tylenol 650 Mg Supp) 650 mg SD Q4 PRN PRN Reason: Fever >100.4 F Lorazepam (Ativan) 1 mg IM Q6 [facility] Last Admin: 12/28/16 10:15 Dose: 1 mg Morphine Sulfate (Morphine) 2 mg SC Q2 PRN PRN Reason: pain,agitation, dyspnea Scopolamine (Transderm-Scop) 1 patch TD Q3D [facility] Last Admin: 12/27/16 14:49 Dose: 1 patch - Constitutional Appears: Non-toxic, Confused, Chronically Ill - Head Exam Head Exam: ATRAUMATIC, NORMAL INSPECTION, NORMOCEPHALIC - Eye Exam Eye Exam: EOMI, Normal appearance, PERRL Pupil Exam: NORMAL ACCOMODATION, PERRL - ENT Exam ENT Exam: Mucous Membranes Moist, Normal Exam - Neck Exam Neck Exam: Full ROM, Normal Inspection. absent: Lymphadenopathy - Respiratory Exam Respiratory Exam: Clear to Ausculation Bilateral, NORMAL BREATHING PATTERN - Cardiovascular Exam Cardiovascular Exam: REGULAR RHYTHM, RRR, +S1, +S2. absent: Murmur - GI/Abdominal Exam GI & Abdominal Exam: Soft, Normal Bowel Sounds. absent: Tenderness - Extremities Exam Extremities Exam: Full ROM, Normal Capillary Refill, Normal Inspection. absent : Joint Swelling, Pedal Edema - Back Exam Back Exam: NORMAL INSPECTION - Neurological Exam Neurological Exam: Abnormal Gait, Altered, Awake, CN II-XII Intact - Psychiatric Exam Psychiatric exam: Normal Affect, Normal Mood - Skin Skin Exam: Dry, Intact, Normal Color, Warm Assessment and Plan (1) Altered mental status Status: Acute (2) Respiratory failure Status: Acute - Assessment and Plan (Free Text) Assessment: hospice remains, been calm on meds, off 1:1 for inpatient hospice at [facility] tomorrow
[2016-12-29 00:44] VITALS: PULSE 98
--- NOTE | 2016-12-29 07:25 | CP.PCM.PN ---
Subjective - Date & Time of Evaluation Date of Evaluation: 12/29/16 Time of Evaluation: 07:25 - Subjective Subjective: pt comfortable in bed. nod istress.no agitation. for dc to [facility] today on hospice Objective - Vital Signs/Intake and Output Vital Signs (last 24 hours): Temp Pulse Resp BP Pulse Ox 98.4 F 98 H 19 135/70 96 12/29/16 00:44 12/29/16 00:44 12/29/16 00:44 12/29/16 00:44 12/29/16 00:44 - Medications Medications: Current Medications Acetaminophen (Tylenol 650 Mg Supp) 650 mg GA Q4 PRN PRN Reason: Fever >100.4 F Lorazepam (Ativan) 1 mg IM Q6 [facility] Last Admin: 12/29/16 05:01 Dose: 1 mg Morphine Sulfate (Morphine) 2 mg SC Q2 PRN PRN Reason: pain,agitation, dyspnea Scopolamine (Transderm-Scop) 1 patch TD Q3D [facility] Last Admin: 12/27/16 14:49 Dose: 1 patch - Constitutional Appears: Well, Non-toxic, No Acute Distress, Chronically Ill - Head Exam Head Exam: ATRAUMATIC, NORMAL INSPECTION, NORMOCEPHALIC - Eye Exam Eye Exam: EOMI, Normal appearance, PERRL Pupil Exam: NORMAL ACCOMODATION, PERRL - ENT Exam ENT Exam: Mucous Membranes Moist, Normal Exam - Neck Exam Neck Exam: Full ROM, Normal Inspection. absent: Lymphadenopathy - Respiratory Exam Respiratory Exam: Clear to Ausculation Bilateral, NORMAL BREATHING PATTERN - Cardiovascular Exam Cardiovascular Exam: REGULAR RHYTHM, RRR, +S1, +S2. absent: Murmur - GI/Abdominal Exam GI & Abdominal Exam: Soft, Normal Bowel Sounds. absent: Tenderness - Extremities Exam Extremities Exam: Full ROM, Normal Capillary Refill, Normal Inspection. absent : Joint Swelling, Pedal Edema - Back Exam Back Exam: NORMAL INSPECTION - Neurological Exam Neurological Exam: Alert, Awake, CN II-XII Intact, Normal Gait, Oriented x3 - Psychiatric Exam Psychiatric exam: Normal Affect, Normal Mood - Skin Skin Exam: Dry, Intact, Normal Color, Warm Assessment and Plan (1) Altered mental status Status: Acute (2) Respiratory failure Status: Acute - Assessment and Plan (Free Text) Assessment: cont current plan. dc to [facility] today
[2016-12-29 07:53] VITALS: BP 110/65; RESP 20; TEMP 97.5; O2SAT 99
--- NOTE | 2016-12-29 15:26 | CP.PCM.DIS ---
Provider - Provider Date of Admission: 12/25/16 16:13 Attending physician: Gertrude Garcia MD Time Spent in preparation of Discharge (in minutes): 15 Diagnosis - Discharge Diagnosis (1) Altered mental status Status: Acute (2) Respiratory failure Status: Acute Discharge Exam - Head Exam Head Exam: ATRAUMATIC, NORMAL INSPECTION, NORMOCEPHALIC Discharge Plan - Follow Up Plan Condition: GOOD Disposition: HOSPICE - MEDICAL FACILITY Instructions: COPD (Chronic Obstructive Pulmonary Disease) (DC) Additional Instructions: final dx-am, resp failure, [facility]ck [facility] rec, f/u [facility] there
== END 2016-12-29 13:29 | disposition hospice, inpatient (51) | DRG 189 ==
LOC: H.TEL 16:13 → H.MEDSURG1 18:40
PROVIDERS: ADMIT Family Medicine; ATTEND Family Medicine
DX: J96.00 Acute respiratory failure, unspecified whether with hypoxia or hypercapnia (principal); F03.90 Unspecified dementia, unspecified severity, without behavioral disturbance, psychotic disturbance, mood disturbance, and anxiety; I11.0 Hypertensive heart disease with heart failure; I50.9 Heart failure, unspecified; Z51.5 Encounter for palliative care; R41.82 Altered mental status, unspecified; J44.9 Chronic obstructive pulmonary disease, unspecified; E11.9 Type 2 diabetes mellitus without complications; R50.9 Fever, unspecified; Z87.891 Personal history of nicotine dependence